=== PATIENT | female | born 1965 | race Caucasian/White ===

== ENCOUNTER 2020-08-04 11:24 | Outpatient (REF) | payer OTHER, SELFPAY ==
[2020-08-04 13:35] LABS: Free T4 (Free Thyroxine) 0.92 ng/dL (0.71-1.85); Thyroid Stimulating Hormone 0.35 mIU/mL (0.32-4.0)
[2020-08-05 18:57] LABS: Triiodothyronine T3 Free 3.1 pg/mL (2.3-4.2)
[2020-08-06 13:22] LABS: Thyroglobulin Antibodies <1 IU/mL (< or = 1); Thyroid Peroxidase Antibodies 1 IU/mL (<9)
[2020-08-10 14:11] LABS: Thyrotropin Receptor Antibody 1.11 IU/L (<=2.00)
[2020-08-10 15:22] LABS: Thyroid Stimulating Immunoglob <89 % baseline (<140)
== END 2020-08-04 11:25 | disposition home or self-care (01) ==
LOC: HO.LAB 11:24
PROVIDERS: PCP Internal Medicine; Visit Provider Internal Medicine Endocrinology, Diabetes & Metabolism
DX: E05.00 Thyrotoxicosis with diffuse goiter without thyrotoxic crisis or storm (principal)
CPT/HCPCS: 36415; 83520; 84439; 84443; 84445; 84481; 86376; 86800

== ENCOUNTER 2020-08-05 10:11 | Outpatient (REF) | payer OTHER, SELFPAY ==
--- NOTE | 2020-08-05 10:50 | XR_ITS ---
EXAMINATION: XR knee RT 4V, XR knee LT 4V CLINICAL INFORMATION: Reason for Exam M19.90 - Unspecified osteoarthritis, unspecified site COMPARISON: None available at the time of this dictation. TECHNIQUE: frontal, lateral, tunnel and patella sunrise views FINDINGS: BONES: No fracture or dislocation is present. JOINTS: Narrowing of joint spaces and developed osteophytes from the edges of articular surfaces suggest degenerative osteoarthritis. SOFT TISSUE: Normal IMPRESSION: Mild DJD involving primarily medial compartments. There is no joint effusion.
[2020-08-05 12:25] LABS: Anion Gap 13 (12-20); Blood Urea Nitrogen 13 mg/dL (9-16); Carbon Dioxide 29 mmol/L (22-29); Chloride 101 mmol/L (96-108); Estimated Glomerular Filt Rate > 60; Glucose Fasting 81 mg/dL (60-99); Potassium 4.5 mmol/l (3.3-5.1); Rheumatoid Factor < 15.0 IU/mL (<15.0); Sodium 138 mmol/L (135-145)
[2020-08-05 13:10] LABS: Erythrocyte Sedimentation Rate 16 MM/HR (0-20)
== END 2020-08-05 10:12 | disposition home or self-care (01) ==
LOC: HO.LAB 10:11
PROVIDERS: PCP Internal Medicine; Visit Provider Nurse Practitioner Family
DX: M19.90 Unspecified osteoarthritis, unspecified site (principal); E05.00 Thyrotoxicosis with diffuse goiter without thyrotoxic crisis or storm; E04.9 Nontoxic goiter, unspecified
CPT/HCPCS: 36415; 73564; 80048; 85652; 86431; 99213

== ENCOUNTER 2020-09-01 12:31 | Outpatient (REF) | payer OTHER, SELFPAY | END 2020-09-01 12:32 | disposition home or self-care (01) | LOC: HO.LAB 12:31 | PROVIDERS: Visit Provider Internal Medicine | DX: Z20.828 Contact with and (suspected) exposure to other viral communicable diseases (principal) | CPT/HCPCS: C9803; U0003 ==

== ENCOUNTER 2020-09-18 11:21 | Outpatient (REF) | payer OTHER, SELFPAY ==
--- NOTE | 2020-09-18 11:38 | XR_ITS ---
EXAMINATION: XR ABDOMEN KUB CLINICAL INDICATION: R31.9 - Hematuria, unspecified COMPARISON: Lumbar spine radiographs 04/01/2020 TECHNIQUE: AP x2 views of the abdomen. FINDINGS: There are no visible urinary tract calculi. Calcified phleboliths is seen right lateral hemipelvis. There is moderate stool throughout the colon. No gaseous dilatation of bowel. The lung bases are clear. There are degenerative changes lumbosacral spine. XR/XR KUB IMPRESSION: No visible urinary tract calculi.
[2020-09-18 11:54] LABS: Urine Cytology See Pathology rpt
[2020-09-18 12:14] LABS: Glucose Urine UA NEG (NEG); Leukocyte Esterase Urine NEG (NEG); Nitrite Urine NEG (NEG); Specific Gravity - Urine 1.025 (1.005-1.025); Urine Blood 1+ (NEG); Urine Ketones NEG (NEG); Urine Protein NEG (NEG-TRACE)
[2020-09-18 12:16] LABS: Appearance Urine CLEAR; Color Urine YELLOW
[2020-09-18 12:44] LABS: Free T4 (Free Thyroxine) 0.86 ng/dL (0.71-1.85); Thyroid Stimulating Hormone 0.37 uIU/mL (0.32-4.0)
[2020-09-18 13:12] LABS: Mucus Urine TRACE /LPF; Squamous Epithelial Cell Urine TRACE /LPF; WBC Urine 0 /HPF (0-4)
[2020-09-19 10:38] LABS: Triiodothyronine T3 Total 99 ng/dL (76-181)
== END 2020-09-18 11:22 | disposition home or self-care (01) ==
LOC: HO.LAB 11:21
PROVIDERS: Internal Medicine Endocrinology, Diabetes & Metabolism; PCP Internal Medicine; Visit Provider Internal Medicine
DX: R31.9 Hematuria, unspecified (principal); E05.00 Thyrotoxicosis with diffuse goiter without thyrotoxic crisis or storm
CPT/HCPCS: 74018; 81001; 84439; 84443; 84480; 88112

== ENCOUNTER 2020-09-22 13:41 | Outpatient (REF) | payer OTHER, SELFPAY ==
[2020-09-22 14:18] LABS: Glucose Urine UA NEG (NEG); Leukocyte Esterase Urine NEG (NEG); Nitrite Urine NEG (NEG); PH 6.5 (5.0-8.0); Urine Blood TRACE (NEG); Urine Ketones NEG (NEG); Urine Protein NEG (NEG-TRACE)
[2020-09-22 14:19] LABS: Appearance Urine CLEAR; Color Urine YELLOW
[2020-09-22 14:33] LABS: WBC Urine 0 /HPF (0-4)
[2020-09-23 08:04] LABS: HBc Num1 0.05 S/CO (0.00-0.79); HBsAGNum1 0.23 S/CO (0.00-0.99); Hepatitis B Core Antibody Nonreactive (Nonreactive); Hepatitis B Surface Antigen Negative (Negative)
[2020-09-23 08:29] LABS: HBS Num1 0.15 mIU/mL (0-7.99); ~HepC Num1 0.06 S/CO (0.00-0.79); ~Hepatitis B Surface Antibody NONREACTIVE (Nonreactive); ~Hepatitis C Antibody Nonreactive (Nonreactive)
[2020-09-24 03:08] LABS: Mumps Virus IgG Antibody <9.00 AU/mL; Rubella IgG Antibody 2.89 Index; Rubeola IgG (Measles) >300.00 AU/mL; Varicella IgG Antibody >4000.00 index
== END 2020-09-22 13:42 | disposition home or self-care (01) ==
LOC: HO.LAB 13:41
PROVIDERS: PCP Internal Medicine; Visit Provider Internal Medicine
DX: R31.9 Hematuria, unspecified (principal); Z02.1 Encounter for pre-employment examination
CPT/HCPCS: 81001; 86704; 86706; 86735; 86762; 86765; 86787; 86803; 87340

== ENCOUNTER 2020-11-21 09:54 | Outpatient (REF) | payer OTHER, SELFPAY ==
[2020-11-21 10:15] LABS: MANUAL DIFF FLAG NO
[2020-11-21 10:25] LABS: Basophils Percent Auto 0.4 % (0-2); Eosinophils Absolute Auto 0.2 X10*3/uL (0.0-0.4); Eosinophils Percent Auto 3.5 % (0-4); Hematocrit 39.3 % (37-47); Imm Gran Abs Auto 0.01 X10*3/uL (0.00-0.03); Imm Gran Pct Auto 0.2 % (0.0-0.4); Lymphocytes Absolute Auto 1.7 X10*3/uL (1.2-4.9); Lymphocytes Percent Auto 34.3 % (20-40); Mean Corpuscular HGB Conc 33.1 g/dl (31.0-35.0); Mean Corpuscular Hemoglobin 31.4 pg (27.0-33.0); Mean Corpuscular Volume 94.9 fL (80-98); Mean Platelet Volume 9.4 fL (9.4-12.3); Monocytes Absolute Auto 0.3 X10*3/uL (0.1-1.2); Monocytes Percent Auto 6.4 % (2-11); Neutrophils Absolute Auto 2.7 X10*3/uL (2.0-8.3); Neutrophils Percent Auto 55.2 % (45-73); Platelet Count 342 X10*3/uL (160-400); Red Blood Count 4.14 X10*6/uL (4.20-5.50); Red Cell Distribution Width 11.4 % (11.0-16.0); White Blood Count 4.8 X10*3/uL (4.8-10.8)
[2020-11-21 10:50] LABS: Anion Gap 11 (12-20); Blood Urea Nitrogen 15 mg/dL (9-16); Calcium 9.7 mg/dL (8.4-10.2); Carbon Dioxide 29 mmol/L (22-29); Chloride 104 mmol/L (96-108); Cholesterol 252 mg/dL; Estimated Glomerular Filt Rate > 60; Glucose Fasting 94 mg/dL (60-99); HDL Cholesterol 49 mg/dL; LDL Cholesterol Calculated 183 mg/dl; Potassium 4.2 mmol/L (3.3-5.1); Rheumatoid Factor < 15.0 IU/mL (<15.0); Sodium 140 mmol/L (135-145); Triglycerides 103 mg/dL
[2020-11-21 11:10] LABS: TSH reflex Free T4 0.44 uIU/mL (0.32-4.0)
== END 2020-11-21 09:55 | disposition home or self-care (01) ==
LOC: HO.LAB 09:54
PROVIDERS: PCP Internal Medicine; Visit Provider Nurse Practitioner Family
DX: M19.90 Unspecified osteoarthritis, unspecified site (principal); M25.561 Pain in right knee; M25.562 Pain in left knee; E05.00 Thyrotoxicosis with diffuse goiter without thyrotoxic crisis or storm
CPT/HCPCS: 36415; 80048; 80061; 84443; 85025; 86431

== ENCOUNTER 2021-02-03 12:15 | Outpatient (REF) | payer OTHER, SELFPAY ==
--- NOTE | ~2021-02-03 | XR_ITS ---
EXAMINATION: XR ANKLE, RIGHT XR ANKLE, LEFT CLINICAL INFORMATION: M25.50 - Pain in unspecified joint COMPARISON: None TECHNIQUE: AP, lateral, and mortise views of each ankle. FINDINGS: RIGHT ANKLE: No fracture. Alignment is anatomic. Ankle mortise is symmetric. Joint spaces are maintained. No ankle joint effusion. Large enthesopathic spur is present at the Achilles tendon insertion on the calcaneus. LEFT ANKLE: No fracture. Alignment is anatomic. Ankle mortise is symmetric. Joint spaces are maintained. No ankle joint effusion. Large enthesopathic spurs are present at the Achilles tendon insertion and plantar fascial origin on the calcaneus. XR/XR ankle RT min 3V IMPRESSION: Large enthesopathic spurs at the Achilles tendon insertions on the calcanei bilaterally. Otherwise normal radiographs of the ankles.
--- NOTE | ~2021-02-03 | XR_ITS ---
EXAMINATION: XR ANKLE, RIGHT XR ANKLE, LEFT CLINICAL INFORMATION: M25.50 - Pain in unspecified joint COMPARISON: None TECHNIQUE: AP, lateral, and mortise views of each ankle. FINDINGS: RIGHT ANKLE: No fracture. Alignment is anatomic. Ankle mortise is symmetric. Joint spaces are maintained. No ankle joint effusion. Large enthesopathic spur is present at the Achilles tendon insertion on the calcaneus. LEFT ANKLE: No fracture. Alignment is anatomic. Ankle mortise is symmetric. Joint spaces are maintained. No ankle joint effusion. Large enthesopathic spurs are present at the Achilles tendon insertion and plantar fascial origin on the calcaneus. XR/XR ankle LT min 3V IMPRESSION: Large enthesopathic spurs at the Achilles tendon insertions on the calcanei bilaterally. Otherwise normal radiographs of the ankles.
== END 2021-02-03 12:16 | disposition home or self-care (01) ==
LOC: HO.XRAY 12:15
PROVIDERS: PCP Internal Medicine; Visit Provider Student in an Organized Health Care Education/Training Program
DX: M25.572 Pain in left ankle and joints of left foot (principal); M25.571 Pain in right ankle and joints of right foot
CPT/HCPCS: 73610; 99202

== ENCOUNTER 2021-02-06 09:41 | Outpatient (REF) | payer OTHER, SELFPAY ==
[2021-02-06 10:42] LABS: MANUAL DIFF FLAG NO
[2021-02-06 10:47] LABS: Basophils Percent Auto 0.2 % (0-2); Eosinophils Absolute Auto 0.1 X10*3/uL (0.0-0.4); Eosinophils Percent Auto 3.1 % (0-4); Hematocrit 41.3 % (37-47); Hemoglobin 13.9 g/dl (12.0-16.0); Lymphocytes Absolute Auto 1.6 X10*3/uL (1.2-4.9); Lymphocytes Percent Auto 36.9 % (20-40); Mean Corpuscular HGB Conc 33.7 g/dl (31.0-35.0); Mean Corpuscular Hemoglobin 31.7 pg (27.0-33.0); Mean Corpuscular Volume 94.3 fL (80-98); Mean Platelet Volume 9.7 fL (9.4-12.3); Monocytes Absolute Auto 0.3 X10*3/uL (0.1-1.2); Monocytes Percent Auto 6.1 % (2-11); Neutrophils Absolute Auto 2.3 X10*3/uL (2.0-8.3); Neutrophils Percent Auto 53.7 % (45-73); Platelet Count 313 X10*3/uL (160-400); Red Blood Count 4.38 X10*6/uL (4.20-5.50); Red Cell Distribution Width 11.1 % (11.0-16.0); White Blood Count 4.3 X10*3/uL (4.8-10.8)
[2021-02-06 11:05] LABS: Glucose Urine UA NEG (NEG); Leukocyte Esterase Urine NEG (NEG); Nitrite Urine NEG (NEG); PH 7.5 (5.0-8.0); Urine Blood TRACE (NEG); Urine Ketones NEG (NEG); Urine Protein NEG (NEG-TRACE)
[2021-02-06 11:25] LABS: Erythrocyte Sedimentation Rate 16 MM/HR (0-20)
[2021-02-06 11:26] LABS: Appearance Urine HAZY; Color Urine YELLOW
[2021-02-06 11:27] LABS: WBC Urine 0-2 /HPF (0-4)
[2021-02-06 11:28] LABS: Amorphous Sediment Urine 2+ /LPF; Mucus Urine 1+ /LPF; Squamous Epithelial Cell Urine 2+ /LPF
[2021-02-06 11:52] LABS: Alanine Aminotransferase 40 U/L (0-31); Albumin Level 4.4 g/dL (3.5-5.0); Alkaline Phosphatase 78 U/L (39-117); Anion Gap 13 (12-20); Aspartate Amino Transferase 22 U/L (5-31); Bilirubin Total 0.6 mg/dL (0.0-1.0); Blood Urea Nitrogen 16 mg/dL (9-16); Carbon Dioxide 28 mmol/L (22-29); Chloride 105 mmol/L (96-108); Cholesterol 238 mg/dL; Estimated Glomerular Filt Rate > 60; Glucose Fasting 93 mg/dL (60-99); HDL Cholesterol 43 mg/dL; LDL Cholesterol Calculated 153 mg/dl; Potassium 4.1 mmol/L (3.3-5.1); Rheumatoid Factor < 15.0 IU/mL (<15.0); Sodium 142 mmol/L (135-145); Total Protein 7.4 g/dL (6.5-8.0); Triglycerides 211 mg/dL
[2021-02-06 12:15] LABS: Thyroid Stimulating Hormone 0.41 uIU/mL (0.32-4.0)
[2021-02-07 08:52] LABS: Lyme Abs Screen <0.90 index
[2021-02-08 15:41] LABS: Cyclic Citrullinated Peptide <16 UNITS
[2021-02-10 11:43] LABS: Vitamin D 25-OH, D2 4 ng/mL; Vitamin D 25-OH, D3 55 ng/mL; Vitamin D 25-OH, Total 59 ng/mL (30-100)
== END 2021-02-06 09:42 | disposition home or self-care (01) ==
LOC: HO.LAB 09:41
PROVIDERS: PCP Internal Medicine; Visit Provider Student in an Organized Health Care Education/Training Program
DX: M25.50 Pain in unspecified joint (principal); M19.90 Unspecified osteoarthritis, unspecified site
CPT/HCPCS: 36415; 80053; 80061; 81001; 82306; 84443; 85025; 85652; 86140; 86200; 86431; 86617; 86618

== ENCOUNTER → 2021-02-18 15:41 | Outpatient (BNVA) | payer OTHER, SELFPAY | PROVIDERS: PCP Internal Medicine; Visit Provider Student in an Organized Health Care Education/Training Program | DX: M25.50 Pain in unspecified joint (principal); E78.5 Hyperlipidemia, unspecified | CPT/HCPCS: 99212 ==

== ENCOUNTER 2021-07-28 13:26 | Emergency (ER) | payer OTHER, SELFPAY ==
--- NOTE | ~2021-07-28 | XR_ITS ---
EXAMINATION: XR ANKLE, LEFT CLINICAL INFORMATION: Pain COMPARISON: Previous x-ray most recent January 2021 TECHNIQUE: AP, lateral, and mortise views of the left ankle. FINDINGS: Bone alignment is normal. No fracture or dislocation is seen. The ankle mortise is normal. There is a calcaneal spur at the Achilles tendon insertion. XR/XR ankle LT min 3V IMPRESSION: Calcaneal spur otherwise unremarkable exam.
[2021-07-28 14:30] VITALS: BP 136/73; PULSE 80; RESP 18; TEMP 36.1; O2SAT 100; BMI 27.0
--- NOTE | 2021-07-28 14:55 | ED_ITS ---
HPI - Extremity Injury (Lower) General Chief Complaint: Extremity Injury, Lower Stated Complaint: l ankle pain Time Seen by Provider: 07/28/21 13:30 Source: patient Mode of arrival: ambulatory Limitations: no limitations History of Present Illness HPI Narrative: 56-year-old female presenting to the ER with left ankle pain after she twisted her ankle at home early this morning. She reports severe pain whenever she tries to put pressure or weight on her foot. She is walking with a limp. She was unable to go to work. She has a history of several ankle sprains on both ankles. She denies any numbness, tingling, weakness, or wounds to her foot. complaint: ankle injury Onset (ago): hour(s) Type of Injury: inversion Place: home Severity: severe Severity scale (1-10): 8 Relieving factors: cold therapy and immobilization Exacerbating factors: weight bearing, movement and palpation Context: walking Associated symptoms: swelling and able to partially bear weight Other symptoms: none Treatments prior to arrival: cold therapy Related Data Home Medications Medication Instructions Recorded Confirmed acetaminophen 500 mg tablet 1,000 mg PO Q6H PRN 02/03/21 02/18/21 (Tylenol Extra Strength) menthol 16 % topical spray (Icy spray TOPICAL 02/03/21 02/18/21 Hot (menthol)) multivitamin 1 tab PO DAILY 02/03/21 02/18/21 Previous Rx's Medication Instructions Recorded diclofenac sodium 1 % topical gel 2 g TOPICAL BID #100 g 02/03/21 (Voltaren) ibuprofen 600 mg tablet 600 mg PO Q8H PRN #14 tab 07/28/21 Allergies Allergy/AdvReac Type Severity Reaction Status Date / Time No Known Allergies Allergy Verified 07/28/21 14:30 Review of Systems Review of Systems: Constitutional: No Fever, No Chills Cardiovascular: No Chest Pain, No SOB Gastrointestinal: No Nausea, No Vomiting Musculoskeletal: + joint pain, No Myalgias Skin: No Skin Lesions, No rash Neuro: No Weakness, No Numbness, No Dizziness, No Headache Psych: + Anxiety/Panic Heme/Lymph: No Bruising PMFSH Past Medical History Medical History Acute pain of both knees Arthritis Arthritis Arthritis Dyslipidemia GERD (gastroesophageal reflux disease) Goiter Graves' disease in remission Surgical History History of breast biopsy History of hysterectomy Family History Family History Father Hypertension Rheumatoid arthritis Mother Stroke Rheumatoid arthritis Paternal Grandfather Prostate cancer Paternal Uncle Prostate cancer Paternal Aunt Colon cancer Social History Social History Alcohol intake: never Advance Directives: No Advance Directives Information Provided: Yes Patient : No Physical Exam Vital Signs: Vital Signs: Last Vital Signs Temp 96.9 F 07/28/21 14:30 Pulse 80 07/28/21 14:30 Resp 18 07/28/21 14:30 BP 136/73 07/28/21 14:30 Pulse Ox 100 07/28/21 14:30 Body Mass Index 27.0 Appearance: Alert. Oriented X3. No acute distress. HEENT: normal inspection CVS: Normal heart rate and rhythm. Pulses normal. Respiratory: No respiratory distress. Skin: Skin warm and dry. Normal skin color. Normal skin turgor. No rashes. Extremities: Normal inspection of left ankle, no swelling, ecchymosis, d eformity. Tenderness along the lateral aspect of the ankle including the lateral malleolus. Normal range of motion with pain on plantar flexion. Foot is warm and well perfused with 2+ DP pulse. Neuro: Oriented X 3. No motor deficit. No sensory deficit. Gait not tested due to pain Course Course Course Narrative: 56-year-old female presenting with left ankle pain after she twisted her ankle on an object in the dark at home this morning. She is able to walk around but with a severe limp due to pain. She reports pain whenever she puts pressure on her foot. She reports history of several ankle sprains in the past. X-rays pending. Reevaluation(s) Reevaluation #1: X-rays negative for any acute fracture dislocation. She has been placed in a Duane wrap for comfort and compression. She will be provided crutches until her pain is improving of her so she can bear weight. We discussed our RICE treatments and supportive care. She is stable for d/c home. Critical Care Time Critical Care Time Critical Care Time: No Discharge Plan Discharge Clinical Impression: Ankle sprain and strain Patient Disposition: Home, Self-Care Instructions: Ankle Sprain (ED), R.I.C.E. Treatment (ED) Additional Instructions: Your x-ray today was normal. Rest you ankle and elevate your foot when possible. Recommend DUANE wrap for support and compression. Use ice several times per day for the next 48 hours. You may bear weight as tolerated. If pain is too severe, use crutches until better. Take Motrin and/or Tylenol as needed for pain. Follow up with your doctor as needed. Prescriptions: New ibuprofen 600 mg tablet 600 mg PO Q8H PRN (Reason: pain) Qty: 14 RF: 0 No Action multivitamin Tablet 1 tab PO DAILY RF: 0 acetaminophen [Tylenol Extra Strength] 500 mg tablet 1,000 mg PO Q6H PRNRF: 0 Icy Hot (menthol) 16 % aerosol,spray topical RF: 0 diclofenac sodium [Voltaren] 1 % gel 2 g topical BID Qty: 100 RF: 2 Stand Alone Forms: Work/School Release
== END 2021-07-28 15:20 | disposition home or self-care (01) ==
LOC: HO.ED 15:00
PROVIDERS: Emergency Provider Internal Medicine; PCP Internal Medicine
DX: S93.402A Sprain of unspecified ligament of left ankle, initial encounter (principal); S96.912A Strain of unspecified muscle and tendon at ankle and foot level, left foot, initial encounter; X50.1XXA Overexertion from prolonged static or awkward postures, initial encounter; Y93.9 Activity, unspecified; Y92.009 Unspecified place in unspecified non-institutional (private) residence as the place of occurrence of the external cause; Y99.9 Unspecified external cause status
CPT/HCPCS: 73610; 99283

== ENCOUNTER 2021-08-03 23:44 | Emergency (ER) | payer OTHER, SELFPAY ==
--- NOTE | ~2021-08-03 | US_ITS ---
EXAMINATION: US VENOUS ULTRASOUND WITH DOPPLER LOWER EXTREMITY, BILATERAL CLINICAL INFORMATION: Pain COMPARISON: None TECHNIQUE: Ultrasound of the deep veins is performed from the hip to the calf with compression sonography and color and pulse Doppler assessment. Spectral analysis with color-flow imaging is performed. FINDINGS: RIGHT: There is normal venous compression and respiratory variation and augmented flow. The visualized common femoral vein, superficial femoral vein, profunda femoral vein, popliteal vein, and the trifurcation region shows no evidence of deep venous thrombosis. There is no significant popliteal fossa cyst. LEFT: There is normal venous compression and respiratory variation and augmented flow. The visualized common femoral vein, superficial femoral vein, profunda femoral vein, popliteal vein, and the trifurcation region shows no evidence of deep venous thrombosis. There is no significant popliteal fossa cyst. If the patient's symptoms persist, followup ultrasound in 5 days 7 days might be of value to exclude proximal propagation from a non-visualized calf vein. US/US venous duplex LE BI IMPRESSION: No DVT demonstrated in the bilateral lower extremities.
--- NOTE | ~2021-08-03 | XR_ITS ---
EXAMINATION: XR CHEST CLINICAL INFORMATION: Bilateral rib pain, question mass left side COMPARISON: 10/03/2017 TECHNIQUE: 2 views of the chest were obtained. FINDINGS: Lung volumes are symmetric. No focal consolidation is seen. No evidence of pneumothorax, pleural effusion, or pulmonary edema. The cardiomediastinal contour is unremarkable. No acute osseous findings are seen. XR/XR chest 2V IMPRESSION: No acute findings.
[2021-08-03 23:45] VITALS: BP 134/69; PULSE 65; RESP 16; TEMP 36.2; O2SAT 100; BMI 27.8
[2021-08-04 00:46] LABS: MANUAL DIFF FLAG NO
[2021-08-04 00:48] LABS: Basophils Percent Auto 0.5 % (0-2); Eosinophils Absolute Auto 0.1 X10*3/uL (0.0-0.4); Eosinophils Percent Auto 1.9 % (0-4); Hematocrit 37.8 % (37-47); Hemoglobin 13.1 g/dl (12.0-16.0); Imm Gran Abs Auto 0.01 X10*3/uL (0.00-0.03); Imm Gran Pct Auto 0.2 % (0.0-0.4); Lymphocytes Absolute Auto 2.8 X10*3/uL (1.2-4.9); Lymphocytes Percent Auto 44.3 % (20-40); Mean Corpuscular HGB Conc 34.7 g/dl (31.0-35.0); Mean Corpuscular Hemoglobin 32.1 pg (27.0-33.0); Mean Corpuscular Volume 92.6 fL (80-98); Mean Platelet Volume 9.4 fL (9.4-12.3); Monocytes Absolute Auto 0.4 X10*3/uL (0.1-1.2); Monocytes Percent Auto 6.9 % (2-11); Neutrophils Absolute Auto 2.9 X10*3/uL (2.0-8.3); Neutrophils Percent Auto 46.2 % (45-73); Platelet Count 297 X10*3/uL (160-400); Red Blood Count 4.08 X10*6/uL (4.20-5.50); Red Cell Distribution Width 11.4 % (11.0-16.0); White Blood Count 6.3 X10*3/uL (4.8-10.8)
--- NOTE | 2021-08-04 01:03 | ED.GENADULT ---
HPI - General Adult General Chief complaint: General Medical <Maria A Henao NP - Last Filed: 08/04/21 02:09> Stated complaint: bilateral leg pain/rib pain <ANTONIA Ferro Last Filed: 08/04/21 02:09> Time Seen by Provider: 08/04/21 00:04 <Maria A Henao NP - Last Filed: 08/04/21 02:09> Source: patient <ANTONIA Ferro Last Filed: 08/04/21 02:09> Mode of arrival: ambulatory <ANTONIA Ferro Last Filed: 08/04/21 02:09> Limitations: no limitations <ANTONIA Ferro Last Filed: 08/04/21 02:09> History of Present Illness HPI narrative: 56-year-old female with a past medical history of arthritis here with complaints of pain to both knees and lower legs for months to years. Patient denies any injury or trauma. She feels like pain is worsened in the morning and she often feels stiffness in her joints. No swelling or redness associated with this no fevers or chills. No recent tick bite or any rashes seen. Patient was seen in February by rheumatology and symptoms were thought to be secondary to arthritis and she was prescribed Voltaren topical which the patient use for short time but no longer is using. She did have workup at that time for rheumatoid arthritis which was negative. Also complaining of bilateral rib pain for several days with no injury or trauma. No shortness of breath or chest pain. Not worsened with deep breathing. No abdominal pain, vomiting or diarrhea. <ANTONIA Ferro Last Filed: 08/04/21 02:09> Related Data Home medications: Home Medications Medication Instructions Recorded Confirmed acetaminophen 500 mg tablet 1,000 mg PO Q6H PRN 02/03/21 02/18/21 (Tylenol Extra Strength) menthol 16 % topical spray (Icy spray TOPICAL 02/03/21 02/18/21 Hot (menthol)) multivitamin 1 tab PO DAILY 02/03/21 02/18/21 Previous Rx's Medication Instructions Recorded diclofenac sodium 1 % topical gel 2 g TOPICAL BID #100 g 04/21/21 (Voltaren) ibuprofen 600 mg tablet 600 mg PO Q8H PRN #14 tab 07/28/21 cyclobenzaprine 10 mg tablet 10 mg PO TID PRN #10 tab 08/04/21 lidocaine 5 % topical patch 1 patch TOPICAL DAILY #15 ea 08/04/21 (Lidoderm) naproxen 500 mg tablet 500 mg PO BID PRN #20 tab 08/04/21 <Maria A Henao NP - Last Filed: 08/04/21 02:09> Allergies/adverse reactions: Allergies Allergy/AdvReac Type Severity Reaction Status Date / Time No Known Allergies Allergy Verified 07/28/21 14:30 <Maria A Henao NP - Last Filed: 08/04/21 02:09> Review of Systems Review of Systems: Yes all other systems are reviewed and are negative <ANTONIA Ferro Last Filed: 08/04/21 02:09> Constitutional: Constitutional: Reports no additional constitutional complaints, Denies body ache(s), Denies chills, Denies fever(s), Denies headache(s) and Denies weakness <Maria A Henao NP - Last Filed: 08/04/21 02:09> Eyes: Eyes: Reports no additional eye complaints and Denies change in vision <Maria A Henao NP - Last Filed: 08/04/21 02:09> ENT: Reports system reviewed and no additional complaints, except as documented, Denies dizziness, Denies headache(s), Denies nasal congestion, Denies nasal discharge and Denies neck pain <Maria A Henao NP - Last Filed: 08/04/21 02:09> Cardiovascular: Cardiovascular: Reports no additional cardiovascular complaints, Denies chest pain, Denies leg edema and Denies dyspnea <Maria A Henao NP - Last Filed: 08/04/21 02:09> Respiratory: Respiratory: Reports no additional respiratory complaints, Denies cough and Denies dyspnea <Maria A Henao NP - Last Filed: 08/04/21 02:09> Gastrointestinal: Gastrointestinal: Reports no additional gastrointestinal complaints, Denies abdominal pain, Denies diarrhea, Denies nausea and Denies vomiting <Maria A Henao NP - Last Filed: 08/04/21 02:09> Genitourinary: Genitourinary: Reports no additional female genitourinary complaints and Denies urinary incontinence <Maria A Henao NP - Last Filed: 08/04/21 02:09> Musculoskeletal: Musculoskeletal: Reports no additional musculoskeletal complaints, Denies back pain, Reports arthralgias, Denies joint swelling, Denies neck pain, Denies numbness and Denies tingling <Maria A Henao NP - Last Filed: 08/04/21 02:09> Integumentary/Breasts: Skin/Breast: Reports system reviewed and no additional complaints, except as docu and Denies rash <Maria A Henao NP - Last Filed: 08/04/21 02:09> Neurologic: Reports system reviewed and no additional complaints, except as documented, Denies Abnormal speech present, Denies dizziness, Denies headache(s), Denies numbness, Denies tingling and Denies weakness <Maria A Henao NP - Last Filed: 08/04/21 02:09> [facility] Past Medical History Attestation statement: The following information was validated with the patient. <Maria A Henao NP - Last Filed: 08/04/21 02:09> Source: old records reviewed and nursing notes reviewed <Maria A Henao NP - Last Filed: 08/04/21 02:09> Medical History: Medical History Acute pain of both knees Arthritis Arthritis Arthritis Dyslipidemia GERD (gastroesophageal reflux disease) Goiter Graves' disease in remission <Maria A Henao NP - Last Filed: 08/04/21 02:09> Surgical History: Surgical History History of breast biopsy History of hysterectomy <Maria A Henao NP - Last Filed: 08/04/21 02:09> Family History Family History: Family History Father Hypertension Rheumatoid arthritis Mother Stroke Rheumatoid arthritis Paternal Grandfather Prostate cancer Paternal Uncle Prostate cancer Paternal Aunt Colon cancer <Maria A Henao NP - Last Filed: 08/04/21 02:09> Social History Social History: Social History Alcohol intake: never Advance Directives: No Advance Directives Information Provided: Yes Patient : No <Maria A Henao NP - Last Filed: 08/04/21 02:09> Physical Exam Vital Signs: Vital Signs: Last Vital Signs Temp 97.2 F 08/03/21 23:45 Pulse 65 08/03/21 23:45 Resp 16 08/03/21 23:45 BP 134/69 08/03/21 23:45 Pulse Ox 100 08/03/21 23:45 Body Mass Index 27.8 <Maria A Henao NP - Last Filed: 08/04/21 02:09> Vital Signs: Last Vital Signs Temp 97.2 F 08/03/21 23:45 Pulse 65 08/03/21 23:45 Resp 16 08/03/21 23:45 BP 134/69 08/03/21 23:45 Pulse Ox 100 08/03/21 23:45 Body Mass Index 27.8 <Deann Parker MD - Last Filed: 08/04/21 03:25> Const: General: cooperative, healthy appearing, comfortable and no acute distress <Maria A Henao NP - Last Filed: 08/04/21 02:09> Orientation/consciousness: patient oriented x3 <Maria A Henao NP - Last Filed: 08/04/21 02:09> Limitations: no limitations <Maria A Henao NP - Last Filed: 08/04/21 02:09> HENMT: Head: Yes normal to inspection <Maria A Henao NP - Last Filed: 08/04/21 02:09> Ears: hearing grossly normal bilaterally <Maria A Henao NP - Last Filed: 08/04/21 02:09> General nose exam: Normal external nose present <Maria A Henao NP - Last Filed: 08/04/21 02:09> Face and sinus: Yes normal facial exam <Maria A Henao NP - Last Filed: 08/04/21 02:09> Mouth: Normal oral and palatal mucosa present <Maria A Henao NP - Last Filed: 08/04/21 02:09> Throat: Yes posterior oropharynx normal <Maria A Henao NP - Last Filed: 08/04/21 02:09> Eyes: General: appearance normal, both eyes and all related structures <Maria A Henao NP - Last Filed: 08/04/21 02:09> Pupils: Equal, round and reactive pupils present <Maria A Henao NP - Last Filed: 08/04/21 02:09> Neck: Neck: Yes normal visual inspection <Maria A Henao NP - Last Filed: 08/04/21 02:09> Chest: Other: mild tenderness to bilateral ribs with no crepitus, ecchymosis noted. <Maria A Henao NP - Last Filed: 08/04/21 02:09> Chest palpation & inspection: normal inspection of the chest <Maria A Henao NP - Last Filed: 08/04/21 02:09> Resp: Effort & Inspection: normal respiratory effort <Maria A Henao NP - Last Filed: 08/04/21 02:09> Auscultation: clear to auscultation bilaterally <Maria A Henao NP - Last Filed: 08/04/21 02:09> Cardio: Rate: regular rate <Maria A Henao NP - Last Filed: 08/04/21 02:09> Rhythm: regular rhythm <Maria A Henao NP - Last Filed: 08/04/21 02:09> Peripheral pulses: Peripheral pulses 2+ throughout <Maria A Henao NP - Last Filed: 08/04/21 02:09> GI: Inspection: Yes normal to inspection <Maria A Henao NP - Last Filed: 08/04/21 02:09> Palpation (GI): Soft to palpation and nontender <Maria A Henao NP - Last Filed: 08/04/21 02:09> Auscultation: normal bowel sounds <Maria A Henao NP - Last Filed: 08/04/21 02:09> Back/Spine/Pelvis: Thoracic/Lumbar Spine: thoracic and lumbar spine normal to inspection <Maria A Henao NP - Last Filed: 08/04/21 02:09> Skin: General skin exam: no rashes or lesions noted <Maria A Henao NP - Last Filed: 08/04/21 02:09> Neuro: General: patient oriented x3, no focal motor deficits and normal sensation to monofilament <Maria A Henao NP - Last Filed: 08/04/21 02:09> Cranial nerves: Yes Equal, round and reactive pupils present <Maria A Henao NP - Last Filed: 08/04/21 02:09> Cognition (Neuro): normal cognition <Maria A Henao NP - Last Filed: 08/04/21 02:09> Speech: No Abnormal speech present <Maria A Henao NP - Last Filed: 08/04/21 02:09> Gait exam (Neuro): Normal gait present <Maria A Henao NP - Last Filed: 08/04/21 02:09> Motor exam (neuro): 5/5 motor strength present throughout <Maria A Henao NP - Last Filed: 08/04/21 02:09> Extrem: Other: diffuse tenderness of lower legs/thighs bilaterally. No swelling, erythema or wounds noted. Tenderness to bilateral ankles with ROM and knees with ROM but patient is able. <Maria A Henao NP - Last Filed: 08/04/21 02:09> General: Yes normal to inspection <Maria A Henao NP - Last Filed: 08/04/21 02:09> Course Course Course Narrative: 56 yo female here with acute on chronic LE pain for several days (longstanding for years). Seen by rheumatology in the past, did physical therapy with continued pain. On exam diffuse tendernes to LE with no bony abnormality. Also c/o bilateral rib pain x several days with no new injury or trauma. Plan for US, labs, CXR. 0200-labs are unremarkable. Chest x-ray shows no acute finding. Ultrasound is pending. Likely poly-arthralgias which has been a chronic problem for the patient in the past. She can follow up outpatient with her providers. Signed out to attending Dr Parker pending US. <Maria A Henao NP - Last Filed: 08/04/21 02:09> 56 yo female here with acute on chronic LE pain for several days (longstanding for years). Seen by rheumatology in the past, did physical therapy with continued pain. On exam diffuse tendernes to LE with no bony abnormality. Also c/o bilateral rib pain x several days with no new injury or trauma. Plan for US, labs, CXR. 0200-labs are unremarkable. Chest x-ray shows no acute finding. Ultrasound is pending. Likely poly-arthralgias which has been a chronic problem for the patient in the past. She can follow up outpatient with her providers. Signed out to attending Dr Parker pending US. I received sign-out from nurse practitioner Juliano, ultrasound of lower extremities negative. Patient's pain likely musculoskeletal <Deann Parker MD - Last Filed: 08/04/21 03:25> Medical Decision Making Medical Records Medical records reviewed: Yes I reviewed the patient's medical records. <Maria A Henao NP - Last Filed: 08/04/21 02:09> Lab Data Lab results reviewed: Yes I reviewed the patient's lab results. <Maria A Henao NP - Last Filed: 08/04/21 02:09> Result diagrams: : 08/04/21 00:42 08/04/21 00:42 <Maria A Henao NP - Last Filed: 08/04/21 02:09> Labs: Lab Results 08/04/21 08/04/21 08/04/21 Range/Units 00:42 00:42 00:42 WBC 6.3 (4.8-10.8) X10*3/uL RBC 4.08 L (4.20-5.50) X10*6/uL Hgb 13.1 (12.0-16.0) g/dl Hct 37.8 (37-47) % MCV 92.6 (80-98) fL MCH 32.1 (27.0-33.0) pg MCHC 34.7 (31.0-35.0) g/dl RDW 11.4 (11.0-16.0) % Plt Count 297 (160-400) X10*3/uL MPV 9.4 (9.4-12.3) fL Immature Gran % (Auto) 0.2 (0.0-0.4) % Neut % (Auto) 46.2 (45-73) % Lymph % (Auto) 44.3 H (20-40) % [place] % (Auto) 6.9 (2-11) % Eos % (Auto) 1.9 (0-4) % Baso % (Auto) 0.5 (0-2) % Lymph # (Auto) 2.8 (1.2-4.9) X10*3/uL [place] # (Auto) 0.4 (0.1-1.2) X10*3/uL Eos # (Auto) 0.1 (0.0-0.4) X10*3/uL Baso # (Auto) 0.0 (0.0-0.2) X10*3/uL Abs Immat Gran (auto) 0.01 (0.00-0.03) X10*3/uL Absolute Neuts (auto) 2.9 (2.0-8.3) X10*3/uL Absolute Nucleated RBC 0.000 (0.0-0.012) X10*3/uL Nucleated RBC % (auto) 0.0 (0.0-0.2) /100WBC ESR 16 (0-20) MM/HR Sodium 140 (135-145) mmol/L Potassium 3.9 (3.3-5.1) mmol/L Chloride 106 (96-108) mmol/L Carbon Dioxide 26 (22-29) mmol/L Anion Gap 12 (12-20) BUN 11 (9-16) mg/dL Creatinine 0.79 (0.5-1.4) mg/dL Estim Creat Clear Calc 71.1 Estimated GFR > 60 Random Glucose 102 (60-115) mg/dL Calcium 9.9 (8.4-10.2) mg/dL Magnesium 2.2 (1.6-2.6) mg/dL Total Bilirubin 0.3 (0.0-1.0) mg/dL Direct Bilirubin < 0.2 (0.0-0.5) mg/dL AST 22 (5-31) U/L ALT 44 H (0-31) U/L Alkaline Phosphatase 75 (39-117) U/L Total Creatine Kinase 87 (26-140) U/L C-Reactive Protein 0.28 (< or = 0.50) mg/dL Total Protein 7.1 (6.5-8.0) g/dL Albumin 4.2 (3.5-5.0) g/dL <Maria A Henao NP - Last Filed: 08/04/21 02:09> Lab Results 08/04/21 08/04/21 08/04/21 Range/Units 00:42 00:42 00:42 WBC 6.3 (4.8-10.8) X10*3/uL RBC 4.08 L (4.20-5.50) X10*6/uL Hgb 13.1 (12.0-16.0) g/dl Hct 37.8 (37-47) % MCV 92.6 (80-98) fL MCH 32.1 (27.0-33.0) pg MCHC 34.7 (31.0-35.0) g/dl RDW 11.4 (11.0-16.0) % Plt Count 297 (160-400) X10*3/uL MPV 9.4 (9.4-12.3) fL Immature Gran % (Auto) 0.2 (0.0-0.4) % Neut % (Auto) 46.2 (45-73) % Lymph % (Auto) 44.3 H (20-40) % [place] % (Auto) 6.9 (2-11) % Eos % (Auto) 1.9 (0-4) % Baso % (Auto) 0.5 (0-2) % Lymph # (Auto) 2.8 (1.2-4.9) X10*3/uL [place] # (Auto) 0.4 (0.1-1.2) X10*3/uL Eos # (Auto) 0.1 (0.0-0.4) X10*3/uL Baso # (Auto) 0.0 (0.0-0.2) X10*3/uL Abs Immat Gran (auto) 0.01 (0.00-0.03) X10*3/uL Absolute Neuts (auto) 2.9 (2.0-8.3) X10*3/uL Absolute Nucleated RBC 0.000 (0.0-0.012) X10*3/uL Nucleated RBC % (auto) 0.0 (0.0-0.2) /100WBC ESR 16 (0-20) MM/HR Sodium 140 (135-145) mmol/L Potassium 3.9 (3.3-5.1) mmol/L Chloride 106 (96-108) mmol/L Carbon Dioxide 26 (22-29) mmol/L Anion Gap 12 (12-20) BUN 11 (9-16) mg/dL Creatinine 0.79 (0.5-1.4) mg/dL Estim Creat Clear Calc 71.1 Estimated GFR > 60 Random Glucose 102 (60-115) mg/dL Calcium 9.9 (8.4-10.2) mg/dL Magnesium 2.2 (1.6-2.6) mg/dL Total Bilirubin 0.3 (0.0-1.0) mg/dL Direct Bilirubin < 0.2 (0.0-0.5) mg/dL AST 22 (5-31) U/L ALT 44 H (0-31) U/L Alkaline Phosphatase 75 (39-117) U/L Total Creatine Kinase 87 (26-140) U/L C-Reactive Protein 0.28 (< or = 0.50) mg/dL Total Protein 7.1 (6.5-8.0) g/dL Albumin 4.2 (3.5-5.0) g/dL <Deann Parker MD - Last Filed: 08/04/21 03:25> Imaging Data Chest x-ray: Attestation: I personally reviewed and interpreted this imaging study as follows: <Maria A Henao NP - Last Filed: 08/04/21 02:09> Radiologist's impression: TECHNIQUE: 2 views of the chest were obtained. FINDINGS: Lung volumes are symmetric. No focal consolidation is seen. No evidence of pneumothorax, pleural effusion, or pulmonary edema. The cardiomediastinal contour is unremarkable. No acute osseous findings are seen. XR/XR chest 2V IMPRESSION: No acute findings. <Maria A Henao NP - Last Filed: 08/04/21 02:09> Venous US: Radiologist's impression: RIGHT: There is normal venous compression and respiratory variation and augmented flow. The visualized common femoral vein, superficial femoral vein, profunda femoral vein, popliteal vein, and the trifurcation region shows no evidence of deep venous thrombosis. There is no significant popliteal fossa cyst. LEFT: There is normal venous compression and respiratory variation and augmented flow. The visualized common femoral vein, superficial femoral vein, profunda femoral vein, popliteal vein, and the trifurcation region shows no evidence of deep venous thrombosis. There is no significant popliteal fossa cyst. If the patient's symptoms persist, followup ultrasound in 5 days 7 days might be of value to exclude proximal propagation from a non-visualized calf vein. US/US venous duplex LE BI IMPRESSION: No DVT demonstrated in the bilateral lower extremities. <Deann Parker MD - Last Filed: 08/04/21 03:25> Discharge Plan Discharge Clinical Impression: Polyarthralgia <Maria A Henao NP - Last Filed: 08/04/21 02:09> Patient Disposition: Home, Self-Care <Maria A Henao NP - Last Filed: 08/04/21 02:09> Instructions: Arthralgia (ED), Warm Compress or Soak (ED) <Maria A Henao NP - Last Filed: 08/04/21 02:09> Additional Instructions: Labs are normal Chest x-ray shows no acute finding Ultrasound negative for DVT Take Motrin or Tylenol as needed for pain or fever Follow-up with your primary care doctor for your chronic pain <Maria A Henao NP - Last Filed: 08/04/21 02:09> Prescriptions: New naproxen 500 mg tablet 500 mg PO BID PRN (Reason: pain) Qty: 20 RF: 0 cyclobenzaprine 10 mg tablet 10 mg PO TID PRN (Reason: muscle spasm) Qty: 10 RF: 0 lidocaine [Lidoderm] 5 % adhesive patch,medicated 1 patch topical DAILY Qty: 15 RF: 0 No Action ibuprofen 600 mg tablet 600 mg PO Q8H PRN (Reason: pain) Qty: 14 RF: 0 multivitamin Tablet 1 tab PO DAILY RF: 0 acetaminophen [Tylenol Extra Strength] 500 mg tablet 1,000 mg PO Q6H PRNRF: 0 Icy Hot (menthol) 16 % aerosol,spray topical RF: 0 diclofenac sodium [Voltaren] 1 % gel 2 g topical BID Qty: 100 RF: 2 <Maria A Henao NP - Last Filed: 08/04/21 02:09> Referrals: Po,Ag Saul MD [Primary Care Provider] - 2 days <Maria A Henao NP - Last Filed: 08/04/21 02:09>
--- NOTE | 2021-08-04 01:17 | PC.NURSE ---
PT WILL BE MOVED TO ED BED 10 REPORT GIVEN TO WILLIE HOLBROOK.
[2021-08-04 01:21] LABS: Alanine Aminotransferase 44 U/L (0-31); Albumin Level 4.2 g/dL (3.5-5.0); Alkaline Phosphatase 75 U/L (39-117); Anion Gap 12 (12-20); Aspartate Amino Transferase 22 U/L (5-31); Bilirubin Direct < 0.2 mg/dL (0.0-0.5); Bilirubin Total 0.3 mg/dL (0.0-1.0); Blood Urea Nitrogen 11 mg/dL (9-16); C Reactive Protein 0.28 mg/dL (< or = 0.50); Calcium 9.9 mg/dL (8.4-10.2); Carbon Dioxide 26 mmol/L (22-29); Chloride 106 mmol/L (96-108); Creatinine Clr Calc Pharmacy 71.1; Estimated Glomerular Filt Rate > 60; Glucose Random 102 mg/dL (60-115); Magnesium 2.2 mg/dL (1.6-2.6); Potassium 3.9 mmol/L (3.3-5.1); Sodium 140 mmol/L (135-145); Total Protein 7.1 g/dL (6.5-8.0)
[2021-08-04 01:27] LABS: Erythrocyte Sedimentation Rate 16 MM/HR (0-20)
== END 2021-08-04 03:39 | disposition home or self-care (01) ==
PROVIDERS: Nurse Practitioner Family; Emergency Provider Emergency Medicine; PCP Internal Medicine
DX: M25.561 Pain in right knee (principal); M25.562 Pain in left knee; R07.81 Pleurodynia; M79.662 Pain in left lower leg; M79.661 Pain in right lower leg
CPT/HCPCS: 36415; 71046; 80048; 80076; 82550; 83735; 85025; 85652; 86140; 93970; 99283; 99284

== ENCOUNTER 2021-08-05 15:42 | Outpatient (REF) | payer OTHER, SELFPAY ==
--- NOTE | ~2021-08-05 | XR_ITS ---
EXAMINATION: XR RIGHT FOOT XR LEFT FOOT CLINICAL INFORMATION: Bilateral foot pain. COMPARISON: None TECHNIQUE: 3 views each of both feet. FINDINGS: Right foot: Enthesopathy is noted at the site of the Achilles tendon to the calcaneus. Accessory ossicles are seen around the cuboid and navicular. Bony alignments are intact. The cortices are intact. The soft tissues are unremarkable. Left foot: Similar to the right side, enthesopathy is noted. The ossicles are also noted. The bony alignments are intact. The cortices are intact. The soft tissues are unremarkable. XR/XR foot LT 2V IMPRESSION: Enthesopathy at the insertional site of the Achilles tendon to the calcaneus seen bilaterally.
--- NOTE | ~2021-08-05 | XR_ITS ---
EXAMINATION: XR RIGHT FOOT XR LEFT FOOT CLINICAL INFORMATION: Bilateral foot pain. COMPARISON: None TECHNIQUE: 3 views each of both feet. FINDINGS: Right foot: Enthesopathy is noted at the site of the Achilles tendon to the calcaneus. Accessory ossicles are seen around the cuboid and navicular. Bony alignments are intact. The cortices are intact. The soft tissues are unremarkable. Left foot: Similar to the right side, enthesopathy is noted. The ossicles are also noted. The bony alignments are intact. The cortices are intact. The soft tissues are unremarkable. XR/XR foot RT 2V IMPRESSION: Enthesopathy at the insertional site of the Achilles tendon to the calcaneus seen bilaterally.
== END 2021-08-05 15:43 | disposition home or self-care (01) ==
LOC: HO.XRAY 15:42
PROVIDERS: PCP Internal Medicine; Visit Provider Nurse Practitioner Family
DX: M79.671 Pain in right foot (principal); M79.672 Pain in left foot; G89.29 Other chronic pain
CPT/HCPCS: 73620

== ENCOUNTER → 2021-09-13 13:51 | Outpatient (BNVA) | payer OTHER, SELFPAY | PROVIDERS: PCP Internal Medicine; Visit Provider Physician Assistant | DX: M76.61 Achilles tendinitis, right leg (principal); M76.62 Achilles tendinitis, left leg | CPT/HCPCS: 99202 ==

== ENCOUNTER 2021-09-27 16:20 | Outpatient (REF) | payer OTHER, SELFPAY ==
--- NOTE | ~2021-09-27 | MM_ITS ---
EXAMINATION: MM SCREENING DIGITAL BREAST TOMOSYNTHESIS, BILATERAL CLINICAL INFORMATION: Screening. Asymptomatic. The lifetime risk of breast cancer based on the Tyrer-Cuzick Model is 7%. COMPARISON: Mammography: 07/07/2020, 01/22/2019, 05/31/2017 TECHNIQUE: Digital breast tomosynthesis is performed in both the craniocaudal and mediolateral oblique views along with computer-aided detection (CAD). Synthesized 2D images are generated from the tomosynthesis. FINDINGS: There are scattered areas of fibroglandular density (ACR BI-RADS breast composition Category b). There are no significant masses, abnormal calcifications, or other abnormalities. Parenchymal pattern is similar to prior studies. Again, there is a biopsy clip marker anterior lower inner left breast with adjacent stable circumscribed nodule. MM/MM tomosynthesis screening BI IMPRESSION: No mammographic evidence of malignancy. ASSESSMENT: BI-RADS 2: Benign RECOMMENDATION: Routine annual mammography screening. This patient's information was entered into a reminder system with a target due date for their next mammogram.
== END 2021-09-27 16:21 | disposition home or self-care (01) ==
LOC: HO.MAMMO 16:20
PROVIDERS: PCP Internal Medicine; Visit Provider Obstetrics & Gynecology
DX: Z12.31 Encounter for screening mammogram for malignant neoplasm of breast (principal)
CPT/HCPCS: 77063; 77067

== ENCOUNTER 2021-09-29 16:22 | Outpatient (REF) | payer OTHER, SELFPAY ==
[2021-09-29 18:30] LABS: Free T4 (Free Thyroxine) 0.97 ng/dL (0.71-1.85); Thyroid Stimulating Hormone 0.14 uIU/mL (0.32-4.0)
[2021-10-01 04:12] LABS: Triiodothyronine T3 Total 89 ng/dL (76-181)
== END 2021-09-29 16:23 | disposition home or self-care (01) ==
LOC: HO.LAB 16:22
PROVIDERS: PCP Internal Medicine; Visit Provider Internal Medicine
DX: E05.00 Thyrotoxicosis with diffuse goiter without thyrotoxic crisis or storm (principal)
CPT/HCPCS: 36415; 84439; 84443; 84480

== ENCOUNTER 2021-11-05 15:46 | Outpatient (REF) | payer OTHER, SELFPAY ==
--- NOTE | ~2021-11-05 | US_ITS ---
EXAMINATION: US THYROID CLINICAL INFORMATION: Thyrotoxicosis, unspecified without thyrotoxic crisis or storm. COMPARISON: Ultrasound soft tissue head/neck thyroid dated 07/24/2019 and 05/03/2018. CT soft tissue neck 09/18/2017. TECHNIQUE: Linear transducer grayscale and color Doppler examination with attention to the region of the thyroid. FINDINGS: SIZE: Measurements of the thyroid lobes and nodules are given in sagittal, anteroposterior and transverse dimensions respectively. Right Thyroid Lobe: 5.8 x 1.8 x 1.9 cm, volume 10.3 mL. Previously 5.4 x 1.7 x 1.4 cm, volume 6.7 mL. Parenchyma: The gland echotexture is homogeneous. Thyroid vascularity is slightly increased. Left Thyroid Lobe: 4.6 x 1.3 x 1.5 cm, volume 4.7 mL. Previously 5.2 x 1.6 x 1.4 cm, volume 6.1 mL. Parenchyma: The gland echotexture is homogeneous. Thyroid vascularity is slightly increased. Isthmus: 0.3 cm in maximum AP dimension. Previously 0.3 cm. No focal thyroid nodule is seen. NODES: No lymphadenopathy is seen in the tissue surrounding the thyroid gland. US/US thyroid IMPRESSION: Slightly hypervascular thyroid gland. The right lobe is increased and upper normal in size. No focal nodule seen. ACR TI-RADS RECOMMENDATION REFERENCE: Ultrasound-guided fine-needle aspiration, followup ultrasound, no further follow up. * TR1 (0 point) and TR 2 (2 points): No FNA or follow up * TR3 (3 points): FNA if more than or equal to 2.5 cm in maximum dimension, followup ultrasound in 1, 3 and 5 years if 1.5 to 2.4 cm in maximum dimension. * TR4 (4-6 points): FNA if more than or equal to 1.5 cm in maximum dimension, followup ultrasound in 1, 2, 3 and 5 years if 1 to 1.4 cm in maximum dimension. * TR5 (more than or equal to 7 points): FNA if more than or equal to 1 cm in maximum dimension, followup ultrasound every year for 5 years if 0.5 to 0.9 cm in maximum dimension. * TR3, TR4 or TR5 nodules that are below the size threshold for follow up receive no follow up.
== END 2021-11-05 15:47 | disposition home or self-care (01) ==
LOC: HO.US 15:46
PROVIDERS: Visit Provider Internal Medicine
DX: E05.90 Thyrotoxicosis, unspecified without thyrotoxic crisis or storm (principal)
CPT/HCPCS: 76536

== ENCOUNTER → 2021-11-10 10:26 | Outpatient (REF) | payer OTHER, SELFPAY ==
--- NOTE | ~2021-11-10 | NM_ITS ---
EXAMINATION: NM THYROID UPTAKE AND SCAN CLINICAL INFORMATION: Thyrotoxicosis. COMPARISON: Ultrasound thyroid 11/06/2021. TECHNIQUE: Following the oral administration of 270 microcuries of I-123 sodium iodide, thyroid uptake was performed and expressed as a percentage of the administrated dose. Gamma scintillation camera images of the thyroid in the anterior and right and left anterior oblique views were obtained using a pinhole collimator following the administration of 10 mCi Tc-99m pertechnetate. FINDINGS: The uptake is 9.53% at 4 hours and 26.79% at 24 hours. On thyroid imaging there is homogeneous isotope uptake seen throughout both lobes without any focal defect. However, there is increased focal activity seen in the mid to lower pole right thyroid lobe suggestive of hyperthyroid nodule. NM/NM thyroid w uptake IMPRESSION: Suspect small hyperthyroid nodule mid to lower pole right lobe. Slightly elevated 24 hour radioiodine uptake measuring 26.79%.
== END ==
LOC: HO.NUCMED 10:26
PROVIDERS: Visit Provider Internal Medicine
DX: E05.90 Thyrotoxicosis, unspecified without thyrotoxic crisis or storm (principal)
CPT/HCPCS: 78014; A9512; A9516

== ENCOUNTER 2021-11-24 14:00 | Outpatient (REF) | payer OTHER, SELFPAY ==
[2021-11-24 16:33] LABS: Free T4 (Free Thyroxine) 0.88 ng/dL (0.71-1.85); Thyroid Stimulating Hormone 0.49 uIU/mL (0.32-4.0); Vitamin D 25-OH Total 49.5 ng/mL (>30)
[2021-11-26 03:27] LABS: Triiodothyronine T3 Total 107 ng/dL (76-181)
[2021-11-26 18:32] LABS: Thyroglobulin Antibodies <1 IU/mL (< or = 1); Thyroid Peroxidase Antibodies 1 IU/mL (<9)
[2021-11-30 09:51] LABS: Thyrotropin Receptor Antibody <1.00 IU/L (<=2.00)
[2021-12-02 15:46] LABS: Thyroid Stimulating Immunoglob <89 % baseline (<140)
== END 2021-11-24 14:01 | disposition home or self-care (01) ==
LOC: HO.LAB 14:00
PROVIDERS: PCP Internal Medicine; Visit Provider Internal Medicine
DX: E05.90 Thyrotoxicosis, unspecified without thyrotoxic crisis or storm (principal); E55.9 Vitamin D deficiency, unspecified; Z79.899 Other long term (current) drug therapy
CPT/HCPCS: 36415; 82306; 83520; 84439; 84443; 84445; 84480; 86376; 86800; 99212

== ENCOUNTER 2022-01-26 14:12 | Outpatient (REF) | payer OTHER, SELFPAY ==
[2022-01-26 14:30] LABS: MANUAL DIFF FLAG NO
[2022-01-26 15:01] LABS: Basophils Percent Auto 0.4 % (0-2); Eosinophils Absolute Auto 0.1 X10*3/uL (0.0-0.4); Eosinophils Percent Auto 1.6 % (0-4); Hematocrit 41.4 % (37.0-47.0); Lymphocytes Absolute Auto 1.6 X10*3/uL (1.2-4.9); Lymphocytes Percent Auto 32.1 % (20-40); Mean Corpuscular HGB Conc 33.8 g/dl (31.0-35.0); Mean Corpuscular Hemoglobin 31.5 pg (27.0-33.0); Mean Corpuscular Volume 93.2 fL (80.0-98.0); Mean Platelet Volume 10.2 fL (9.4-12.3); Monocytes Absolute Auto 0.3 X10*3/uL (0.1-1.2); Neutrophils Percent Auto 59.9 % (45-73); Platelet Count 308 X10*3/uL (160-400); Red Blood Count 4.44 X10*6/uL (4.20-5.50); Red Cell Distribution Width 11.1 % (11.0-16.0)
[2022-01-26 15:13] LABS: Estimated Average Glucose 100 mg/dL; Hemoglobin A1c % 5.1 %
[2022-01-26 15:24] LABS: Alanine Aminotransferase 26 U/L (0-31); Albumin Level 4.2 g/dL (3.5-5.0); Alkaline Phosphatase 78 U/L (39-117); Anion Gap 12 (12-20); Aspartate Amino Transferase 20 U/L (5-31); Bilirubin Total 0.5 mg/dL (0.0-1.0); Blood Urea Nitrogen 14 mg/dL (9-16); Calcium 10.3 mg/dL (8.4-10.2); Carbon Dioxide 27 mmol/L (22-29); Chloride 106 mmol/L (96-108); Cholesterol 245 mg/dL; Estimated Glomerular Filt Rate > 60; Glucose Random 85 mg/dL (60-115); HDL Cholesterol 40 mg/dL; LDL Cholesterol Calculated 157 mg/dl; Potassium 4.4 mmol/L (3.3-5.1); Sodium 141 mmol/L (135-145); Total Protein 7.4 g/dL (6.5-8.0); Triglycerides 241 mg/dL
[2022-01-26 15:34] LABS: Appearance Urine CLEAR; Color Urine YELLOW; Glucose Urine UA NEG (NEG); Leukocyte Esterase Urine NEG (NEG); Nitrite Urine NEG (NEG); Specific Gravity - Urine 1.015 (1.005-1.025); Urine Blood 1+ (NEG); Urine Ketones NEG (NEG); Urine Protein NEG (NEG-TRACE)
[2022-01-26 15:41] LABS: Free T4 (Free Thyroxine) 1.04 ng/dL (0.71-1.85); Thyroid Stimulating Hormone 0.34 uIU/mL (0.32-4.0)
[2022-01-26 15:42] LABS: Bacteria Urine 1+ /LPF; RBC Urine 0-2 /HPF (0); Squamous Epithelial Cell Urine 1+ /LPF; WBC Urine 0 /HPF (0-4)
[2022-01-26 15:43] LABS: Erythrocyte Sedimentation Rate 16 MM/HR (0-20)
[2022-01-26 15:55] LABS: Folate 18.5 ng/mL (> or = 4.0); Vitamin B12 531 pg/mL (200-900)
[2022-01-27 06:02] LABS: Triiodothyronine T3 Free 3.5 pg/mL (2.3-4.2)
== END 2022-01-26 14:13 | disposition home or self-care (01) ==
LOC: HO.LAB 14:12
PROVIDERS: PCP Internal Medicine; Visit Provider Internal Medicine Endocrinology, Diabetes & Metabolism
DX: E05.90 Thyrotoxicosis, unspecified without thyrotoxic crisis or storm (principal); E78.5 Hyperlipidemia, unspecified; E78.00 Pure hypercholesterolemia, unspecified; K21.9 Gastro-esophageal reflux disease without esophagitis; M19.90 Unspecified osteoarthritis, unspecified site; M25.50 Pain in unspecified joint
CPT/HCPCS: 36415; 80053; 80061; 81001; 82607; 82746; 83036; 84439; 84443; 84481; 85025; 85652

== ENCOUNTER 2022-01-28 08:26 | Emergency (ER) | payer OTHER, SELFPAY ==
--- NOTE | 2022-01-28 | ECG_ITS ---
Test Reason : DIZZINESS Blood Pressure : / mmHG Vent. Rate : 070 BPM Atrial Rate : 070 BPM P-R Int : 136 ms QRS Dur : 090 ms QT Int : 410 ms P-R-T Axes : 032 056 066 degrees QTc Int : 442 ms Normal sinus rhythm Normal ECG When compared with ECG of 03-OCT-2017 19:33, Vent. rate has decreased BY 47 BPM Referred By: Generic ED Physician Electronically Signed By:Curtis Green
[2022-01-28 08:28] VITALS: BP 161/93; PULSE 71; RESP 16; TEMP 36.5; O2SAT 100; BMI 26.8
--- NOTE | 2022-01-28 08:42 | ED_ITS ---
HPI - Dizziness General Chief Complaint: General Medical Stated Complaint: HB Dizzy Time Seen by Provider: 01/28/22 08:41 Source: patient Mode of arrival: ambulatory Limitations: no limitations History of Present Illness MD elicited complaint: dizziness and lightheadedness Onset (ago): hour(s) (1+ now resolved) Timing: sudden onset Severity: mild Description: lightheadedness Context: other (states no context it just happened) History of similar symptoms: No Exacerbating factors: nothing Relieving factors: nothing Associated symptoms: denies other symptoms and other (notes she had thyroid labs this week unsure if they are abnormal ) Related Data Home Medications Medication Instructions Recorded Confirmed menthol 16 % topical spray (Icy spray TOPICAL 02/03/21 01/21/22 Hot (menthol)) multivitamin 1 tab PO DAILY 02/03/21 01/21/22 Previous Rx's Medication Instructions Recorded diclofenac sodium 1 % topical gel 2 g TOPICAL BID #100 g 08/05/21 acetaminophen 500 mg tablet 1,000 mg PO Q8H PRN 30 Days #180 08/19/21 (Tylenol Extra Strength) tab nystatin 100,000 unit/gram topical 1 appl TOPICAL BID #30 g 01/21/22 powder nystatin-triamcinolone 100,000 1 appl TOPICAL BID #30 g 01/21/22 unit/g-0.1 % topical cream Allergies Allergy/AdvReac Type Severity Reaction Status Date / Time No Known Allergies Allergy Verified 01/21/22 15:56 Review of Systems Review of Systems: Constitutional : No Weight loss, No Fever, No Chills, No Fatigue, No Malaise ENT/Mouth : No sore throat, No Rhinorrhea Eyes: No Eye Pain, No Swelling, No Redness Cardiovascular : No Chest Pain, No SOB, No Dyspnea on Exertion, No Orthopnea, No Edema, No Palpitations Respiratory : No Cough, No Sputum, No Wheezing Gastrointestinal : No Nausea, No Vomiting, No Diarrhea, No Constipation, No abdominal Pain, No Hematochezia, No Melena Genitourinary : No Dysuria, No Urinary Frequency, No Hematuria, Musculoskeletal : No joint pain, No Myalgias, No Joint Swelling Skin : No Skin Lesions, No rash Neuro : No Weakness, No Numbness, pos Dizziness, No Headache Psych : No Anxiety/Panic, No Depression, pos insomnia Heme/Lymph: No Bruising, No Bleeding,No Lymphadenopathy Endocrine : No Polyuria, No Polydipsia All other systems reviewed and are negative [facility] Past Medical History Attestation statement: The following information was validated with the patient. Medical History Dyslipidemia Genital HSV GERD (gastroesophageal reflux disease) Goiter Graves' disease in remission Hyperthyroidism Ulnar neuropathy Vitamin D deficiency Surgical History History of breast biopsy History of hysterectomy Family History Family History (Updated 01/21/22 @ 16:26 by Ag France MD) Father Hypertension Rheumatoid arthritis Prostate cancer Mother Stroke Rheumatoid arthritis Paternal Grandfather Prostate cancer Paternal Uncle Prostate cancer Paternal Aunt Colon cancer Brother Myocardial infarct Substance abuse Social History Social History Housing: House Alcohol intake: never Patient Tobacco Use Status: Never used Tobacco e-Cigarette/Vaping Use: Never Used Advance Directives: No Advance Directives Information Provided: No service: No Current occupational status: employed 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 Oriented X3. No acute distress. Eyes: Pupils equal, round and reactive to light. ENT: Pharynx normal. no mass felt at thyroid Neck: Normal inspection. Neck supple. CVS: Normal heart rate and rhythm. Pulses normal. Respiratory: No respiratory distress. Breath sounds normal. Abdomen: Soft and non-tender. Skin: Skin warm and dry. Normal skin color. Normal skin turgor. Extremities: No lower extremity edema. No calf ttp Neuro: Oriented X 3. No motor deficit. No sensory deficit. no drift, normal gait Course Course Course Narrative: negative workup. ortho VS negative MDM - Dizziness MDM Narrative Medical decision making narrative: 56 yo female with hx of hyperthyroidism though thyroid panel normals 01/26, arthritis, HLD here with c/o feeling lightheaded this AM. no CP/SOB, no hypoxia/tachycardia or signs of DVT - doubt PE. She is neurologically intact no headache normal gait doubt posterior stroke. She is anxious her thyroid is off at this time. Will obtain EKG, ortho VS. basic labs - reassured her that her panel looked good from 01/26. Dispo per results and findings. Lab Data Result diagrams: 01/28/22 09:35 01/28/22 09:36 Labs: Lab Results 01/28/22 01/28/22 01/28/22 Range/Units 09:35 09:36 09:36 WBC 4.8 (4.8-10.8) X10*3/uL RBC 4.19 L (4.20-5.50) X10*6/uL Hgb 13.3 (12.0-16.0) g/dl Hct 39.5 (37.0-47.0) % MCV 94.3 (80.0-98.0) fL MCH 31.7 (27.0-33.0) pg MCHC 33.7 (31.0-35.0) g/dl RDW 11.2 (11.0-16.0) % Plt Count 278 (160-400) X10*3/uL MPV 10.0 (9.4-12.3) fL Immature Gran % (Auto) 0.2 (0.0-0.4) % Neut % (Auto) 59.5 (45-73) % Lymph % (Auto) 31.5 (20-40) % [place] % (Auto) 6.9 (2-11) % Eos % (Auto) 1.5 (0-4) % Baso % (Auto) 0.4 (0-2) % Lymph # (Auto) 1.5 (1.2-4.9) X10*3/uL [place] # (Auto) 0.3 (0.1-1.2) X10*3/uL Eos # (Auto) 0.1 (0.0-0.4) X10*3/uL Baso # (Auto) 0.0 (0.0-0.2) X10*3/uL Abs Immat Gran (auto) 0.01 (0.00-0.03) X10*3/uL Absolute Neuts (auto) 2.9 (2.0-8.3) x10*3/uL Absolute Nucleated RBC 0.000 (0.0-0.012) X10*3/uL Nucleated RBC % (auto) 0.0 (0.0-0.2) /100WBC Sodium 140 (135-145) mmol/L Potassium 4.0 (3.3-5.1) mmol/L Chloride 105 (96-108) mmol/L Carbon Dioxide 28 (22-29) mmol/L Anion Gap 11 L (12-20) BUN 10 (9-16) mg/dL Creatinine 0.74 (0.5-1.4) mg/dL Estim Creat Clear Calc 74.6 Estimated GFR > 60 Random Glucose 97 (60-115) mg/dL Calcium 9.6 D (8.4-10.2) mg/dL Magnesium 2.1 (1.6-2.6) mg/dL Total Bilirubin 0.5 (0.0-1.0) mg/dL Direct Bilirubin < 0.2 (0.0-0.5) mg/dL AST 21 (5-31) U/L ALT 27 (0-31) U/L Alkaline Phosphatase 72 (39-117) U/L Troponin I High Sens < 3.5 (<3.5-17.0) ng/L Total Protein 7.1 (6.5-8.0) g/dL Albumin 4.0 (3.5-5.0) g/dL Urine Color Urine Appearance Urine pH (5.0-8.0) Ur Specific [place] (1.005-1.025) Urine Protein (NEG-TRACE) MG/DL Urine Glucose (UA) (NEG) MG/DL Urine Ketones (NEG) MG/DL Urine Blood (NEG) Urine Nitrite (NEG) Ur Leukocyte Esterase (NEG) 01/28/22 Range/Units 09:55 WBC (4.8-10.8) X10*3/uL RBC (4.20-5.50) X10*6/uL Hgb (12.0-16.0) g/dl Hct (37.0-47.0) % MCV (80.0-98.0) fL MCH (27.0-33.0) pg MCHC (31.0-35.0) g/dl RDW (11.0-16.0) % Plt Count (160-400) X10*3/uL MPV (9.4-12.3) fL Immature Gran % (Auto) (0.0-0.4) % Neut % (Auto) (45-73) % Lymph % (Auto) (20-40) % [place] % (Auto) (2-11) % Eos % (Auto) (0-4) % Baso % (Auto) (0-2) % Lymph # (Auto) (1.2-4.9) X10*3/uL [place] # (Auto) (0.1-1.2) X10*3/uL Eos # (Auto) (0.0-0.4) X10*3/uL Baso # (Auto) (0.0-0.2) X10*3/uL Abs Immat Gran (auto) (0.00-0.03) X10*3/uL Absolute Neuts (auto) (2.0-8.3) x10*3/uL Absolute Nucleated RBC (0.0-0.012) X10*3/uL Nucleated RBC % (auto) (0.0-0.2) /100WBC Sodium (135-145) mmol/L Potassium (3.3-5.1) mmol/L Chloride (96-108) mmol/L Carbon Dioxide (22-29) mmol/L Anion Gap (12-20) BUN (9-16) mg/dL Creatinine (0.5-1.4) mg/dL Estim Creat Clear Calc Estimated GFR Random Glucose (60-115) mg/dL Calcium (8.4-10.2) mg/dL Magnesium (1.6-2.6) mg/dL Total Bilirubin (0.0-1.0) mg/dL Direct Bilirubin (0.0-0.5) mg/dL AST (5-31) U/L ALT (0-31) U/L Alkaline Phosphatase (39-117) U/L Troponin I High Sens (<3.5-17.0) ng/L Total Protein (6.5-8.0) g/dL Albumin (3.5-5.0) g/dL Urine Color STRAW Urine Appearance CLEAR Urine pH 6.5 (5.0-8.0) Ur Specific [place] 1.015 (1.005-1.025) Urine Protein NEG (NEG-TRACE) MG/DL Urine Glucose (UA) NEG (NEG) MG/DL Urine Ketones NEG (NEG) MG/DL Urine Blood TRACE (NEG) Urine Nitrite NEG (NEG) Ur Leukocyte Esterase NEG (NEG) ECG Data Attestation: I personally reviewed and interpreted this ECG as follows: ECG interpretation date: 01/28/22 ECG interpretation time: 08:47 Interpretation: Rate: 70 Rhythm: NSR [place]: normal Normal P waves. Normal LAURA. Normal QRS complex. ST T wave : inverted V1-V2, no NADIR qTC: normal prior studies: no acute ischemia The study has been interpreted contemporaneously by me. Discharge Plan Discharge Clinical Impression: Light-headedness Patient Disposition: Home, Self-Care Instructions: Lightheadedness (ED) Additional Instructions: return to ED for any worsening symptoms or concerns Prescriptions: No Action acetaminophen [Tylenol Extra Strength] 500 mg tablet 1,000 mg PO Q8H PRN (Reason: fever or pain) 30 Days Qty: 180 0RF nystatin-triamcinolone 100,000-0.1 unit/g-% cream 1 appl topical BID Qty: 30 0RF nystatin 100,000 unit/gram powder 1 appl topical BID Qty: 30 0RF diclofenac sodium 1 % gel 2 g topical BID Qty: 100 2RF Rx Instructions: apply 2 gram to bilateral knees twice daily as needed multivitamin Tablet 1 tab PO DAILY 0RF Icy Hot (menthol) 16 % aerosol,spray topical 0RF Referrals: Po,Ag Saul MD [Primary Care Provider] - 2 days (if not better) Stand Alone Forms: Work/School Release
[2022-01-28 09:41] LABS: MANUAL DIFF FLAG NO
[2022-01-28 09:44] LABS: Basophils Percent Auto 0.4 % (0-2); Eosinophils Absolute Auto 0.1 X10*3/uL (0.0-0.4); Eosinophils Percent Auto 1.5 % (0-4); Hematocrit 39.5 % (37.0-47.0); Hemoglobin 13.3 g/dl (12.0-16.0); Imm Gran Abs Auto 0.01 X10*3/uL (0.00-0.03); Imm Gran Pct Auto 0.2 % (0.0-0.4); Lymphocytes Absolute Auto 1.5 X10*3/uL (1.2-4.9); Lymphocytes Percent Auto 31.5 % (20-40); Mean Corpuscular HGB Conc 33.7 g/dl (31.0-35.0); Mean Corpuscular Hemoglobin 31.7 pg (27.0-33.0); Mean Corpuscular Volume 94.3 fL (80.0-98.0); Monocytes Absolute Auto 0.3 X10*3/uL (0.1-1.2); Monocytes Percent Auto 6.9 % (2-11); Neutrophils Absolute Auto 2.9 x10*3/uL (2.0-8.3); Neutrophils Percent Auto 59.5 % (45-73); Platelet Count 278 X10*3/uL (160-400); Red Blood Count 4.19 X10*6/uL (4.20-5.50); Red Cell Distribution Width 11.2 % (11.0-16.0); White Blood Count 4.8 X10*3/uL (4.8-10.8)
[2022-01-28] MEDS: 0.9 % Sodium Chloride 1,000 ML 999 ML IV (09:48)
[2022-01-28 09:51] VITALS: BP 121/65; PULSE 67
[2022-01-28 09:52] VITALS: BP 125/68; PULSE 70
[2022-01-28 09:54] VITALS: BP 126/82; PULSE 77
[2022-01-28 10:01] LABS: Appearance Urine CLEAR; Color Urine STRAW; Glucose Urine UA NEG (NEG); Leukocyte Esterase Urine NEG (NEG); Nitrite Urine NEG (NEG); PH 6.5 (5.0-8.0); Specific Gravity - Urine 1.015 (1.005-1.025); UACC Culture Trigger NO; Urine Blood TRACE (NEG); Urine Ketones NEG (NEG); Urine Protein NEG (NEG-TRACE)
[2022-01-28 10:01] LABS: Alanine Aminotransferase 27 U/L (0-31); Alkaline Phosphatase 72 U/L (39-117); Anion Gap 11 (12-20); Aspartate Amino Transferase 21 U/L (5-31); Bilirubin Direct < 0.2 mg/dL (0.0-0.5); Bilirubin Total 0.5 mg/dL (0.0-1.0); Blood Urea Nitrogen 10 mg/dL (9-16); Calcium 9.6 mg/dL (8.4-10.2); Carbon Dioxide 28 mmol/L (22-29); Chloride 105 mmol/L (96-108); Creatinine Clr Calc Pharmacy 74.6; Estimated Glomerular Filt Rate > 60; Glucose Random 97 mg/dL (60-115); Magnesium 2.1 mg/dL (1.6-2.6); Sodium 140 mmol/L (135-145); Total Protein 7.1 g/dL (6.5-8.0)
[2022-01-28 10:04] LABS: Troponin-I High Sensitivity < 3.5 ng/L (<3.5-17.0)
[2022-01-28 10:25] LABS: Amorphous Sediment Urine 1+ /LPF; Squamous Epithelial Cell Urine TRACE /LPF; WBC Urine 0 /HPF (0-4)
== END 2022-01-28 10:50 | disposition home or self-care (01) ==
PROVIDERS: Emergency Provider Emergency Medicine; PCP Internal Medicine
DX: R42 Dizziness and giddiness (principal); Z79.899 Other long term (current) drug therapy
CPT/HCPCS: 36415; 80048; 80076; 81001; 81003; 83735; 84484; 85025; 93005; 96360; 99283; 99284

== ENCOUNTER 2022-02-14 11:35 | Outpatient (REF) | payer OTHER, SELFPAY ==
[2022-02-14 12:11] LABS: Hemoglobin 13.4 g/dl (12.0-16.0); Mean Corpuscular HGB Conc 33.5 g/dl (31.0-35.0); Mean Corpuscular Hemoglobin 31.7 pg (27.0-33.0); Mean Corpuscular Volume 94.6 fL (80.0-98.0); Mean Platelet Volume 9.8 fL (9.4-12.3); Platelet Count 321 X10*3/uL (160-400); Red Blood Count 4.23 X10*6/uL (4.20-5.50); Red Cell Distribution Width 11.2 % (11.0-16.0); White Blood Count 4.9 X10*3/uL (4.8-10.8)
[2022-02-14 12:28] LABS: Anion Gap 11 (12-20); Blood Urea Nitrogen 13 mg/dL (9-16); Calcium 9.9 mg/dL (8.4-10.2); Carbon Dioxide 28 mmol/L (22-29); Chloride 103 mmol/L (96-108); Estimated Glomerular Filt Rate > 60; Glucose Random 97 mg/dL (60-115); Potassium 4.4 mmol/L (3.3-5.1); Sodium 138 mmol/L (135-145)
[2022-02-14 12:45] LABS: Thyroid Stimulating Hormone 0.65 uIU/mL (0.32-4.0)
[2022-02-14 12:47] LABS: Free T4 (Free Thyroxine) 0.91 ng/dL (0.71-1.85)
[2022-02-16 08:26] LABS: Triiodothyronine T3 Total 112 ng/dL (76-181)
== END 2022-02-14 11:36 | disposition home or self-care (01) ==
LOC: HO.LAB 11:35
PROVIDERS: Absent Provider Internal Medicine; PCP Internal Medicine; Visit Provider Nurse Practitioner Family
DX: E05.90 Thyrotoxicosis, unspecified without thyrotoxic crisis or storm (principal); E05.00 Thyrotoxicosis with diffuse goiter without thyrotoxic crisis or storm; R42 Dizziness and giddiness; R00.2 Palpitations
CPT/HCPCS: 36415; 80048; 84439; 84443; 84480; 85027

== ENCOUNTER 2022-02-23 09:39 | Emergency (ER) | payer OTHER, SELFPAY ==
--- NOTE | 2022-02-23 | ECG_ITS ---
Test Reason : cp Blood Pressure : / mmHG Vent. Rate : 064 BPM Atrial Rate : 064 BPM P-R Int : 116 ms QRS Dur : 090 ms QT Int : 404 ms P-R-T Axes : 024 038 057 degrees QTc Int : 416 ms Normal sinus rhythm Low voltage QRS Borderline ECG When compared with ECG of 28-JAN-2022 08:39, No significant change was found Referred By: Generic ED Physician Electronically Signed By:PRIYANKA MCCLELLAND MD
--- NOTE | ~2022-02-23 | XR_ITS ---
EXAMINATION: XR CHEST CLINICAL INFORMATION: Chest pain COMPARISON: August 04, 2021 TECHNIQUE: AP portable view of the chest was obtained. FINDINGS: No significant abnormality is noted involving the heart, lungs, mediastinum, bony thorax or soft tissues. XR/XR chest 1V IMPRESSION: No acute disease.
[2022-02-23 09:53] VITALS: BP 131/73; PULSE 64; RESP 16; TEMP 36.1; O2SAT 100; BMI 27.0
[2022-02-23 10:00] VITALS: BP 130/74; PULSE 75; RESP 16; O2SAT 99
[2022-02-23 10:16] LABS: MANUAL DIFF FLAG NO
[2022-02-23 10:17] LABS: Basophils Percent Auto 0.6 % (0-2); Eosinophils Absolute Auto 0.1 X10*3/uL (0.0-0.4); Eosinophils Percent Auto 1.7 % (0-4); Hematocrit 39.3 % (37.0-47.0); Hemoglobin 13.3 g/dl (12.0-16.0); Imm Gran Abs Auto 0.01 X10*3/uL (0.00-0.03); Imm Gran Pct Auto 0.2 % (0.0-0.4); Lymphocytes Absolute Auto 1.9 X10*3/uL (1.2-4.9); Lymphocytes Percent Auto 36.1 % (20-40); Mean Corpuscular HGB Conc 33.8 g/dl (31.0-35.0); Mean Corpuscular Hemoglobin 31.4 pg (27.0-33.0); Mean Corpuscular Volume 92.9 fL (80.0-98.0); Mean Platelet Volume 9.7 fL (9.4-12.3); Monocytes Absolute Auto 0.5 X10*3/uL (0.1-1.2); Monocytes Percent Auto 9.4 % (2-11); Neutrophils Absolute Auto 2.7 x10*3/uL (2.0-8.3); Platelet Count 313 X10*3/uL (160-400); Red Blood Count 4.23 X10*6/uL (4.20-5.50); Red Cell Distribution Width 11.5 % (11.0-16.0); White Blood Count 5.2 X10*3/uL (4.8-10.8)
--- NOTE | 2022-02-23 10:24 | ED.CHESTPAIN ---
HPI - Chest Pain General Chief Complaint: Chest Pain Stated Complaint: sharp chest pain Time Seen by Provider: 02/23/22 10:23 Source: patient Mode of arrival: ambulatory Limitations: no limitations History of Present Illness HPI narrative: 56-year-old female came in for evaluation of mid chest pain. Pain started since yesterday, described as sharp pain to the mid chest that variably last for minutes, pain is localized with no radiation, pain is not exertional related, no relieving factor, no aggravating factor, patient declined any recent chest trauma or heavy lifting, pain is gone now. No lower extremities swelling, no tenderness, patient had recent 2 hour car trip. No smoking history, no history of hypertension, no history of diabetes. Related Data Home Medications Medication Instructions Recorded Confirmed menthol 16 % topical spray (Icy spray TOPICAL 02/03/21 02/14/22 Hot (menthol)) multivitamin 1 tab PO DAILY 02/03/21 02/14/22 Previous Rx's Medication Instructions Recorded acetaminophen 500 mg tablet 1,000 mg PO Q8H PRN 30 Days #180 08/19/21 (Tylenol Extra Strength) tab nystatin 100,000 unit/gram topical 1 appl TOPICAL BID #30 g 01/21/22 powder nystatin-triamcinolone 100,000 1 appl TOPICAL BID #30 g 01/21/22 unit/g-0.1 % topical cream meclizine 25 mg tablet 25 mg PO DAILY PRN #20 tab 02/14/22 Allergies Allergy/AdvReac Type Severity Reaction Status Date / Time No Known Allergies Allergy Verified 02/14/22 10:58 Review of Systems Review of Systems: All other systems are reviewed and are negative Constitutional: Reports as per HPI and Reports no additional constitutional complaints Eyes: Reports as per HPI and Reports no additional eye complaints Reports system reviewed and no additional complaints, except as documented Cardiovascular: Reports as per HPI and Reports no additional cardiovascular complaints Respiratory: Reports as per HPI and Reports no additional respiratory complaints Gastrointestinal: Reports as per HPI and Reports no additional gastrointestinal complaints Genitourinary: Reports no additional female genitourinary complaints Musculoskeletal: Reports no additional musculoskeletal complaints Skin/Breast: Reports system reviewed and no additional complaints, except as docu Psychiatric: Reports no additional psychiatric complaints Endocrine: Reports no additional endocrine complaints Hematologic/Lymphatic: Reports no additional hematologic/lymphatic complaints Allergic/Immunologic: Reports no additional allergic/immunologic complaints Reports system reviewed and no additional complaints, except as documented and Reports Abnormal speech present [facility] Past Medical History Medical History Dyslipidemia Genital HSV GERD (gastroesophageal reflux disease) Goiter Graves' disease in remission Hyperthyroidism Ulnar neuropathy Vitamin D deficiency Surgical History History of breast biopsy History of hysterectomy Family History Family History Father Hypertension Rheumatoid arthritis Prostate cancer Mother Stroke Rheumatoid arthritis Paternal Grandfather Prostate cancer Paternal Uncle Prostate cancer Paternal Aunt Colon cancer Brother Myocardial infarct Substance abuse Social History Social History Housing: House Alcohol intake: never Patient Tobacco Use Status: Never used Tobacco e-Cigarette/Vaping Use: Never Used Use of substances other than those prescribed or required for medical reasons: No Advance Directives: No Patient : No service: No Current occupational status: employed 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 Blood pressure normal. Heart rate normal. Respiration rate normal. Temperature normal. Oxygen saturation normal. Appearance: Alert. Oriented X3. No acute distress. Head: Normal external exam. Normocephalic. Atraumatic. No Ibanez signs noted. No raccoon eyes noted Eyes: PERRLA. EOMI. Conjunctiva and sclera normal. Eyelids normal. ENT: TM's Normal. Pharynx normal. Uvula midline. Moist mucous membranes. No trismus noted. No drooling noted. No muffled voice noted. Neck: Normal inspection. Neck supple. FROM. No adenopathy. Thyroid Normal. No meningeal signs. No neck mass noted. CVS: Normal heart rate and rhythm. Heart sound normal. No murmurs noted. Pulses normal throughout. Respiratory: No respiratory distress. Painless inspiration. Breath sounds normal. No wheezes/rales/rhonchi noted. Chest nontender. No accessory muscle usage noted or decreased air movement noted. Abdomen: Soft and nontender. Bowel sounds normal in all 4 quadrants. No distention noted. No organomegaly noted. No visible injury noted. Back: No CVA tenderness. Full range of motion noted. Skin: Skin warm and dry. Normal skin color. Normal skin turgor. No rashes/lesions/lacerations noted. Extremities: No lower extremity edema. Extremities exhibit normal range of motion. Extremities nontender. Neuro: Oriented X 3. Cranial nerve exam: II-XII are grossly intact No motor deficit. No sensory deficit. Reflexes normal. Course Course Course Narrative: Assessment and plan. 56 years old female came in for evaluation of chest pain since yesterday, HEART score is 1, patient at low risk for PE with a negative D-dimer. Unremarkable chest x-ray and EKG. Will reassure and discharge the patient to follow-up with PCP. [facility] - Chest Pain Lab Data Attestation: I reviewed the patient's lab results. Result diagrams: 02/23/22 10:08 02/23/22 10:08 Labs: Lab Results 02/23/22 02/23/22 02/23/22 Range/Units 10:08 10:08 10:08 WBC 5.2 (4.8-10.8) X10*3/uL RBC 4.23 (4.20-5.50) X10*6/uL Hgb 13.3 (12.0-16.0) g/dl Hct 39.3 (37.0-47.0) % MCV 92.9 (80.0-98.0) fL MCH 31.4 (27.0-33.0) pg MCHC 33.8 (31.0-35.0) g/dl RDW 11.5 (11.0-16.0) % Plt Count 313 (160-400) X10*3/uL MPV 9.7 (9.4-12.3) fL Immature Gran % (Auto) 0.2 (0.0-0.4) % Neut % (Auto) 52.0 (45-73) % Lymph % (Auto) 36.1 (20-40) % [place] % (Auto) 9.4 (2-11) % Eos % (Auto) 1.7 (0-4) % Baso % (Auto) 0.6 (0-2) % Lymph # (Auto) 1.9 (1.2-4.9) X10*3/uL [place] # (Auto) 0.5 (0.1-1.2) X10*3/uL Eos # (Auto) 0.1 (0.0-0.4) X10*3/uL Baso # (Auto) 0.0 (0.0-0.2) X10*3/uL Abs Immat Gran (auto) 0.01 (0.00-0.03) X10*3/uL Absolute Neuts (auto) 2.7 (2.0-8.3) x10*3/uL Absolute Nucleated RBC 0.000 (0.0-0.012) X10*3/uL Nucleated RBC % (auto) 0.0 (0.0-0.2) /100WBC D-Dimer High Sensitivty NG/ML Sodium 140 (135-145) mmol/L Potassium 4.2 (3.3-5.1) mmol/L Chloride 104 (96-108) mmol/L Carbon Dioxide 27 (22-29) mmol/L Anion Gap 13 (12-20) BUN 11 (9-16) mg/dL Creatinine 0.76 (0.5-1.4) mg/dL Estim Creat Clear Calc 72.9 Estimated GFR > 60 Random Glucose 96 (60-115) mg/dL Calcium 10.0 (8.4-10.2) mg/dL Troponin I High Sens < 3.5 (<3.5-17.0) ng/L 02/23/22 Range/Units 10:57 WBC (4.8-10.8) X10*3/uL RBC (4.20-5.50) X10*6/uL Hgb (12.0-16.0) g/dl Hct (37.0-47.0) % MCV (80.0-98.0) fL MCH (27.0-33.0) pg MCHC (31.0-35.0) g/dl RDW (11.0-16.0) % Plt Count (160-400) X10*3/uL MPV (9.4-12.3) fL Immature Gran % (Auto) (0.0-0.4) % Neut % (Auto) (45-73) % Lymph % (Auto) (20-40) % [place] % (Auto) (2-11) % Eos % (Auto) (0-4) % Baso % (Auto) (0-2) % Lymph # (Auto) (1.2-4.9) X10*3/uL [place] # (Auto) (0.1-1.2) X10*3/uL Eos # (Auto) (0.0-0.4) X10*3/uL Baso # (Auto) (0.0-0.2) X10*3/uL Abs Immat Gran (auto) (0.00-0.03) X10*3/uL Absolute Neuts (auto) (2.0-8.3) x10*3/uL Absolute Nucleated RBC (0.0-0.012) X10*3/uL Nucleated RBC % (auto) (0.0-0.2) /100WBC D-Dimer High Sensitivty < 150 NG/ML Sodium (135-145) mmol/L Potassium (3.3-5.1) mmol/L Chloride (96-108) mmol/L Carbon Dioxide (22-29) mmol/L Anion Gap (12-20) BUN (9-16) mg/dL Creatinine (0.5-1.4) mg/dL Estim Creat Clear Calc Estimated GFR Random Glucose (60-115) mg/dL Calcium (8.4-10.2) mg/dL Troponin I High Sens (<3.5-17.0) ng/L Imaging Data Chest x-ray: Attestation: I personally reviewed and interpreted this imaging study as follows: Radiologist's impression: No acute pathology. ECG Data ECG #1: Attestation: I personally reviewed and interpreted this ECG as follows: Interpretation: Normal sinus rhythm at 64 beats per minutes, normal axis deviation, no ST-T changes. Discharge Plan Discharge Clinical Impression: Atypical chest pain Patient Disposition: Home, Self-Care Instructions: Chest Pain (ED) Prescriptions: No Action acetaminophen [Tylenol Extra Strength] 500 mg tablet 1,000 mg PO Q8H PRN (Reason: fever or pain) 30 Days Qty: 180 0RF nystatin-triamcinolone 100,000-0.1 unit/g-% cream 1 appl topical BID Qty: 30 0RF nystatin 100,000 unit/gram powder 1 appl topical BID Qty: 30 0RF meclizine 25 mg tablet 25 mg PO DAILY PRN (Reason: dizziness) Qty: 20 0RF multivitamin Tablet 1 tab PO DAILY 0RF Icy Hot (menthol) 16 % aerosol,spray topical 0RF Referrals: Po,Ag Saul MD [Primary Care Provider] -
[2022-02-23 10:35] LABS: Anion Gap 13 (12-20); Blood Urea Nitrogen 11 mg/dL (9-16); Carbon Dioxide 27 mmol/L (22-29); Chloride 104 mmol/L (96-108); Creatinine Clr Calc Pharmacy 72.9; Estimated Glomerular Filt Rate > 60; Glucose Random 96 mg/dL (60-115); Potassium 4.2 mmol/L (3.3-5.1); Sodium 140 mmol/L (135-145)
[2022-02-23 10:51] LABS: Troponin-I High Sensitivity < 3.5 ng/L (<3.5-17.0)
[2022-02-23 11:25] LABS: D Dimer High Sensitivity < 150 NG/ML
[2022-02-23 11:56] VITALS: BP 131/72; PULSE 65; RESP 14; O2SAT 100
== END 2022-02-23 12:34 | disposition home or self-care (01) ==
PROVIDERS: Emergency Provider Emergency Medicine; PCP Internal Medicine
DX: R07.89 Other chest pain (principal); Z79.899 Other long term (current) drug therapy
CPT/HCPCS: 36415; 71045; 80048; 84484; 85025; 85379; 93005; 99283; 99285

== ENCOUNTER 2022-03-06 10:54 | Emergency (ER) | payer OTHER, SELFPAY ==
--- NOTE | ~2022-03-06 | XR_ITS ---
EXAMINATION: XR CHEST CLINICAL INFORMATION: Cough COMPARISON: Prior x-ray February 23, 2022 TECHNIQUE: Frontal view of the chest was obtained. FINDINGS: Minimal linear opacity at the left base similar to prior Cardiomediastinal silhouette normal. Bone and soft tissues unremarkable discoid atelectasis XR/XR chest 1V IMPRESSION: No change. No acute disease. Stable atelectasis versus scarring left base.
[2022-03-06 10:58] VITALS: BP 147/93; PULSE 114; RESP 18; TEMP 37.2; O2SAT 98; BMI 27.0
--- NOTE | 2022-03-06 11:17 | ED_ITS ---
HPI - General Adult General Chief complaint: Upper Respiratory Symptoms Stated complaint: Cough/Chest pain Time Seen by Provider: 03/06/22 11:17 Source: patient Mode of arrival: ambulatory Limitations: no limitations History of Present Illness HPI narrative: Patient is a 56 year old female presenting to the emergency department today with a productive cough and chest wall pain secondary to coughing. Patient states that for the last week she has had a cough that consistently produces yellow phlegm and chest wall pain after coughing. Patient denies any current dizziness, lightheadedness, abdominal pain, nausea, vomiting, fever, chills, blurry vision, double vision, loss of vision, chest pain, difficulty breathing, shortness of breath, back pain, night sweats, pain with urination, increased urinary frequency, increased urinary urgency, blood in her urine or stool, syncope or a near syncopal episode, recent trauma or falls, bowel incontinence, bladder incontinence, bowel retention, bladder retention, or any other complaints at this time. Onset (ago): day(s) (6) Severity: mild Severity scale (1-10): 3 Relieving factors: none Exacerbating factors: none Associated symptoms: cough Treatments prior to arrival: none Related Data Home Medications Medication Instructions Recorded Confirmed menthol 16 % topical spray (Icy spray TOPICAL 02/03/21 03/03/22 Hot (menthol)) multivitamin 1 tab PO DAILY 02/03/21 03/03/22 Previous Rx's Medication Instructions Recorded acetaminophen 500 mg tablet 1,000 mg PO Q8H PRN 30 Days #180 08/19/21 (Tylenol Extra Strength) tab nystatin 100,000 unit/gram topical 1 appl TOPICAL BID #30 g 01/21/22 powder nystatin-triamcinolone 100,000 1 appl TOPICAL BID #30 g 01/21/22 unit/g-0.1 % topical cream meclizine 25 mg tablet 25 mg PO DAILY PRN #20 tab 02/14/22 doxycycline hyclate 100 mg tablet 100 mg PO BID 5 Days #10 tab 03/06/22 Allergies Allergy/AdvReac Type Severity Reaction Status Date / Time No Known Allergies Allergy Verified 03/03/22 12:27 Review of Systems Constitutional: Constitutional: Reports no additional constitutional complaints, Denies chills, Denies fever(s) and Denies night sweats Eyes: Eyes: Reports no additional eye complaints, Denies blurry vision, Denies change in vision, Denies diplopia, Denies eye discharge, Denies loss of vision and Denies eye pain ENT: Denies dizziness Cardiovascular: Cardiovascular: Reports no additional cardiovascular complaints, Denies chest pain, Denies lightheadedness, Denies Loss of Consciousness and Denies dyspnea Respiratory: Respiratory: Reports no additional respiratory complaints, Reports cough and Denies dyspnea Gastrointestinal: Gastrointestinal: Reports no additional gastrointestinal complaints, Denies abdominal pain, Denies melena, Denies hematochezia, Denies change in bowel habits and Denies change in stool character Genitourinary: Genitourinary: Denies hematuria, Denies urinary frequency, Denies dysuria, Denies urinary incontinence, Denies urinary hesitancy and Denies urinary urgency Musculoskeletal: Musculoskeletal: Reports no additional musculoskeletal complaints, Denies numbness and Denies tingling Neurologic: Denies dizziness, Denies loss of vision, Denies numbness and Denies tingling Psychiatric: Psychiatric: Reports no additional psychiatric complaints Endocrine: Endocrine: Reports no additional endocrine complaints Hematologic/Lymphatic: Hematologic/Lymphatic: Reports no additional hematologic/lymphatic complaints Allergic/Immunologic: Allergic/Immunologic: Reports no additional allergic/immunologic complaints [facility] Past Medical History Attestation statement: The following information was validated with the patient. Source: old records reviewed Medical History Dyslipidemia Genital HSV GERD (gastroesophageal reflux disease) Goiter Graves' disease in remission Hyperthyroidism Ulnar neuropathy Vitamin D deficiency Surgical History History of breast biopsy History of hysterectomy Family History Family History Father Hypertension Rheumatoid arthritis Prostate cancer Mother Stroke Rheumatoid arthritis Paternal Grandfather Prostate cancer Paternal Uncle Prostate cancer Paternal Aunt Colon cancer Brother Myocardial infarct Substance abuse Social History Social History Housing: House Alcohol intake: never Patient Tobacco Use Status: Never used Tobacco e-Cigarette/Vaping Use: Never Used Advance Directives: No Advance Directives Information Provided: No service: No Current occupational status: employed 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 Cognitive needs: No Hearing needs: No Vision needs: No Physical Exam ED Vital Signs: Vital Signs - 24 hr 03/06/22 10:58 Temperature 99.0 F Pulse Rate 114 H Respiratory Rate 18 Blood Pressure 147/93 H Pulse Oximetry 98 BMI result Body Mass Index 27.0 Const General: cooperative, no acute distress, alert and awake Nutritional Appearance: well nourished Orientation/consciousness: patient oriented x3 Limitations: no limitations HENMT Head: Yes normal to inspection and Yes atraumatic Ears: hearing grossly normal bilaterally and external ears normal General nose exam: Normal external nose present, no nasal discharge noted and no epistaxis Face and sinus: Yes normal facial exam, No abrasion and No laceration Mouth: Normal oral and palatal mucosa present, no drooling and no muffled voice Eyes General: appearance normal, both eyes and all related structures Periorbital: periorbital findings normal Eyelids: Yes eyelids normal Conjunctivae: conjunctivae normal Pupils: Equal, round and reactive pupils present EOM: EOMs intact bilaterally Neck Neck: Yes normal visual inspection, Yes full ROM and Yes no lymphadenopathy Chest Chest palpation & inspection: normal inspection of the chest Resp Effort & Inspection: normal respiratory effort, able to speak in complete sentences and Actively coughing Auscultation: clear to auscultation bilaterally Cardio Rate: regular rate Rhythm: regular rhythm GI Inspection: Yes normal to inspection Neuro General: patient oriented x3 and moves all extremities Cranial nerves: Yes Equal, round and reactive pupils present Cognition (Neuro): normal cognition Motor exam (neuro): 5/5 motor strength present throughout Sensory Exam: Normal double simultaneous stimulation for sensation Coordination: [id number] test normal Extrem General: Yes normal to inspection, Yes full ROM and Yes capillary refill normal Psych Appearance: grossly normal Mental Status: mental status grossly normal Affect: normal affect Attitude: cooperative Thought process: Normal thought process present Thought content: Normal thought content present Insight: Good insight present (Psych) Medical Decision Making MDM Narrative Medical decision making narrative: Patient is a 56 year old female presenting to the emergency department today with a cough. Patient's physical exam was unremarkable. Patient's rapid COVID-19 and influenza tests were negative. Patient's chest x-ray showed no acute process. I explained my physical exam findings as well as all test results to the patient. I answered all questions asked by the patient. I stressed the importance of the patient taking her medication as prescribed. I stressed the importance of the patient following up with her primary care provider. I stressed the importance of the patient returning to the emergency department immediately if her symptoms were to worsen or if she were to develop any dizziness, shortness of breath, difficulty breathing, chest pain, blurry vision, loss of vision, nausea, vomiting, abdominal pain, fever, chills, back pain, or any other complaints. Patient verbalized agreement and understanding with this treatment plan and discharge. Differential Diagnosis Differential Diagnosis: mycoplasma pneumonia, COVID-19, influenza Medical Records Medical records reviewed: Yes I reviewed the patient's medical records. Lab Data Lab results reviewed: Yes I reviewed the patient's lab results. Labs: Lab Results 03/06/22 03/06/22 Range/Units 11:01 11:45 COVID-19 (KEV) Negative (Negative) COVID-19 Clin Com See Note Influenza Type A (ARTEMIO) Negative (Negative) Influenza Type B (ARTEMIO) Negative (Negative) Influenza A & B Note See Note Imaging Data Chest x-ray: Attestation: I personally reviewed and interpreted this imaging study as follows: My impression: No acute process. Radiologist's impression: EXAMINATION: XR CHEST CLINICAL INFORMATION: Cough COMPARISON: Prior x-ray February 23, 2022 TECHNIQUE: Frontal view of the chest was obtained. FINDINGS: Minimal linear opacity at the left base similar to prior? Cardiomediastinal silhouette normal. Bone and soft tissues unremarkable discoid atelectasis XR/XR chest 1V IMPRESSION: No change. No acute disease. ? Stable atelectasis versus scarring left base. Dictated By: Jerad Kasper MD Signed By: Electronically signed by Jerad Kasper MD 03/06/22 1145 Discharge Plan Discharge Clinical Impression: Cough Patient Disposition: Home, Self-Care Instructions: Acute Cough (ED) Additional Instructions: Follow up with your primary care provider. Return to the emergency department immediately if your symptoms worsen or if you develop any dizziness, shortness of breath, difficulty breathing, chest pain, blurry vision, loss of vision, nausea, vomiting, abdominal pain, fever, chills, back pain, or any other complaints. Prescriptions: New doxycycline hyclate 100 mg tablet 100 mg PO BID 5 Days Qty: 10 0RF No Action acetaminophen [Tylenol Extra Strength] 500 mg tablet 1,000 mg PO Q8H PRN (Reason: fever or pain) 30 Days Qty: 180 0RF nystatin-triamcinolone 100,000-0.1 unit/g-% cream 1 appl topical BID Qty: 30 0RF nystatin 100,000 unit/gram powder 1 appl topical BID Qty: 30 0RF meclizine 25 mg tablet 25 mg PO DAILY PRN (Reason: dizziness) Qty: 20 0RF multivitamin Tablet 1 tab PO DAILY 0RF Icy Hot (menthol) 16 % aerosol,spray topical 0RF Referrals: Po,Ag Saul MD [Primary Care Provider] - Stand Alone Forms: Work/School Release Interventions: ED Discharge Assessment Last Done: 03/06/22 12:15 Discharge Date/Time: 03/06/22 12:16 Print Language: Mohawk
[2022-03-06 11:23] LABS: COVID-19 Test Negative (Negative); IDNOW Serial# 16C4AD1C
[2022-03-06 12:04] LABS: IDNOW Serial# 9DB6401D; Influenza A Negative (Negative); Influenza B2 Negative (Negative)
== END 2022-03-06 12:16 | disposition home or self-care (01) ==
PROVIDERS: Physician Assistant Medical; Emergency Provider Emergency Medicine; PCP Internal Medicine
DX: R05.9 Cough, unspecified (principal); Z20.822 Contact with and (suspected) exposure to COVID-19
CPT/HCPCS: 71045; 87502; 87635; 99283

== ENCOUNTER 2022-04-08 15:57 | Outpatient (REF) | payer OTHER, SELFPAY ==
[2022-04-08 16:42] LABS: Alanine Aminotransferase 30 U/L (0-31); Albumin Level 4.1 g/dL (3.5-5.0); Alkaline Phosphatase 72 U/L (39-117); Aspartate Amino Transferase 20 U/L (5-31); Bilirubin Direct < 0.2 mg/dL (0.0-0.5); Bilirubin Total 0.3 mg/dL (0.0-1.0)
[2022-04-08 17:03] LABS: Free T4 (Free Thyroxine) 0.95 ng/dL (0.71-1.85); Thyroid Stimulating Hormone 0.62 uIU/mL (0.32-4.0); Vitamin D 25-OH Total 43.6 ng/mL (>30)
[2022-04-09 22:27] LABS: Triiodothyronine T3 Total 117 ng/dL (76-181)
== END 2022-04-08 15:58 | disposition home or self-care (01) ==
LOC: HO.LAB 15:57
PROVIDERS: Internal Medicine; PCP Internal Medicine; Visit Provider Nurse Practitioner Family
DX: E05.90 Thyrotoxicosis, unspecified without thyrotoxic crisis or storm (principal); E55.9 Vitamin D deficiency, unspecified; B35.1 Tinea unguium
CPT/HCPCS: 36415; 80076; 82306; 84439; 84443; 84480

== ENCOUNTER 2022-04-15 11:06 | Emergency (ER) | payer OTHER, SELFPAY ==
--- NOTE | 2022-04-15 | ECG_ITS ---
Test Reason : medication overdose Blood Pressure : / mmHG Vent. Rate : 063 BPM Atrial Rate : 063 BPM P-R Int : 126 ms QRS Dur : 092 ms QT Int : 440 ms P-R-T Axes : 034 053 072 degrees QTc Int : 450 ms Normal sinus rhythm Nonspecific T wave abnormality Borderline ECG When compared with ECG of 23-FEB-2022 09:40, No significant change was found Referred By: Generic ED Physician Electronically Signed By:DON CLAYTON
[2022-04-15 11:55] VITALS: BP 138/76; PULSE 63; RESP 18; TEMP 36.3; O2SAT 98; BMI 27.8
--- NOTE | 2022-04-15 12:06 | PC.NURSE ---
Spoke with Poison Control over the phone. Poison control advised to have EKG obtained, along with LFTs, Tylenol level, and electrolytes. Continue to monitor vital signs. Poison control to call back with updates.
--- NOTE | 2022-04-15 12:09 | PC.NURSE ---
Callback number for poison control is [phone].
[2022-04-15 12:23] LABS: MANUAL DIFF FLAG NO
[2022-04-15 12:25] LABS: Basophils Percent Auto 0.4 % (0-2); Eosinophils Percent Auto 0.4 % (0-4); Hemoglobin 13.7 g/dl (12.0-16.0); Imm Gran Abs Auto 0.01 X10*3/uL (0.00-0.03); Imm Gran Pct Auto 0.2 % (0.0-0.4); Lymphocytes Absolute Auto 1.3 X10*3/uL (1.2-4.9); Lymphocytes Percent Auto 26.4 % (20-40); Mean Corpuscular HGB Conc 34.3 g/dl (31.0-35.0); Mean Corpuscular Hemoglobin 31.6 pg (27.0-33.0); Mean Corpuscular Volume 92.4 fL (80.0-98.0); Mean Platelet Volume 9.4 fL (9.4-12.3); Monocytes Absolute Auto 0.2 X10*3/uL (0.1-1.2); Monocytes Percent Auto 4.3 % (2-11); Neutrophils Absolute Auto 3.4 x10*3/uL (2.0-8.3); Neutrophils Percent Auto 68.3 % (45-73); Platelet Count 319 X10*3/uL (160-400); Red Blood Count 4.33 X10*6/uL (4.20-5.50); Red Cell Distribution Width 11.5 % (11.0-16.0); White Blood Count 4.9 X10*3/uL (4.8-10.8)
[2022-04-15 12:54] LABS: Acetaminophen LAB 5 mcg/mL (<30); Alanine Aminotransferase 36 U/L (0-31); Albumin Level 4.5 g/dL (3.5-5.0); Alkaline Phosphatase 76 U/L (39-117); Anion Gap 11 (12-20); Aspartate Amino Transferase 23 U/L (5-31); Bilirubin Direct < 0.2 mg/dL (0.0-0.5); Bilirubin Total < 0.2 mg/dL (0.0-1.0); Blood Urea Nitrogen 14 mg/dL (9-16); Calcium 10.2 mg/dL (8.4-10.2); Carbon Dioxide 29 mmol/L (22-29); Chloride 104 mmol/L (96-108); Estimated Glomerular Filt Rate > 60; Glucose Random 127 mg/dL (60-115); Potassium 4.2 mmol/L (3.3-5.1); Sodium 140 mmol/L (135-145); Total Protein 7.6 g/dL (6.5-8.0)
[2022-04-15 13:47] LABS: Magnesium 2.1 mg/dL (1.6-2.6); Salicylate < 5.0 mg/dL (15-30)
[2022-04-15 14:00] VITALS: BP 134/76; PULSE 60; RESP 16; TEMP 36.9; O2SAT 100
--- NOTE | 2022-04-15 14:44 | ED_ITS ---
HPI - General Adult General Chief complaint: Overdose Stated complaint: migraine yesterday, took too much Tylenol? Time Seen by Provider: 04/15/22 12:55 Source: patient Mode of arrival: ambulatory Limitations: no limitations History of Present Illness HPI narrative: 56 years old female with history of migraine, patient been getting migraine more frequent in the last week, patient had to take Tylenol for her migraine yesterday because she felt migraine is severe she still 10 pills of Tylenol each 500 mg over 10 hours yesterday, patient decline any abdominal pain, mild nausea with no vomiting. No fever, no chills. Patient do not feel migraine today. Patient admitted taking Tylenol for the severe migraine headache, declined SI or HI for being depressed. Related Data Home Medications Medication Instructions Recorded Confirmed menthol 16 % topical spray (Icy spray topical 02/03/21 03/03/22 Hot (menthol)) multivitamin 1 tab PO DAILY 02/03/21 03/03/22 Previous Rx's Medication Instructions Recorded acetaminophen 500 mg tablet 1,000 mg PO Q8H PRN fever or pain 08/19/21 (Tylenol Extra Strength) 30 days #180 tabs nystatin 100,000 unit/gram topical 1 appl topical BID #30 grams 01/21/22 powder nystatin-triamcinolone 100,000 1 appl topical BID #30 grams 01/21/22 unit/g-0.1 % topical cream meclizine 25 mg tablet 25 mg PO DAILY PRN dizziness #20 02/14/22 tabs doxycycline hyclate 100 mg tablet 100 mg PO BID 5 days #10 tabs 03/06/22 ciclopirox 8 % topical solution 1 appl topical BEDTIME 4 weeks 04/05/22 (Ciclodan) #6.6 mL terbinafine HCl 250 mg tablet 250 mg PO DAILY #30 tabs 04/11/22 Allergies Allergy/AdvReac Type Severity Reaction Status Date / Time No Known Allergies Allergy Verified 04/15/22 12:01 Review of Systems Review of Systems: All other systems are reviewed and are negative Constitutional: Reports as per HPI and Reports no additional constitutional complaints Eyes: Reports as per HPI and Reports no additional eye complaints Reports system reviewed and no additional complaints, except as documented Cardiovascular: Reports as per HPI and Reports no additional cardiovascular complaints Respiratory: Reports as per HPI and Reports no additional respiratory complaints Gastrointestinal: Reports as per HPI and Reports no additional gastrointestinal complaints Genitourinary: Reports no additional female genitourinary complaints Musculoskeletal: Reports no additional musculoskeletal complaints Skin/Breast: Reports system reviewed and no additional complaints, except as docu Psychiatric: Reports no additional psychiatric complaints Endocrine: Reports no additional endocrine complaints Hematologic/Lymphatic: Reports no additional hematologic/lymphatic complaints Allergic/Immunologic: Reports no additional allergic/immunologic complaints Reports system reviewed and no additional complaints, except as documented and Reports Abnormal speech present [facility] Past Medical History Medical History Dyslipidemia Genital HSV GERD (gastroesophageal reflux disease) Goiter Graves' disease in remission Hyperthyroidism Ulnar neuropathy Vitamin D deficiency Surgical History History of breast biopsy History of hysterectomy Family History Family History Father Hypertension Rheumatoid arthritis Prostate cancer Mother Stroke Rheumatoid arthritis Paternal Grandfather Prostate cancer Paternal Uncle Prostate cancer Paternal Aunt Colon cancer Brother Myocardial infarct Substance abuse Social History Social History Housing: House Alcohol intake: never Patient Tobacco Use Status: Never used Tobacco e-Cigarette/Vaping Use: Never Used Advance Directives: No Advance Directives Information Provided: No service: No Current occupational status: employed 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 Blood pressure normal. Heart rate normal. Respiration rate normal. Temperature normal. O xygen saturation normal. Appearance: Alert. Oriented X3. No acute distress. Head: Normal external exam. Normocephalic. Atraumatic. No Ibanez signs noted. No raccoon eyes noted Eyes: PERRLA. EOMI. Conjunctiva and sclera normal. Eyelids normal. ENT: TM's Normal. Pharynx normal. Uvula midline. Moist mucous membranes. No trismus noted. No drooling noted. No muffled voice noted. Neck: Normal inspection. Neck supple. FROM. No adenopathy. Thyroid Normal. No meningeal signs. No neck mass noted. CVS: Normal heart rate and rhythm. Heart sound normal. No murmurs noted. Pulses normal throughout. Respiratory: No respiratory distress. Painless inspiration. Breath sounds normal. No wheezes/rales/rhonchi noted. Chest nontender. No accessory muscle usage noted or decreased air movement noted. Abdomen: Soft and nontender. Bowel sounds normal in all 4 quadrants. No dist ention noted. No organomegaly noted. No visible injury noted. Back: No CVA tenderness. Full range of motion noted. Skin: Skin warm and dry. Normal skin color. Normal skin turgor. No rashes/lesi ons/lacerations noted. Extremities: No lower extremity edema. Extremities exhibit normal range of motion. Extremities nontender. Neuro: Oriented X 3. Cranial nerve exam: II-XII are grossly intact No motor deficit. No sensory deficit. Reflexes normal. Course Course Course Narrative: Assessment and plan. 56-year-old female came in for evaluation for possible Tylenol overdose after she talk 5000 mg of Tylenol over 12 hours range trying to manage a bad migraine she had yesterday, last ingestion was 06:00 about 12 hours ago, labs are remarkable for slight elevation of ALT, otherwise Tylenol level is subtherapeutic, unremarkable EKG and labs. Patient is able to tolerate p.o. intake. Repeat abdominal exam showed no abdominal pain or tenderness in particular in the right upper quadrant region. Poison Control consultation is appreciated. Medical Decision Making Lab Data Lab results reviewed: Yes I reviewed the patient's lab results. Result diagrams: 04/15/22 12:17 04/15/22 15:57 Labs: Lab Results 04/15/22 04/15/22 04/15/22 Range/Units 12:17 12:17 15:42 WBC 4.9 (4.8-10.8) X10*3/uL RBC 4.33 (4.20-5.50) X10*6/uL Hgb 13.7 (12.0-16.0) g/dl Hct 40.0 (37.0-47.0) % MCV 92.4 (80.0-98.0) fL MCH 31.6 (27.0-33.0) pg MCHC 34.3 (31.0-35.0) g/dl RDW 11.5 (11.0-16.0) % Plt Count 319 (160-400) X10*3/uL MPV 9.4 (9.4-12.3) fL Immature Gran % (Auto) 0.2 (0.0-0.4) % Neut % (Auto) 68.3 (45-73) % Lymph % (Auto) 26.4 (20-40) % Deuel % (Auto) 4.3 (2-11) % Eos % (Auto) 0.4 (0-4) % Baso % (Auto) 0.4 (0-2) % Lymph # (Auto) 1.3 (1.2-4.9) X10*3/uL Deuel # (Auto) 0.2 (0.1-1.2) X10*3/uL Eos # (Auto) 0.0 (0.0-0.4) X10*3/uL Baso # (Auto) 0.0 (0.0-0.2) X10*3/uL Abs Immat Gran (auto) 0.01 (0.00-0.03) X10*3/uL Absolute Neuts (auto) 3.4 (2.0-8.3) x10*3/uL Absolute Nucleated RBC 0.000 (0.0-0.012) X10*3/uL Nucleated RBC % (auto) 0.0 (0.0-0.2) /100WBC PT 10.8 (10.0-13.1) SEC INR 0.9 (0.9-1.1) Sodium 140 (135-145) mmol/L Potassium 4.2 (3.3-5.1) mmol/L Chloride 104 (96-108) mmol/L Carbon Dioxide 29 (22-29) mmol/L Anion Gap 11 L (12-20) BUN 14 (9-16) mg/dL Creatinine 0.78 (0.5-1.4) mg/dL Estim Creat Clear Calc 72.0 Estimated GFR > 60 Random Glucose 127 H (60-115) mg/dL Calcium 10.2 (8.4-10.2) mg/dL Magnesium 2.1 (1.6-2.6) mg/dL Total Bilirubin < 0.2 (0.0-1.0) mg/dL Direct Bilirubin < 0.2 (0.0-0.5) mg/dL AST 23 (5-31) U/L ALT 36 H (0-31) U/L Alkaline Phosphatase 76 (39-117) U/L Total Protein 7.6 (6.5-8.0) g/dL Albumin 4.5 (3.5-5.0) g/dL Lipase (8-78) U/L Salicylates < 5.0 L (15-30) mg/dL Acetaminophen 5 (<30) mcg/mL Ethyl Alcohol mg/dL 04/15/22 Range/Units 15:57 WBC (4.8-10.8) X10*3/uL RBC (4.20-5.50) X10*6/uL Hgb (12.0-16.0) g/dl Hct (37.0-47.0) % MCV (80.0-98.0) fL MCH (27.0-33.0) pg MCHC (31.0-35.0) g/dl RDW (11.0-16.0) % Plt Count (160-400) X10*3/uL MPV (9.4-12.3) fL Immature Gran % (Auto) (0.0-0.4) % Neut % (Auto) (45-73) % Lymph % (Auto) (20-40) % Deuel % (Auto) (2-11) % Eos % (Auto) (0-4) % Baso % (Auto) (0-2) % Lymph # (Auto) (1.2-4.9) X10*3/uL Deuel # (Auto) (0.1-1.2) X10*3/uL Eos # (Auto) (0.0-0.4) X10*3/uL Baso # (Auto) (0.0-0.2) X10*3/uL Abs Immat Gran (auto) (0.00-0.03) X10*3/uL Absolute Neuts (auto) (2.0-8.3) x10*3/uL Absolute Nucleated RBC (0.0-0.012) X10*3/uL Nucleated RBC % (auto) (0.0-0.2) /100WBC PT (10.0-13.1) SEC INR (0.9-1.1) Sodium 140 (135-145) mmol/L Potassium 4.3 (3.3-5.1) mmol/L Chloride 105 (96-108) mmol/L Carbon Dioxide 26 (22-29) mmol/L Anion Gap 13 (12-20) BUN 12 (9-16) mg/dL Creatinine 0.74 (0.5-1.4) mg/dL Estim Creat Clear Calc 75.9 Estimated GFR > 60 Random Glucose 91 (60-115) mg/dL Calcium 10.1 (8.4-10.2) mg/dL Magnesium (1.6-2.6) mg/dL Total Bilirubin 0.4 (0.0-1.0) mg/dL Direct Bilirubin < 0.2 (0.0-0.5) mg/dL AST 25 (5-31) U/L ALT 39 H (0-31) U/L Alkaline Phosphatase 79 (39-117) U/L Total Protein 7.9 (6.5-8.0) g/dL Albumin 4.6 (3.5-5.0) g/dL Lipase 24 (8-78) U/L Salicylates (15-30) mg/dL Acetaminophen 2 (<30) mcg/mL Ethyl Alcohol < 10 mg/dL Discharge Plan Discharge Clinical Impression: Migraine, Unintentional Tylenol overdose Patient Disposition: Home, Self-Care Instructions: Acetaminophen Overdose (ED) Prescriptions: No Action acetaminophen [Tylenol Extra Strength] 500 mg tablet 1,000 mg PO Q8H PRN (Reason: fever or pain) 30 Days Qty: 180 0RF terbinafine HCl 250 mg tablet 250 mg PO DAILY Qty: 30 0RF doxycycline hyclate 100 mg tablet 100 mg PO BID 5 Days Qty: 10 0RF nystatin-triamcinolone 100,000-0.1 unit/g-% cream 1 appl topical BID Qty: 30 0RF nystatin 100,000 unit/gram powder 1 appl topical BID Qty: 30 0RF meclizine 25 mg tablet 25 mg PO DAILY PRN (Reason: dizziness) Qty: 20 0RF ciclopirox [Ciclodan] 8 % solution 1 appl topical BEDTIME 28 Days Qty: 6.6 2RF multivitamin Tablet 1 tab PO DAILY Icy Hot (menthol) 16 % aerosol,spray topical Referrals: Po,Ag Saul MD [Primary Care Provider] -
[2022-04-15 16:00] VITALS: BP 137/74; PULSE 65; RESP 16; TEMP 37.1; O2SAT 99
[2022-04-15 16:11] LABS: INTERNATIONAL NORM RATIO 0.9 (0.9-1.1); Prothrombin Time 10.8 SEC (10.0-13.1)
[2022-04-15 16:23] LABS: Acetaminophen LAB 2 mcg/mL (<30); Alanine Aminotransferase 39 U/L (0-31); Albumin Level 4.6 g/dL (3.5-5.0); Alkaline Phosphatase 79 U/L (39-117); Anion Gap 13 (12-20); Aspartate Amino Transferase 25 U/L (5-31); Bilirubin Direct < 0.2 mg/dL (0.0-0.5); Bilirubin Total 0.4 mg/dL (0.0-1.0); Blood Urea Nitrogen 12 mg/dL (9-16); Calcium 10.1 mg/dL (8.4-10.2); Carbon Dioxide 26 mmol/L (22-29); Chloride 105 mmol/L (96-108); Creatinine Clr Calc Pharmacy 75.9; Estimated Glomerular Filt Rate > 60; Ethanol < 10 mg/dL; Glucose Random 91 mg/dL (60-115); Lipase 24 U/L (8-78); Potassium 4.3 mmol/L (3.3-5.1); Sodium 140 mmol/L (135-145); Total Protein 7.9 g/dL (6.5-8.0)
--- NOTE | 2022-04-15 16:57 | PC.NURSE ---
spoke with poison control at [phone] and they recommended the pt be discharged and educated to return to ED for RUQ abdominal pain/n&V
[2022-04-15 17:55] VITALS: BP 137/68; PULSE 74; RESP 16; O2SAT 98
== END 2022-04-15 17:59 | disposition home or self-care (01) ==
PROVIDERS: Physician Assistant; Emergency Provider Emergency Medicine; PCP Internal Medicine
DX: T39.1X1A Poisoning by 4-Aminophenol derivatives, accidental (unintentional), initial encounter (principal); G43.909 Migraine, unspecified, not intractable, without status migrainosus; Y92.009 Unspecified place in unspecified non-institutional (private) residence as the place of occurrence of the external cause; Z79.899 Other long term (current) drug therapy
CPT/HCPCS: 36415; 80048; 80053; 80076; 80143; 80179; 82077; 82248; 83690; 83735; 85025; 85610; 93005; 99283; 99284

== ENCOUNTER 2022-10-31 08:18 | Outpatient (REF) | payer OTHER, SELFPAY ==
--- NOTE | ~2022-10-31 | XR_ITS ---
EXAMINATION: XR CERVICAL SPINE CLINICAL INFORMATION: Neck pain COMPARISON: None TECHNIQUE: 3 views of the cervical spine were obtained. FINDINGS: Is mild straightening of cervical lordosis. The vertebral heights and alignment is normal. Mild loss of C5-C6 and C6-C7 disc heights with ventral and posterior spondylosis. No visible acute fracture, dislocation or subluxation seen. The prevertebral and paravertebral soft tissues are normal. XR/XR cervical spine 2V IMPRESSION: Degenerative disc changes C5-C6 and C6-C7 disc levels with ventral and posterior spondylosis. No visible acute fracture or dislocation seen.
== END 2022-10-31 08:19 | disposition home or self-care (01) ==
LOC: HO.XRAY 08:18
PROVIDERS: PCP Internal Medicine; Visit Provider Nurse Practitioner Family
DX: S16.1XXA Strain of muscle, fascia and tendon at neck level, initial encounter (principal); M54.2 Cervicalgia
CPT/HCPCS: 72040

== ENCOUNTER 2022-12-29 12:23 | Outpatient (REF) | payer OTHER, SELFPAY ==
--- NOTE | ~2022-12-29 | XR_ITS ---
EXAMINATION: XR KNEE AP STANDING CLINICAL INFORMATION: Pain. COMPARISON: None available. TECHNIQUE: AP bilateral standing view of the knees was obtained. FINDINGS: Bones and soft tissues are normal. No fracture or joint effusion. Alignment is anatomic. Joint spaces are well maintained. No abnormal soft tissue calcification. XR/XR knee standing BI IMPRESSION: Normal knees.
--- NOTE | ~2022-12-29 | XR_ITS ---
EXAMINATION: XR HAND, RIGHT CLINICAL INFORMATION: Pain. COMPARISON: None available. TECHNIQUE: PA, lateral, and oblique views of the right hand. FINDINGS: The bones and soft tissues are normal. No fracture. Alignment is anatomic. There is a mild ulnar minus variance. Joint spaces are maintained. No erosions or soft tissue calcifications. XR/XR hand RT 2V IMPRESSION: Normal right hand. EXAMINATION: XR HAND, LEFT CLINICAL INFORMATION: Pain. COMPARISON: None available. TECHNIQUE: PA, lateral, and oblique views of the left hand. FINDINGS: Bony alignment and mineralization are normal. There is a mild ulnar minus variance. The fourth distal interphalangeal joint space shows mild narrowing and very mild peripheral osteophyte formation. No fracture or dislocation is seen. There is no abnormal bone erosion. No soft tissue calcification or foreign body is seen. 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 No fracture or dislocation is seen. There is no abnormal bony erosive change.
--- NOTE | ~2022-12-29 | XR_ITS ---
EXAMINATION: XR HAND, RIGHT CLINICAL INFORMATION: Pain. COMPARISON: None available. TECHNIQUE: PA, lateral, and oblique views of the right hand. FINDINGS: The bones and soft tissues are normal. No fracture. Alignment is anatomic. There is a mild ulnar minus variance. Joint spaces are maintained. No erosions or soft tissue calcifications. XR/XR hand LT 2V IMPRESSION: Normal right hand. EXAMINATION: XR HAND, LEFT CLINICAL INFORMATION: Pain. COMPARISON: None available. TECHNIQUE: PA, lateral, and oblique views of the left hand. FINDINGS: Bony alignment and mineralization are normal. There is a mild ulnar minus variance. The fourth distal interphalangeal joint space shows mild narrowing and very mild peripheral osteophyte formation. No fracture or dislocation is seen. There is no abnormal bone erosion. No soft tissue calcification or foreign body is seen. 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 No fracture or dislocation is seen. There is no abnormal bony erosive change.
== END 2022-12-29 12:24 | disposition home or self-care (01) ==
LOC: HO.XRAY 12:23
PROVIDERS: PCP Internal Medicine; Visit Provider Internal Medicine
DX: M79.642 Pain in left hand (principal); M79.641 Pain in right hand; M17.0 Bilateral primary osteoarthritis of knee
CPT/HCPCS: 73120; 73565

== ENCOUNTER 2023-01-06 07:23 | Outpatient (REF) | payer OTHER, SELFPAY ==
[2023-01-06 07:42] LABS: MANUAL DIFF FLAG NO
[2023-01-06 07:57] LABS: Basophils Percent Auto 0.5 % (0-2); Eosinophils Absolute Auto 0.1 X10*3/uL (0.0-0.4); Eosinophils Percent Auto 2.3 % (0-4); Hematocrit 40.2 % (37.0-47.0); Hemoglobin 13.4 g/dl (12.0-16.0); Imm Gran Abs Auto 0.01 X10*3/uL (0.00-0.03); Imm Gran Pct Auto 0.2 % (0.0-0.4); Lymphocytes Absolute Auto 1.4 X10*3/uL (1.2-4.9); Lymphocytes Percent Auto 31.3 % (20-40); Mean Corpuscular HGB Conc 33.3 g/dl (31.0-35.0); Mean Corpuscular Hemoglobin 31.3 pg (27.0-33.0); Mean Corpuscular Volume 93.9 fL (80.0-98.0); Mean Platelet Volume 9.9 fL (9.4-12.3); Monocytes Absolute Auto 0.3 X10*3/uL (0.1-1.2); Neutrophils Absolute Auto 2.5 x10*3/uL (2.0-8.3); Neutrophils Percent Auto 58.7 % (45-73); Platelet Count 261 X10*3/uL (160-400); Red Blood Count 4.28 X10*6/uL (4.20-5.50); Red Cell Distribution Width 11.8 % (11.0-16.0); White Blood Count 4.3 X10*3/uL (4.8-10.8)
[2023-01-06 07:59] LABS: Appearance Urine Clear; Color Urine Yellow; Glucose Urine UA Negative (Negative); Leukocyte Esterase Urine Negative (Negative); Nitrite Urine Negative (Negative); PH >= 9.0 (5.0-9.0); Specific Gravity - Urine 1.015 (1.005-1.025); Urine Blood Negative (Negative); Urine Ketones Negative (Negative); Urine Protein Negative (Neg-Trace)
[2023-01-06 08:05] LABS: Bacteria Urine None Seen (None Seen); Hyaline Casts Urine 0-2 /LPF (0-2); Squamous Epithelial Cell Urine 0-2 /HPF (0-2); WBC Urine 0-5 /HPF (0-5)
[2023-01-06 08:32] LABS: Alanine Aminotransferase 35 U/L (0-31); Albumin Level 4.1 g/dL (3.5-5.0); Alkaline Phosphatase 73 U/L (39-117); Anion Gap 13 (12-20); Aspartate Amino Transferase 26 U/L (5-31); Bilirubin Total 0.6 mg/dL (0.0-1.0); Blood Urea Nitrogen 9 mg/dL (9-16); Calcium 9.5 mg/dL (8.4-10.2); Carbon Dioxide 27 mmol/L (22-29); Chloride 107 mmol/L (96-108); Cholesterol 204 mg/dL; Estimated Glomerular Filt Rate > 60; Glucose Random 88 mg/dL (60-115); HDL Cholesterol 42 mg/dL; LDL Cholesterol Calculated 132 mg/dl; Potassium 4.6 mmol/L (3.3-5.1); Sodium 142 mmol/L (135-145); Total Protein 6.6 g/dL (6.5-8.0); Triglycerides 152 mg/dL
[2023-01-06 09:02] LABS: Folate 16.9 ng/mL (> or = 4.0); Free T4 (Free Thyroxine) 1.12 ng/dL (0.71-1.85); Thyroid Stimulating Hormone 0.78 uIU/mL (0.32-4.0); Vitamin B12 1025 pg/mL (200-900); Vitamin D 25-OH Total 58.4 ng/mL (>30)
== END 2023-01-06 07:24 | disposition home or self-care (01) ==
LOC: HO.LAB 07:23
PROVIDERS: PCP Internal Medicine; Visit Provider Internal Medicine
DX: E78.5 Hyperlipidemia, unspecified (principal); E78.00 Pure hypercholesterolemia, unspecified; E05.90 Thyrotoxicosis, unspecified without thyrotoxic crisis or storm; K21.9 Gastro-esophageal reflux disease without esophagitis
CPT/HCPCS: 36415; 80053; 80061; 81001; 82306; 82607; 82746; 84439; 84443; 85025

== ENCOUNTER 2023-03-21 17:00 | Outpatient (RCR) | payer OTHER, SELFPAY ==
--- NOTE | 2023-02-02 18:01 | MHC.PT.EP ---
[facility] [place] Office [place] Office [place] Office [address] [phone] F: [phone] F: [phone] F: [phone] F: [phone] Physical Therapy Plan of Care Date of Evaluation: Date of Surgery: N/A Diagnosis: other cervical disc degeneration, unspecified cervical region Assessment: Pt is a pleasant 57yo F who presents to PT with B neck pain. She presents to PT with current impairments in pain, decreased cervical ROM, decreased strength, soft tissue restrictions, and impaired posture. She is limited functionally by looking down, bending, head rotation, and sleeping. She is a good candidate for skilled PT in order to address current impairments to facilitate return to PLOF. She is recommended to be seen 2x/week for 4 weeks and will be reassessed at that time. Frequency and Duration: The patient will be seen 2x/week for 4 weeks Short Term Goals: Pt will be I with HEP to promote self management of symptoms Pt will improve B lateral flexion by 10 degrees Chcf Goals: Pt will demonstrate full ROM all planes of cervical spine with minimal to no discomfort Pt will demonstrate improvements in function as evidenced by statistically signficiant improvement in Neck Pain and Disability Index Questionnaire Treatment Plan: Modalities to reduce pain, spasms and effusion. Manual therapy to restore motion and function. Therapeutic exercise to improve strength and flexibility. Neuromuscular re-education for posture and balance. Therapeutic activities to return to functional activities of daily living. Electronically signed by: Alexandra Corado, PT, DPT Please sign and return to therapist. Thank you for your referral.
--- NOTE | 2023-03-22 08:25 | MHC.PT.DC ---
[facility] [place] Office [place] Office [place] Office [address] [phone] F: [phone] F: [phone] F: [phone] F: [phone] Physical Therapy Discharge Report Diagnosis: other cervical disc degeneration, unspecified cervical region Date of Surgery: N/A Date of Evaluation: 02/02/23 Date of Discharge: 03/22/23 Treatments to Date: 7 Cancellations to Date: No Shows to Date: Discharge Status: Achieved Goals Improved Function Independent with HEP Discharge Summary: Pt was seen for PT from 02/02/23-03/21/23. She has made excellent progress since SOC. She has met her STGs and her LTGs. She has improved her score on Neck Pain Disability Index Questionnaire from 24/50 on initial PT evaluation to 12/50 on D/C on 03/21/23. Pt is I with HEP. Pt is being D/C from skilled PT at this time. Pt reported no questions for PT at time of D/C. Electronically signed by: Alexandra Corado, PT, DPT Please sign and return to therapist. Thank you for your referral.
== END 2023-03-22 08:24 | disposition home or self-care (01) ==
LOC: HO.PT 17:00
PROVIDERS: PCP Internal Medicine; Visit Provider Internal Medicine
DX: M50.30 Other cervical disc degeneration, unspecified cervical region (principal)
CPT/HCPCS: 97110; 97112; 97140; 97162; 97530

== ENCOUNTER 2023-07-08 08:01 | Outpatient (REF) | payer OTHER, SELFPAY | END 2023-07-08 08:02 | disposition home or self-care (01) | LOC: HO.MAMMO 08:01 | PROVIDERS: PCP Internal Medicine; Visit Provider Internal Medicine | DX: Z12.31 Encounter for screening mammogram for malignant neoplasm of breast (principal) | CPT/HCPCS: 77063; 77067 ==

== ENCOUNTER → 2023-07-08 08:15 | Outpatient (BNV) | payer OTHER, SELFPAY | PROVIDERS: PCP Internal Medicine; Visit Provider Radiology Diagnostic Radiology | DX: Z12.31 Encounter for screening mammogram for malignant neoplasm of breast (principal) | CPT/HCPCS: 77063; 77067 ==

== ENCOUNTER 2023-08-01 15:49 | Outpatient (REF) | payer OTHER, SELFPAY ==
[2023-08-03 19:39] LABS: TS Negative Control Passed; TS Panel A 0; TS Panel B 0; TS Positive Control Passed; TSpotTB Negative (Negative)
== END 2023-08-01 15:50 | disposition home or self-care (01) ==
LOC: HO.LAB 15:49
PROVIDERS: PCP Internal Medicine; Visit Provider Internal Medicine
DX: Z11.1 Encounter for screening for respiratory tuberculosis (principal)
CPT/HCPCS: 36415; 86481

== ENCOUNTER 2023-08-09 16:16 | Outpatient (REF) | payer OTHER, SELFPAY ==
[2023-08-09 18:00] LABS: Free T4 (Free Thyroxine) 0.92 ng/dL (0.71-1.85); Thyroid Stimulating Hormone 0.51 uIU/mL (0.32-4.0)
== END 2023-08-09 16:17 | disposition home or self-care (01) ==
LOC: HO.LAB 16:16
PROVIDERS: PCP Internal Medicine; Visit Provider Internal Medicine Endocrinology, Diabetes & Metabolism
DX: E05.00 Thyrotoxicosis with diffuse goiter without thyrotoxic crisis or storm (principal)
CPT/HCPCS: 36415; 84439; 84443

== ENCOUNTER 2023-08-14 10:47 | Outpatient (AMB) | payer OTHER, SELFPAY ==
[2023-08-14 10:51] VITALS: BP 90/58; PULSE 72; BMI 25.2
--- NOTE | 2023-08-14 10:51 | A.OFFVIS_ITS ---
Intake Vital Signs 08/14/23 10:51 Height 5 ft 1 in Weight 133 lb 6.075 oz BMI 25.2 BP 90/58 L Blood Pressure Location Lt brachial Position Sitting Pulse 72 Pulse Source Pulse Oximeter Intake Visit Reasons: F/U Subclinical hyperthyroidism Intake Note: Patient present today for Subclinical Hyperthyroidism. Previously followed by Dr. Ramos. Labor Trainer Required: No Accompanied by: Self / Same As Patient Allergies No Known Allergies Allergy (Verified 08/14/23 10:57) Medication List - Last Reconciled 08/14/23 by Freeman Hernandez MD acetaminophen (Tylenol Extra Strength) 1,000 mg (2 x 500 mg) PO Q8H PRN 30 days estradiol 1 patch transdermal 2XW meloxicam 15 mg PO DAILY HPI HPI Comments History of Present Illness Details 56 YO Female with a PMHx of subclinical Hyperthyroidism who is seen in F/U. She was previously followed by Dr. Lucio. Patient last saw Dr. Ramos on 03/03/2022 She was diagnosed with Grave's disease in 2018 based on a suppressed TSH. TRAB was positive, with TSI negative. TG antibody was mildly positive. She had an uptake and scan that was completed in 2017 when TSH was just below the lower limit of normal, not quite suppressed. Uptake and Scan was WNL at that time. She reports she was treated with Prednisone, but nothing else. She has been followed by Dr. Lucio with routine lab work and TSH had remained WNL. She then began to complain of hot flashes and mood instability. Labs revealed a TSH of 0.14. Thyroid ultrasound as well as uptake and scan were completed. Her Thyroid uptake and scan 11/11/2021 revealed uptake WNL at 26.79% at 24 hours. There was increased activity seen in the RLP, but no nodule on US seen in that location. Her R lobe of the thyroid is significantly larger than the L lobe. She was asked to repeat TFTs to confirm hyperthyroidism, but on repeat TSH was completely WNL. She was then asked to repeat labs in 6 weeks time and again TSH was WNL. She presents today to review these results. Thyroid Uptake and Scan: 11/11/2021 FINDINGS: The uptake is 9.53% at 4 hours and 26.79% at 24 hours. On thyroid imaging there is homogeneous isotope uptake seen throughout both lobes without any focal defect. However, there is increased focal activity seen in the mid to lower pole right thyroid lobe suggestive of hyperthyroid nodule. NM/NM thyroid w uptake IMPRESSION: Suspect small hyperthyroid nodule mid to lower pole right lobe. ? Slightly elevated 24 hour radioiodine uptake measuring 26.79%. Thyroid US: 11/05/2021 Right Thyroid Lobe: 5.8 x 1.8 x 1.9 cm, volume 10.3 mL. Previously 5.4 x 1.7 x 1.4 cm, volume 6.7 mL. Parenchyma: The gland echotexture is homogeneous. Thyroid vascularity is slightly increased. Left Thyroid Lobe: 4.6 x 1.3 x 1.5 cm, volume 4.7 mL. Previously 5.2 x 1.6 x 1.4 cm, volume 6.1 mL. Parenchyma: The gland echotexture is homogeneous. Thyroid vascularity is slightly increased. Isthmus: 0.3 cm in maximum AP dimension. Previously 0.3 cm. No focal thyroid nodule is seen. NODES: No lymphadenopathy is seen in the tissue surrounding the thyroid gland. Labs: Laboratory Tests 02/14/22 02/14/22 02/14/22 11:47 11:47 11:47 TSH 0.65 Free T4 0.91 Total T3 112 [facility] Medical History (Updated 12/29/22 @ 12:06 by Ag France MD) Strain of cervical portion of both trapezius muscles Cervicalgia Sprain of cervical neck Tinea corporis Irritant dermatitis Headache Paronychia of great toe Onychomycosis Palpitations Dizziness Tinea cruris Genital HSV Overweight (BMI 25.0-29.9) Ulnar neuropathy Vitamin D deficiency Hyperthyroidism Dyslipidemia GERD (gastroesophageal reflux disease) Goiter Graves' disease in remission Surgical History History of breast biopsy History of hysterectomy Family History Father Hypertension Rheumatoid arthritis Prostate cancer Mother Stroke Rheumatoid arthritis Paternal Grandfather Prostate cancer Paternal Uncle Prostate cancer Paternal Aunt Colon cancer Liver cancer Brother Myocardial infarct Substance abuse Social History Housing: House Alcohol intake: never Patient Tobacco Use Status: Never used Tobacco e-Cigarette/Vaping Use: Never Used service: No Current occupational status: employed 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 There are no thyroid nodules palpated Assessment & Plan Assessment & Plan (1) Graves' disease in remission: Code(s): E05.00 - Thyrotoxicosis with diffuse goiter without thyrotoxic crisis or storm Plan: This is a 58-year-old female with a history of subclinical hyperthyroidism now remission. She appears to be clinically and biochemically euthyroid. At this point, patient can return to the care of her primary care provider who can monitor TSH and free T4 on a q.6 to 1 year basis unless symptoms of hyperthyroidism recur. Should the hyperthyroidism recur, patient returned back to endocrinology Coding Level of Care Code Est Pt Level 3 (44690) Diagnoses Graves' disease in remission E05.00
== END 2023-08-14 11:07 | disposition home or self-care (01) ==
PROVIDERS: PCP Internal Medicine; Visit Provider Internal Medicine Endocrinology, Diabetes & Metabolism
DX: E05.00 Thyrotoxicosis with diffuse goiter without thyrotoxic crisis or storm (principal)
CPT/HCPCS: 99213

== ENCOUNTER → 2023-08-14 10:47 | Outpatient (BNVA) | payer OTHER, SELFPAY | PROVIDERS: PCP Internal Medicine; Visit Provider Internal Medicine Endocrinology, Diabetes & Metabolism | DX: E05.00 Thyrotoxicosis with diffuse goiter without thyrotoxic crisis or storm (principal) | CPT/HCPCS: 99212 ==

== ENCOUNTER 2023-11-22 09:52 | Outpatient (AMB) | payer OTHER, SELFPAY ==
--- NOTE | 2023-11-22 09:53 | AM.OFFWIN_ITS ---
Intake Vital Signs 11/22/23 09:54 Height 5 ft 1 in Weight 130 lb 6 oz BMI 24.6 BP 104/68 Blood Pressure Location Rt brachial Position Sitting Pulse 84 Pulse Source Pulse Oximeter Temp 98.2 F Temp Source Oral Pulse Oximetry (%) 98 Oxygen Delivery Method Room Air Intake Visit Reasons: EP cough congestion sore throat [id number] Intake Note: Pt is here c/o cough and congestion for the past five days. Pt states she has an on going cough and previously had a sore throat. Patient Tobacco Use Status: Never used Tobacco Allergies No Known Allergies Allergy (Verified 11/22/23 09:56) Do you need a note to return to daycare/school/sports/work: Yes HPI HPI Comments History of Present Illness Details Patient is a 58yo F who presents to office with URI symptoms + raspy voice ST since Monday onset coughing, with some phlegm Denies congestion and ear pain She has tried dayquil/nyquil and honey without relief Denies sick contacts No hx of asthma or breathing issues. No SOB No fever or chills Last had covid around new years; did not retest [facility] Medical History (Updated 11/22/23 @ 10:15 by Aydee Larios PA-C) Strain of cervical portion of both trapezius muscles Cervicalgia Sprain of cervical neck Tinea corporis Irritant dermatitis Headache Paronychia of great toe Onychomycosis Palpitations Dizziness Tinea cruris Genital HSV Overweight (BMI 25.0-29.9) Ulnar neuropathy Vitamin D deficiency Hyperthyroidism Dyslipidemia GERD (gastroesophageal reflux disease) Goiter Graves' disease in remission Surgical History History of breast biopsy History of hysterectomy Family History Father Hypertension Rheumatoid arthritis Prostate cancer Mother Stroke Rheumatoid arthritis Paternal Grandfather Prostate cancer Paternal Uncle Prostate cancer Paternal Aunt Colon cancer Liver cancer Brother Myocardial infarct Substance abuse Social History Housing: House Alcohol intake: never Patient Tobacco Use Status: Never used Tobacco e-Cigarette/Vaping Use: Never Used service: No Current occupational status: employed 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 Cognitive needs: No Hearing needs: No Vision needs: Yes Review of Systems Const Denies body aches, Denies chills and Denies fever(s) Eyes Denies blurry vision ENT Denies otalgia, Denies nasal discharge, Denies sinus pressure and Reports sore throat Card Denies chest pain and Denies dyspnea Resp Reports change in phlegm color, Reports cough and Denies dyspnea Physical Exam Vital Signs: Last Vital Signs Temp 98.2 F 11/22/23 09:54 Pulse 84 11/22/23 09:54 BP 104/68 11/22/23 09:54 Pulse Ox 98 11/22/23 09:54 Oxygen Delivery Method Room Air 11/22/23 09:54 BMI result Body Mass Index 24.6 General: Non-toxic, NAD. Speaking full sentences. Skin: Warm dry throughout Eye: EOMI HENT: Airway patent. Uvula midline. minimal pharyngeal erythema without exudates or edema. No COMPLAINT SPECIALIST. Lymph: No lymphadenopathy Bilateral canals clear. TM non-erythematous, non-bulging. No TM perforation or hemotympanum noted. Respiratory: CTA bilaterally. No wheezes, rales or rhonchi Cardiac: RRR. No murmur MSK: Full ROM extremities. Neurology: A/O No aphasia or facial droop. Gait without abnormality Psych: Good mood and affect Assessment & Plan Assessment & Plan (1) Upper respiratory infection: Code(s): J06.9 - Acute upper respiratory infection, unspecified Qualifiers: URI type: unspecified viral URI Qualified Code(s): J06.9 - Acute upper respiratory infection, unspecified Plan: Patient seen and evaluated. Lungs CTA ST improving and no exudates, fever or COMPLAINT SPECIALIST on exam. Centor -1, no strep indicated Tessalon for cough Patient gave verbal understanding and had no additional questions or concerns at time of discharge All questions answered Medications: New benzonatate 200 mg PO BID-TID PRN 20 caps 0RF cough Coding Level of Care Code Est Pt Level 3 (01432) Diagnoses Viral upper respiratory tract infection J06.9 URI type: unspecified viral URI
[2023-11-22 09:54] VITALS: BP 104/68; PULSE 84; TEMP 36.8; O2SAT 98; BMI 24.6
== END 2023-11-22 10:30 | disposition home or self-care (01) ==
PROVIDERS: PCP Internal Medicine; Visit Provider Physician Assistant
DX: J06.9 Acute upper respiratory infection, unspecified (principal)
CPT/HCPCS: 99213

== ENCOUNTER 2023-12-20 07:14 | Outpatient (AMB) | payer OTHER, SELFPAY ==
--- NOTE | 2023-12-20 07:37 | MHC.PC.OV ---
Vital Signs 12/20/23 07:38 Height 5 ft 1 in Weight 130 lb BMI 24.6 BP 108/70 Blood Pressure Location Lt brachial Position Sitting Intake Visit Reasons: Transfer of care from Dr. France Intake Note: Patient transferring of care from Dr France Sound Technician Supervisor Required: No Accompanied by: Self / Same As Patient Allergies No Known Allergies Allergy (Verified 12/20/23 07:53) Medication List - Last Reconciled 12/20/23 by Karlene Maxwell MD estradiol 1 patch transdermal 2XW meloxicam 15 mg PO DAILY Tobacco use date assessed: 12/20/23 Dental Screening Dental Screen Date: 12/20/23 Did you have a dental visit in the last 12 months?: Yes Did you have a dental problem in the last 6 months where you did not have access to dental care?: No Was dental information given to patient?: Patient has dentist HPI HPI Comments History of Present Illness Details This is a 58-year-old female with dyslipidemia that comes today to establish care. Lipid panel will be order as well as other labs. Has history of vitamin-D deficiency and vitamin-D levels will be checked. As Graves disease in remission follow by endocrinology. Denies any acute complaints such as chest pain or shortness of breath. Has cervical degenerative disc disease and use meloxicam as needed for pain. [facility] Medical History Strain of cervical portion of both trapezius muscles Cervicalgia Sprain of cervical neck Tinea corporis Irritant dermatitis Headache Paronychia of great toe Onychomycosis Palpitations Dizziness Tinea cruris Genital HSV Overweight (BMI 25.0-29.9) Ulnar neuropathy Vitamin D deficiency Hyperthyroidism Dyslipidemia GERD (gastroesophageal reflux disease) Goiter Graves' disease in remission Surgical History History of breast biopsy History of hysterectomy Family History Father Hypertension Prostate cancer Mother Stroke Paternal Grandfather Prostate cancer Paternal Uncle Prostate cancer Paternal Aunt Colon cancer Liver cancer Brother Myocardial infarct Substance abuse Social History Housing: House Alcohol intake: never Patient Tobacco Use Status: Never used Tobacco e-Cigarette/Vaping Use: Never Used Second Hand Smoke Exposure: No service: No Current occupational status: employed 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 1. Little interest or pleasure in doing things: not at all 2. Feeling down, depressed, or hopeless: not at all 3. Trouble falling or staying asleep, or sleeping too much: not at all 4. Feeling tired or having little energy: not at all 5. Poor appetite or overeating: not at all 6. Feeling bad about yourself - or that you are a failure or have let yourself or your family down: not at all 7. Trouble concentrating on things, such as reading the newspaper or watching television: not at all 8. Moving or speaking so slowly that other people could have noticed. Or the opposite - being so fidgety or restless that you have been moving around a lot more than usual: not at all 9. Thoughts that you would be better off or of hurting yourself in some way: not at all Total score: 0 Depression Screening Interpretation: Negative Depression Screening Done: Yes 12042 - PHQ-9 Billing: Yes Source: Developed by Drs. Freeman Herring, Clementina Molina, Devaughn Davies and colleagues, with an educational aries from [employer]. Thrive Questionnaire Date Thrive assessed: 12/20/23 I am a: Patient What is your living situation today?: I have a steady place to live Within the past 12 months, did the food you bought not last and you didn't have the money to get more?: Never true Within the past 12 months, did you worry whether your food would run out before you got money to buy more?: Never true Do you have trouble paying for medicines?: No Do you have trouble getting transportation to medical appointments?: No Do you have trouble paying your heating and electricity bill?: No Do you have trouble taking care of your child, family member or friend?: No Do you have trouble with day-to-day activities such as bathing, preparing meals, shopping, managing finances, etc.?: No Are you currently unemployed and looking for a job?: No Are you interested in more education?: No Please select the resources that you would like help with: None Currently or been in a relationship where the following occur: no concerns reported THRIVE Score: 0 AUDIT C Alcohol Use Questionnaire (AUDIT-C) 1. How often do you have a drink containing alcohol?: Never Total Score: 0 Score Reviewed/Action Taken: No DANA-7 AMB Questionnaire DANA-7 Date DANA - 7 assessed: 12/20/23 Feeling nervous, anxious, or on edge: 1 = Several days Not being able to stop or control worryin = Not at all Worrying too much about different things: 0 = Not at all Trouble relaxin = Not at all Being so restless that it is hard to sit still: 0 = Not at all Becoming easily annoyed or irritable: 0 = Not at all Feeling afraid as if something awful might happen: 0 = Not at all Total DANA-7 score (0-4 normal; 5-9 mild; 10-14 moderate; 15-21 severe): 1 Source: Developed by Drs. Freeman Herring, Clementina Molina, Devaughn Davies and colleagues, with an educational aries from [employer]. DANA-7 Assessment Billing DANA-7 Assessment Tool: DANA-7 Assessment 57466 Review of Systems Const All systems reviewed & are unremarkable except as noted in HPI and below Eyes Reports no additional complaints, Denies change in vision and Denies other visual disturbances Card Denies chest pain at rest, Denies chest pain with activity, Denies edema, Denies irregular heart rhythm, Denies claudication, Denies dyspnea, Denies dyspnea on exertion, Denies orthopnea, Denies paroxysmal nocturnal dyspnea and Denies slow heart rate Resp Denies cough, Denies dyspnea and Denies dyspnea on exertion GI Denies abdominal pain, Denies change in bowel habits, Denies excessive flatus, Denies nausea and Denies vomiting Denies urinary incontinence, Denies urinary hesitancy and Denies urinary urgency Musc Denies abnormal gait, Denies atrophy, Denies deformity and Denies limited range of motion Skin/Breast Denies bleeding lesions, Denies changing lesions and Denies rash Neuro Denies abnormal gait, Denies behavioral changes and Denies lack of coordination Psych Denies behavioral changes Physical exam (Primary Care) Vital Signs: Last Vital Signs BP 108/70 12/20/23 07:38 BMI result Body Mass Index 24.6 Tobacco/Smoking Status: Tobacco use Status Tobacco use date assessed 12/20/23 12/20/23 07:44 Patient Tobacco Use Status Never used Tobacco 12/20/23 07:44 e-Cigarette/Vaping Use Never Used 12/20/23 07:44 PHQ-9: PHQ-9 Score PHQ-9: Total score 0 12/20/23 07:44 Depression Screening Interpretation: Negative Thrive Assessment: Date of Thrive Assessment Date Thrive assessed 12/20/23 12/20/23 07:44 Currently or been in a relationship where the following occur: no concerns reported Eyes General: appearance normal, both eyes and all related structures Eyelids: Yes eyelids normal Conjunctivae: conjunctivae normal Neck Neck: Yes normal visual inspection and Yes supple Resp Effort & Inspection: normal respiratory effort Auscultation: clear to auscultation bilaterally Cardio Jugular venous distension: no JVD Rate: regular rate Rhythm: regular rhythm Heart sounds: S1 normal heart sound present and S2 normal heart sound present Extrem General: Yes full ROM Assessment and Plan Assessment & Plan (1) Dyslipidemia: Code(s): E78.5 - Hyperlipidemia, unspecified Plan: Continue low-cholesterol diet. Repeat lipid panel. (2) Vitamin D deficiency: Code(s): E55.9 - Vitamin D deficiency, unspecified Plan: Repeat vitamin-D levels. (3) Graves' disease in remission: Code(s): E05.00 - Thyrotoxicosis with diffuse goiter without thyrotoxic crisis or storm Plan: Last TSH was normal. Follow-up with endocrinology as needed. (4) Degenerative cervical disc: Comment: c-5,c-6. c6-c7 disc levels ventral and posterior spodylosis Code(s): M50.30 - Other cervical disc degeneration, unspecified cervical region Plan: Continue meloxicam as needed. Orders: Orders Lipid Panel Today E78.5 - Hyperlipidemia, unspecified Comprehensive [place]. Panel Fast Today E78.5 - Hyperlipidemia, unspecified Vitamin D 25-OH Total Today E55.9 - Vitamin D deficiency, unspecified, E78.5 - Hyperlipidemia, unspecified Coding Level of Care Code Est Pt Level 4 (76397) Diagnoses Dyslipidemia E78.5 Vitamin D deficiency E55.9 Graves' disease in remission E05.00 Degenerative cervical disc M50.30 Additional Codes DANA-7 Assessment Billing - DANA-7 Assessment Tool: DANA-7 Assessment 26852 ([id number]) Time Spent (min) 21
[2023-12-20 07:38] VITALS: BP 108/70; BMI 24.6
== END 2023-12-20 08:04 | disposition home or self-care (01) ==
PROVIDERS: PCP Internal Medicine; Visit Provider Internal Medicine
DX: E78.5 Hyperlipidemia, unspecified (principal); E55.9 Vitamin D deficiency, unspecified; E05.00 Thyrotoxicosis with diffuse goiter without thyrotoxic crisis or storm; M50.30 Other cervical disc degeneration, unspecified cervical region
CPT/HCPCS: 99214

== ENCOUNTER 2024-04-23 16:33 | Outpatient (AMB) | payer OTHER, SELFPAY ==
--- NOTE | 2024-04-23 16:42 | MHC.PC.OV ---
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 Mammogram done 2022 was normal. Colonoscopy done 2018 was normal. Denies any chest pain or shortness on breath. Had hysterectomy therefore no need for Pap. [facility] Medical History Strain of cervical portion of both trapezius muscles Cervicalgia Sprain of cervical neck Tinea corporis Irritant dermatitis Headache Paronychia of great toe Onychomycosis Palpitations Dizziness Tinea cruris Genital HSV Overweight (BMI 25.0-29.9) Ulnar neuropathy Vitamin D deficiency Hyperthyroidism Dyslipidemia GERD (gastroesophageal reflux disease) Goiter Graves' disease in remission Surgical History History of breast biopsy History of hysterectomy Family History (Updated 04/23/24 @ 16:56 by Karlene Maxwell MD) Father Hypertension BPH (benign prostatic hyperplasia) Mother Diabetes mellitus Paternal Grandfather Prostate cancer Paternal Uncle Prostate cancer Paternal Aunt Colon cancer Liver cancer Brother Myocardial infarct Substance abuse Social History Housing: House Alcohol intake: never Patient Tobacco Use Status: Never used Tobacco e-Cigarette/Vaping Use: Never Used Second Hand Smoke Exposure: No service: No Current occupational status: employed 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 rFeeman Herring, Clementina Molina, Devaughn Davies and colleagues, with an educational aries from [employer]. Review of Systems Const All systems reviewed & are unremarkable except as noted in HPI and below Card Denies chest pain at rest, Denies chest pain with activity, Denies edema, Denies irregular heart rhythm, Denies claudication, Denies dyspnea, Denies dyspnea on exertion, Denies orthopnea, Denies paroxysmal nocturnal dyspnea and Denies slow heart rate Resp Denies cough, Denies dyspnea and Denies dyspnea on exertion GI Denies abdominal pain, Denies change in bowel habits, Denies excessive flatus, Denies nausea and Denies vomiting Denies urinary incontinence, Denies urinary hesitancy and Denies urinary urgency Musc Denies abnormal gait, Denies atrophy, Denies deformity and Denies limited range of motion Skin/Breast Denies bleeding lesions, Denies changing lesions and Denies rash Neuro Denies abnormal gait, Denies behavioral changes and Denies lack of coordination Psych Denies behavioral changes Physical exam (Primary Care) Vital Signs: Last Vital Signs Pulse 80 04/23/24 16:47 BP 100/68 04/23/24 16:47 Pulse Ox 97 04/23/24 16:47 Oxygen Delivery Method Room Air 04/23/24 16:47 BMI result Body Mass Index 25.7 Tobacco/Smoking Status: Tobacco use Status Tobacco use date assessed 12/20/23 04/23/24 16:43 Patient Tobacco Use Status Never used Tobacco 04/23/24 16:43 e-Cigarette/Vaping Use Never Used 04/23/24 16:43 Thrive Assessment: Date of Thrive Assessment Date Thrive assessed 12/20/23 04/23/24 16:43 HENUT Head: Yes normal to inspection, Yes normocephalic and Yes atraumatic Ears: external ears normal Eyes General: appearance normal, both eyes and all related structures Eyelids: Yes eyelids normal Conjunctivae: conjunctivae normal Neck Neck: Yes normal visual inspection and Yes supple Resp Effort & Inspection: normal respiratory effort Auscultation: clear to auscultation bilaterally Cardio Jugular venous distension: no JVD Rate: regular rate Rhythm: regular rhythm Heart sounds: S1 normal heart sound present and S2 normal heart sound present GI Inspection: Yes normal to inspection Palpation (GI): Soft to palpation and nontender Auscultation: normal bowel sounds Skin General skin exam: no rashes or lesions noted Neuro General: no focal motor deficits Extrem General: Yes full ROM Psych Appearance: grossly normal Assessment and Plan Assessment & Plan (1) Annual physical exam: Code(s): Z00.00 - Encounter for general adult medical examination without abnormal findings Plan: Repeat in a year. Orders: Orders Vitamin D 25-OH Total Today E55.9 - Vitamin D deficiency, unspecified Comprehensive [place]. Panel Fast Today Z00.00 - Encounter for general adult medical examination without abnormal findings Thyroid Stimulating Hormone Today E05.90 - Thyrotoxicosis, unspecified without thyrotoxic crisis or storm Free T4 (Free Thyroxine) Today E05.90 - Thyrotoxicosis, unspecified without thyrotoxic crisis or storm Lipid Panel Today Z00.00 - Encounter for general adult medical examination without abnormal findings Coding Level of Care Code Est Pt Prev Care 40-64y(98580) Diagnoses Annual physical exam Z00.00 Time Spent (min) 30
[2024-04-23 16:47] VITALS: BP 100/68; PULSE 80; O2SAT 97; BMI 25.7
== END 2024-04-23 17:01 | disposition home or self-care (01) ==
PROVIDERS: PCP Internal Medicine; Visit Provider Internal Medicine
DX: Z00.00 Encounter for general adult medical examination without abnormal findings (principal)
CPT/HCPCS: 99396

== ENCOUNTER 2024-08-20 13:59 | Outpatient (AMB) | payer OTHER, SELFPAY ==
--- NOTE | 2024-08-20 14:01 | MHC.PC.OV ---
Vital Signs 08/20/24 14:09 Height 5 ft 1 in Weight 132 lb 7.712 oz BMI 25.0 BP 120/80 Blood Pressure Location Lt brachial Position Sitting Intake Visit Reasons: small cyst on the left side clavicle area Saddle Stitcher Required: No Accompanied by: Self / Same As Patient Allergies No Known Allergies Allergy (Verified 08/20/24 14:17) Medication List - Last Reconciled 08/20/24 by Karlene Maxwell MD estradiol 1 patch transdermal 2XW meloxicam 15 mg PO DAILY Tobacco use date assessed: 12/20/23 Dental Screening Dental Screen Date: 08/20/24 Did you have a dental visit in the last 12 months?: Yes Did you have a dental problem in the last 6 months where you did not have access to dental care?: No Was dental information given to patient?: Patient has dentist HPI HPI Comments History of Present Illness Details This is a 59-year-old female that has a skin lesion in right clavicle that has been present for a year. It is sometimes tender. Will be referred to Dermatology for that matter. [facility] Medical History (Updated 08/20/24 @ 14:23 by Karlene Maxwell MD) Strain of cervical portion of both trapezius muscles Cervicalgia Sprain of cervical neck Tinea corporis Irritant dermatitis Headache Paronychia of great toe Onychomycosis Palpitations Dizziness Tinea cruris Genital HSV Overweight (BMI 25.0-29.9) Ulnar neuropathy Vitamin D deficiency Hyperthyroidism Dyslipidemia GERD (gastroesophageal reflux disease) Goiter Graves' disease in remission Surgical History History of breast biopsy History of hysterectomy Family History Father Hypertension BPH (benign prostatic hyperplasia) Mother Diabetes mellitus Paternal Grandfather Prostate cancer Paternal Uncle Prostate cancer Paternal Aunt Colon cancer Liver cancer Brother Myocardial infarct Substance abuse Social History Housing: House Alcohol intake: never Patient Tobacco Use Status: Never used Tobacco e-Cigarette/Vaping Use: Never Used Second Hand Smoke Exposure: No service: No Current occupational status: employed 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 Current occupational exposures/hazards: No Cognitive needs: No Hearing needs: No Vision needs: Yes Questionnaire Thrive Questionnaire Date Thrive assessed: 12/20/23 DANA-7 AMB Questionnaire DANA-7 Date DANA - 7 assessed: 12/20/23 Feeling nervous, anxious, or on edge: 1 = Several days Not being able to stop or control worryin = Not at all Worrying too much about different things: 0 = Not at all Trouble relaxin = Not at all Being so restless that it is hard to sit still: 0 = Not at all Becoming easily annoyed or irritable: 0 = Not at all Feeling afraid as if something awful might happen: 0 = Not at all Total DANA-7 score (0-4 normal; 5-9 mild; 10-14 moderate; 15-21 severe): 1 Source: Developed by Drs. Freeman Herring, Clementina Molina, Devaughn Davies and colleagues, with an educational aries from [employer]. DANA-7 Assessment Billing DANA-7 Assessment Tool: DANA-7 Assessment 55083 Review of Systems Const All systems reviewed & are unremarkable except as noted in HPI and below Card Denies chest pain at rest, Denies chest pain with activity, Denies edema, Denies irregular heart rhythm, Denies claudication, Denies dyspnea, Denies dyspnea on exertion, Denies orthopnea, Denies paroxysmal nocturnal dyspnea and Denies slow heart rate Resp Denies cough, Denies dyspnea and Denies dyspnea on exertion GI Denies abdominal pain, Denies change in bowel habits, Denies excessive flatus, Denies nausea and Denies vomiting Skin/Breast Reports lesions Physical exam (Primary Care) Vital Signs: Last Vital Signs BP 120/80 08/20/24 14:09 BMI result Body Mass Index 25.0 Tobacco/Smoking Status: Tobacco use Status Tobacco use date assessed 12/20/23 08/20/24 14:04 Patient Tobacco Use Status Never used Tobacco 08/20/24 14:04 e-Cigarette/Vaping Use Never Used 08/20/24 14:04 Thrive Assessment: Date of Thrive Assessment Date Thrive assessed 12/20/23 08/20/24 14:04 Resp Effort & Inspection: normal respiratory effort Auscultation: clear to auscultation bilaterally Cardio Jugular venous distension: no JVD Rate: regular rate Rhythm: regular rhythm Heart sounds: S1 normal heart sound present and S2 normal heart sound present Skin Lesions: lesion noted Extrem General: Yes full ROM Office Procedures Flu Questionnaire Does the patient have a severe egg allergy?: No Immunizations Fluarix Triv [id number] (PF) 45 mcg (15 mcg x 3)/0.5 mL IM syringe Performing Provider: Karlene Maxwell MD [place] [facility] Documented (not given) by: TEQUILA Najera on 08/20/24 14:14 Reason Not Given: Patient Refused Coding Level of Care Code Est Pt Level 3 (60762) Complex EM visit Add On G2211 Diagnoses Skin lesion L98.9 Additional Codes DANA-7 Assessment Billing - DANA-7 Assessment Tool: DANA-7 Assessment 58378 ([id number]) Time Spent (min) 19 Assessment & Plan Assessment & Plan (1) Skin lesion: Code(s): L98.9 - Disorder of the skin and subcutaneous tissue, unspecified Category: Medical Plan: Referred to dermatology. Orders: Orders Influenza [id number] Immunization Today Z23 - Encounter for immunization Referrals Dermatology Referral L98.9 - Disorder of the skin and subcutaneous tissue, unspecified
[2024-08-20 14:09] VITALS: BP 120/80; BMI 25.0
== END 2024-08-20 14:28 | disposition home or self-care (01) ==
LOC: HO.HMCH 14:00
PROVIDERS: PCP Internal Medicine; Visit Provider Internal Medicine
DX: Z23 Encounter for immunization (principal); L98.9 Disorder of the skin and subcutaneous tissue, unspecified

== ENCOUNTER 2024-08-20 14:30 | Outpatient (REF) | payer OTHER, SELFPAY ==
--- NOTE | ~2024-08-20 | MM_ITS ---
EXAMINATION: MM SCREENING DIGITAL BREAST TOMOSYNTHESIS, BILATERAL CLINICAL INFORMATION: Screening. Asymptomatic. COMPARISON: Mammography: Comparison is made with available priors TECHNIQUE: Digital breast mammography with tomosynthesis is performed in both the craniocaudal and mediolateral oblique views along with computer-aided detection (CAD). FINDINGS: There are scattered areas of fibroglandular density (ACR BI-RADS breast composition Category b). There are no significant masses, abnormal calcifications, or other abnormalities. MM/MM tomosynthesis screening BI IMPRESSION: No mammographic evidence of malignancy. ASSESSMENT: BI-RADS BI-RADS 1 - Negative RECOMMENDATION: Routine annual mammography screening. 1 year F/U This examination should not preclude the clinical evaluation of a suspicious palpable abnormality. This patient's information was entered into a reminder system with a target due date for their next mammogram. Electronically signed by: Sonja Dimas DO 08/28/2024 03:14 PM CHYNA
== END 2024-08-20 14:31 | disposition home or self-care (01) ==
LOC: HO.MAMMO 14:30
PROVIDERS: PCP Internal Medicine; Visit Provider Internal Medicine
DX: L98.9 Disorder of the skin and subcutaneous tissue, unspecified (principal); Z28.21 Immunization not carried out because of patient refusal; Z12.31 Encounter for screening mammogram for malignant neoplasm of breast
CPT/HCPCS: 77063; 77067; 90471; 96127; 99212

== ENCOUNTER → 2024-08-20 16:00 | Outpatient (BNV) | payer OTHER, SELFPAY | PROVIDERS: PCP Internal Medicine; Visit Provider Internal Medicine | DX: Z12.31 Encounter for screening mammogram for malignant neoplasm of breast (principal) | CPT/HCPCS: 77063; 77067 ==

== ENCOUNTER 2024-09-20 13:44 | Outpatient (AMB) | payer OTHER, SELFPAY ==
[2024-09-20 14:13] VITALS: BP 118/80; PULSE 94; O2SAT 98; BMI 25.3
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
--- OUTSIDE RECORDS SUMMARY | 2024-09-25 10:12 | XMS_ITS | Continuity of Care Document ---
Author Organization [facility] ter Address [address] [place] [address]- Care Team Providers Care Loader Technician Name Role Phone Patrice Maxwell MD, Karlene Raymundo Primary Care Physician Encounter [facility] Date(s): 09/17/24 - 09/18/[address] [address]- Encounter Diagnosis Osteoarthritis(Final) - 09/18/24 Musculoskeletal strain(Final) - 09/18/24 Discharge Disposition: A-D/C Home Attending Physician: Zbigniew Leal MD Admitting Physician: Zbigniew Leal MD Referring Physician: Not on Staff, Referring MD Encounter Type: Disch ES Allergies, Adverse Reactions, Alerts No Known Allergies Medications acetaminophen 500 mg oral tablet 1 tablet = 500 mg, By Mouth, 4 times a day, PRN as needed for pain, for 7 days, # 28 tablet, 0 Refills, Acute 09/25/24 5:37:00 AM EST, 09/18/24 5:37:00 AM EST, Tablet, [facility]/pharmacy #[id number], Partial fillupon patient request if the prescription is for a schedule II opioid drug., 155, cm, 09/17/24 21:31:00 EST, Height, 61.5, kg, 09/17/24 21:31:00 EST, Dry Weight Start Date: 09/18/24 Stop Date: 09/25/24 Status: Ordered Quantity: 28.0 Unit: tablet Repeat number: 1 cyclobenzaprine 7.5 mg oral tablet 1 tablet = 7.5 mg, By Mouth, 3 times a day, PRN for spasm, for 3 days, # 9 tablet, 0 Refills, Acute09/21/24 5:37:00 AM EST, 09/18/24 5:37:00 AM EST, Tablet, [facility]/pharmacy #[id number], Partial fill upon patient request if the prescription is for a schedule II opioid drug., 155, cm, 09/17/24 21:31:00 EST, Height, 61.5, kg, 09/17/24 21:31:00 EST, Dry Weight Start Date: 09/18/24 Stop Date: 09/21/24 Status: Ordered Quantity: 9.0 Unit: tablet Repeat number: 1 Daily Multiple Vitamins 1 tablet, By Mouth, Daily, 0 Refills, Maintenance, 05/24/13 3:46:03 PM EDT Start Date: 05/24/13 Status: Ordered Repeat number: 1 Dilaudid Inj 1 mg, Injection, IV Push Slowly, Once, STAT, 09/18/24 12:36:00 AM EST, Stop date 09/18/24 1:05:14 AM EST Start Date: 09/18/24 Stop Date: 09/18/24 Status: Completed Repeat number: 1 Estradiol 0 Refills, Maintenance, 04/06/18 11:40:17 AM EDT Start Date: 04/06/18 Status: Ordered Repeat number: 1 lidocaine 5% topical film 1 patch, Topically, Daily, PRN Pain , Mild, for 13 days, remove after 12 hours, # 13 each, 0 Refills, Acute 10/01/24 5:37:00 AM EST, 09/18/24 5:37:00 AM EST, Film, [facility]/pharmacy #[id number], Partial fill upon patient request if the prescription is for a schedule II opioid drug., 1 patch Topically Daily,[id number],PRN:Pain , Mild,Instr:remove after 12 hours, 155, cm, 09/17/24 21:31:00 EST, Height, 61.5, kg,09/17/24 21:31:00 EST, Dry Weight Start Date: 09/18/24 Stop Date: 10/01/24 Status: Ordered Quantity: 13.0 Unit: each Repeat number: 1 Problem List Condition Confirmation Course Effective Dates Status Health St atus Informant Urinary incontinence in female Confirmed Active Results Radiology Reports * Exam Date Time Procedure Performing Provider Status 09/18/24 3:38 AM Shoulder Min 2 Views Left [facility] Gerri r; Auth (Verified) Notes: (Shoulder Min 2 Views Left) Reason For Exam: GH joint tenderness, No deformity, Full AROM evaluate for fracture or degenerative changes;Pain RESULT: Shoulder Min 2 Views Left Shoulder Min 2 Views Left, 2 views Hx of Present Illness: Coming from home, had laser collagen resurfacing procedure today in [place] and has developed bilat shoulder pain rad down bilat arms with some slight tingling x 2 hours ago with norelief by tylenol.; Reason: Pain; GH joint tenderness, No deformity, Full AROM evaluate for fracture or degenerative changes; Clinical Question(s): Fracture COMPARISON: None. FINDINGS: No fracture or dislocation. No arthritic change of the glenohumeral joint. Normal AC joint and portions of the clavicle included on the exam. No calcification of the rotator cuff. IMPRESSION: No acute osseous abnormality is seen involving the left shoulder. WSN: [id number] Ordering Physician: Brayan Paulino Dictated By: Vicente White MD, V Dictated Date/Time: 09/18/24 7:41 am Reviewed By: Vicente White MD, V Signed By: Vicente White MD, V Signed Date/Time: 09/18/24 7:41 am Transcribed By: ZULY Transcribed Date/Time: 09/18/24 7:41 am * Exam Date Time Procedure Performing Provider Status 09/18/24 3:38 AM Chest 2 Views Frontal and Lat Ryann Medina; Megan (Verified) Notes: (Chest 2 Views Frontal and Lat) Reason For Exam: Shortness of Breath RESULT: Chest 2 Views Frontal and Lat Chest 2 Views Frontal and Lat Hx of Present Illness: Coming from home, had laser collagen resurfacing procedure today in [place] and has developed bilat shoulder pain rad down bilat arms with some slight tingling x 2 hours ago with norelief by tylenol.; Reason: Shortness of Breath; Clinical Question(s): Pneumonia COMPARISON: None. FINDINGS: LINES AND TUBES: None. LUNGS AND PLEURA: Clear lungs. Normal pulmonary vascularity. No pleural effusion. No pneumothorax. HEART, MEDIASTINUM AND PHIL: Heart is normal in size. Normal mediastinal and hilar contour. BONES AND SOFT TISSUES: No acute abnormality. Mild degenerative change both shoulders. Calcific tendinitis and or bursitis right shoulder. IMPRESSION: No acute abnormality. WSN: [id number] Ordering Physician: Brayan Paulino Dictated By: Vicente White MD, V Dictated Date/Time: 09/18/24 7:40 am Reviewed By: Vicente White MD, V Signed By: Vicente White MD, V Signed Date/Time: 09/18/24 7:40 am Transcribed By: ZULY Transcribed Date/Time: 09/18/24 7:38 am Vital Signs Most recent to oldest [Reference Range]: 1 2 3 Height 155 cm (09/18/24 5:52 AM) 155 cm (09/17/24 9:31 PM) 155 cm (09/17/24 7:46 PM) Weight 61.5 kg (09/18/24 5:52 AM) 61.5 kg (09/17/24 9:31 PM) 61.5 kg (09/17/24 7:46 PM) Oxygen Saturation [94-100 %] 99 % (09/18/24 5:52 AM) 99 % (09/18/24 12:08 AM) 100 % (09/17/24 7:46 PM) Pulse Rate [55-90 bpm] 86 bpm (09/18/24 5:52 AM) 83 bpm (09/18/24 12:08 AM) 72 bpm (09/17/24 7:46 PM) Body Mass Index [18.5-24.99 kg/m2] 25.6 kg/m2 *H* (09/17/24 7:46 PM) Blood Pressure [90-138/55-84 mm Hg] 133/70mm Hg (09/18/24 5:52 AM) 121/56mm Hg (09/18/24 12:08 AM) 116/65mm Hg (09/17/24 7:46 PM) Respiratory Rate [16-30 br/min] 17 br/min (09/18/24 5:52 AM) 18 br/min (09/18/24 12:59 AM) 17 br/min (09/17/24 7:46 PM) Temperature [96.8-100.4 DegF] 97.8 DegF (09/18/24 12:08 AM) 97.5 DegF (09/17/24 7:46 PM) Mode of Delivery (Oxygen) Room air (09/18/24 5:52 AM) Room air (09/18/24 12:08 AM) Room air (09/17/24 7:46 PM) Blood pressure sites Arm, left (09/17/24 7:46 PM) Temperature Route Oral (09/18/24 12:08 AM) Oral (09/17/24 7:46 PM) Dry Weight 61.5 kg (09/18/24 5:52 AM) 61.5 kg (09/17/24 9:31 PM) 61.5 kg (09/17/24 7:46 PM) Weight Obtained Via Standing scale (09/17/24 7:46 PM) Dry Weight Obtained Via Standing scale (09/17/24 7:46 PM) Social History Social History Type Response Smoking Status Never smoker entered on: 04/06/18 Sex Sex Representation Female (finding) EKG study * Event Display: ECG 12-Lead Authored Date: Please click on pdf link to open report * Event Display: ECG 12-Lead Authored Date: Ventricular Rate: 65 BPM Atrial Rate: 65 BPM P-R Interval: 126 ms QRS Duration: 96 ms Q-T Interval: 434 ms QTC Calculation(Bazett): 451 ms P [place]: 35 degrees R [place]: 49 degrees T [place]: 65 degrees Normal sinus rhythm Normal ECG No previous ECGs available Confirmed by FRED DUGAN MD ([id number]) on 09/18/2024 7:43:47 AM [place]: FRED DUGAN MD * Event Display: EKG Authored Date: Patient Care team information Care Team Personnel Name: Patrice Maxwell MD , Karlene Raymundo Position: Reference Physician Member Role: PCP Address: [address] [place] [address] [address] [place], [place] [address] Telecom: Care Team Related Persons Name: JOEL ACUNA Name: OCTAVIA GRIGGS Insurance Providers Guarantor name: MICHAEL DAVIS Health Plan Information #: 1 Payer: SELF PAY INSURANCE Member Number: [id number] Policy Number: NA Group Number: NA Health Plan Information #: 2 Payer: [employer] Member Number: [id number] Policy Number: NA Group Number: NA
--- OUTSIDE RECORDS SUMMARY | 2024-09-25 10:12 | XMS_ITS | Continuity of Care Document ---
Author Organization [facility] Address [address] [place] [address] [address] [place] [address] Phone Care Team Providers Care Ciaio Counter Molder Name Role Phone Juan CHUN, JOSE FRANCISCO, Freeman ROBLES Unavailable U navailable Allergies, Adverse Reactions, Alerts Substance Reaction Status Criticality No Known Allergies Active No Inform ation Procedures Procedure Date Offic Cons New/estab Mod 40 Mi- CT & [place] Surgical Stockings CVR Reveal Thigh High - Duplex Scan-extrem Veins; Comp- CT & [place] Advance Directives Directive Yes / No Effective Date File Name No Information Encounters Encounter Description Practice Location Reason(s) For Visit Diagnoses Date Provider Providers Copied on Encounter [facility], [address] [place] [address] [address], [id number], tel:[phone] CVR - [place] No Information Sep- 4 Juan CHUN, MARGARET FELTON. [address] [facility] [address], [place], [place], [id number] , [place]. tel:[phone] Offic Cons New/estab Mod 40 Mi- [place] & [place] [facility], [address] [place] [address] [address], [id number], tel:[phone] CVR - [place] - [place] Pain in right lower legPain in left lower legPain in right legPain in left legRestless legs syndromeVenous insufficiency (chronic) (peripheral)Pru ritus, unspecifiedCram p and spasmLocalized edema 4 Juan CHUN, JOSE FRANCISCO, MARGARET Millard. [address] [facility], [address], [place], [id number] , [place]. tel:[phone] [facility], [address] [facility] [address], [place], [id number], [place] tel:[phone] CVR - [facility] Chronic venous hypertension (idiopathic) with other complications of bilateral lower extremity 4 Juan CHUN RVT, MARGARET Millard. [address] [facility], [address], [place], [id number] , [place]. tel:[phone] Referring Provider: Freeman Martinez MD, JOSE FRANCISCO, AMRGARET, [address] [address], [place], [address] . tel:[phone] Family History Family Member Type Diagnosis Age At Onset No Information Payers Payer name Insurance type Covered democrat ID Authormodesto nolasco(s) [facility] [id number] 0 Social History Type Description Quantity Date Captured Comments Sex Female Smoking Status No Information Chief Complaint And Reason For Visit No Information Reason For Referral Reason For Referral No Information Plan Of Treatment Date Type Action Status Goal Diet education completed Referral Ordered: Weight management: Referral to physician timeframe: 3 Months (related to Body mass index (BMI) 26.0-26.9, adult) ordered Appointment Faith Valdivia BOOKED Appointment Faith Valdivia BOOKED Appointment Faith Valdivia BOOKED Appointment Faith Valdivia BOOKED Appointment Faith Valdivia BOOKED Appointment Faith Valdivia BOOKED Appointment Faith Valdivia BOOKED History Of Present Illness Encounter Date Complaint History Of Prese nt Illness No Information Functional Status Date Functional Assessmen t No Information Instructions Date Instruction Additional Infor jade Patient education booklet given Related to Pain in right lower leg Pre and post instruc tions reviewed and provided Related to Pain in right lower leg Lifestyle education Related to B kiara mass index (BMI) 26.0-26.9, adult Diet education Related to Body mass index (BMI) 26.0-26.9, adult Giving Encouragement to exercise Related to Body mass index (BMI) 26.0-26.9, adult Assessments Type Assessment Date No Information Patient Care Teams Name Effective Dates (start - stop) Status Members No Information
--- OUTSIDE RECORDS SUMMARY | 2024-09-25 10:12 | XMS_ITS | Data Portability ---
Author Organization [facility], [address] Address [address] [place] [address] Assessment No assessment recorded. Plan of Treatment Reminders Order Date Submit Date Provider Last Modified By Organization Details Last Modified Time Details Appointments None recorded. Lab Mycobacteri um tuberculosi s stimulated gamma interferon, qual, blood [address] [facility], [address] [place] [address], [place], [address], 08:07:08 Referral None recorded. Procedures None recorded. Surgeries None recorded. Imaging None recorded. Medication Orders None recorded. Patient TargetsNo targets recorded. Patient Instructions Encounter Date Encounter Id Patient Instructions Last Modified By Organization Details Last Modified Time 01/12/2023 [id number] This physical does not replace the annual physical to be performed by your PCP. There may be additional screening tests that they will perform that we do not in the urgent care setting. Failure to follow up as recommended may result in significant adverse health consequences. ??? If your symptoms worsen or you develop new symptoms that concern you, go to the emergency department for further evaluation. [email or web address] Not available 01/12/2023 09:19:02 Reason for Referral None Reported. Results Created Date Observation Date Name Description Value Unit Range Abnormal Flag Note LastModifiedBy Organization Detail LastModifiedTime 01/13/2001/14/2023 QUANT IFERO N-TB GOLD PLUS quantiferon incubation INCUBA TION PERFOR MED. Not Available [facility] ([facility]) [address] [facility], [place], [address], 01/15/2023 08:07:08 01/13/20 23 01/14/2023 QUANT IFERO N-TB GOLD PLUS quantiferon criteria COMMEN T Quant iFERO N-TB Gold Plus is a quali tativ e indir ect test for M tuber culos is infec tion (incl uding disea se) and is inten ded for use in conju nctio n with risk asses sment , radio graph y, and other medic al and diagn ostic evalu ation s. The Quant iFERO N-TB Gold Plus resul t is deter mined by subtr actin g the Nil value from eithe r TB antig en (Ag) value . The Mitog en tube serve s as a contr ol for the test. Not Available [facility] ([facility]) [address] [place], [address], 01/15/2023 08:07:08 01/13/20 23 01/15/2023 QUANT IFERO N-TB GOLD PLUS quantiferon TB1 Ag value 0.01 IU/mL Not Available [facility] ([facility]) [address] [place], [address], 01/15/2023 08:07:08 01/13/20 23 01/15/2023 QUANT IFERO N-TB GOLD PLUS quantiferon TB2 Ag value 0.00 IU/mL Not Available [facility] ([facility]) [address] [place], [address], 01/15/2023 08:07:08 01/13/20 23 01/15/2023 QUANT IFERO N-TB GOLD PLUS quantiferon nil value 0.01 IU/mL Not Available [facility] ([facility]) [address] [place], [address], 01/15/2023 08:07:08 01/13/20 23 01/15/2023 QUANT IFERO N-TB GOLD PLUS quantiferon mitogen value >10.00 IU/mL Not Available [facility] ([facility]) [address] [place], [address], 01/15/2023 08:07:08 01/13/20 23 01/15/2023 QUANT IFERO N-TB GOLD PLUS quantiferon- TB gold plus NEGATI VE negati ve No respo nse to M doroteo boyd is antig ens detec rosita. Infec tion with M doroteo boyd is is unlik homero, but high risk indiv idual s shoul d be consi dered for addit ional testi ng (ATS/ IDSA/ CDC Clini marcella Pract ice Guide lines , 2017) . The refer ence range is an Antig en minus Nil resul t of <0.35 IU/mL . Chemi lumin escen ce immun oassa y metho dolog y Not Available [facility] ([facility]) [address] [facility], [place], [address], 01/15/2023 08:07:08 Result Notes None recorded. Procedures Surgical History Date Name Laterality Status Provider Name and Address Organization Details Recorded Time 01/13/20 23 OC - Venipuncture Template completed Joy Tad PA - [facility] 01/12/2023 09:16:13 01/13/20 23 OC-UDS Send Out Template DOT completed Joy Tad PA - [facility] 01/12/2023 09:05:46 01/13/20 23 OC-DOT PHYSICAL completed Joy Alvada PA - [facility] 01/12/2023 09:04:57 Imaging Results None recorded. Procedure Notes None recorded. Medical Equipment None Reported. Medications Name Sig Start Date Stop Date Status Note LastModified by Organization Details LastModified Time cyclobenzap rine 10 mg tablet TAKE 1 TABLET BY MOUTH AT BEDTIME active Not Available Not Available No t Available tizanidine 4 mg tablet TAKE 1 TABLET ORALLY 2 TIMES A DAY NEEDED FOR MUSCLE SPASTICIT Y FOR 30 DAYS 01/12 completed Not Available Not Available Not Available Nystop 100,000 unit/gram topical powder APPLY 1 APPLICATI ON TOPICALLY TWICE A DAY active Not Available Not Available No t Available meloxicam 15 mg tablet TAKE 1 TABLET BY MOUTH EVERY DAY active Not Available Not Available No t Available terbinafine HCl 250 mg tablet TAKE 1 TABLET BY MOUTH EVERY DAY active Not Available Not Available No t Available meclizine 25 mg tablet TAKE 1 TABLET BY MOUTH EVERY DAY NEEDED FOR DIZZINESS active Not Available Not Available No t Available nystatin-tr iamcinolone 100,000 unit/g-0.1 % topical cream APPLY 1 APPLICATI ON TOPICALLY TWICE A DAY active Not Available Not Available No t Available hydrocortis one 2.5 % topical cream USE 1 APPL TOPICALLY 2 TIMES A DAY NEEDED FOR SKIN IRRITATIO N active Not Available Not Available No t Available estradiol 0.0375 mg/24 hr semiweekly transdermal patch APPLY 1 PATCH TWICE WEEKLY active Not Available Not Available No t Available clotrimazol e 1 % topical cream USE 1 APPL TOPICALLY 2 TIMES A DAY FOR 4 WEEKS 01/12 completed Not Available Not Available Not Available doxycycline hyclate 100 mg tablet TAKE 1 TABLET BY MOUTH TWICE A DAY FOR 5 DAYS 01/12 completed Not Available Not Available Not Available DentaGel 1.1 % USE DIRECTED BEFORE BEDTIME active Not Available Not Available No t Available diclofenac 1 % topical gel APPLY 2 G TO THE AFFECTED AREA TWICE A DAY TO BOTH KNEES NEEDED. active Not Available Not Available No t Available Antifungal (miconazole ) 2 % topical powder APPLY TO AFFECTED AREA EVERY DAY 01/12 completed Not Available Not Available Not Available Vitals None Recorded Social History None recorded. Functional Status None recorded. Mental Status None recorded. Family History Nothing Reported. Medical History No medical history recorded. Gynecological HistoryNo gynecological history recorded. 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 743177389 Z02.4 History an d physical examination, pre-employment [id number] Z02.1 Health Concerns Section Related Observation LastModified by Organization Detai ls LastModified Time None Recorded Concern Status LastModified by Organization Details LastModified Time None Recorded Advance Directives Directive None Recorded Payers Encounter Date Sequence Insurance Name Policy Number Policy Bansal Covered Member ID Bansal Member ID Guarantor Name 01/12/2023 OC-ESCREEN Faith Valdivia [id number] Faith Valdivia Notes Date Note Type Note Provider Name a nd Address Organization Details Recorded Time 01/12/2023 text/html physical Abiodun ANTONIA Cardoso [address] [place], [address], [place] - [facility] 01/12/2023 09:20:06 OBGyn Episode No OBEpisode recorded.
== END 2024-09-20 14:39 | disposition home or self-care (01) ==
PROVIDERS: PCP Internal Medicine
DX: M50.30 Other cervical disc degeneration, unspecified cervical region (principal); S16.1XXA Strain of muscle, fascia and tendon at neck level, initial encounter

== ENCOUNTER → 2024-09-20 13:44 | Outpatient (BNVA) | payer OTHER, SELFPAY | PROVIDERS: PCP Internal Medicine | DX: M50.30 Other cervical disc degeneration, unspecified cervical region (principal); S16.1XXA Strain of muscle, fascia and tendon at neck level, initial encounter | CPT/HCPCS: 99212 ==

== ENCOUNTER 2024-09-27 08:56 | Outpatient (AMB) | payer OTHER, SELFPAY ==
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
--- OUTSIDE RECORDS SUMMARY | 2024-09-27 08:59 | XMS_ITS | Continuity of Care Document ---
Author Organization [facility] Address [address] [place] [address] [address] [place] [address] Phone Care Team Providers Care Sales Support Coordinator Name Role Phone Juan CHUN, JOSE FRANCISCO, [...] Providers Copied on [facility]counter [facility], [address] [place] [address] [address], [id number], tel:[phone] CV[place] - [place] - [place] No Information Sep- 4 Juan CHUN, MARGARET FELTON. [address] [facility] [address], [place], [place], [id number] , [place]. tel:[phone] Offic Cons New/estab Mod 40 Mi- [place] & [place] [facility], [address] [place] [address] [address], [id number], tel:[phone] [place] Pain in right lower legPain in left lower legPain in right legPain in left legRestless legs syndromeVenous insufficiency (chronic) (peripheral)Pru ritus, unspecifiedCram p and spasmLocalized edema 4 Juan CHUN, JOSE FRANCISCO, MARGARET Millard. [address] [facility], [address], [place], [id number] , [place]. tel:[phone] [facility], [address] [facility] [address], [place], [id number], [place] tel:[phone] CVR - [facility] Chronic venous hypertension (idiopathic) with other complications of bilateral lower extremity 4 Juan CHUN RVT, MARGARET Millard. [address] [facility], [address], [place], [id number] , [place]. tel:[phone] Referring Provider: Freeman Martinez MD, JOSE FRANCISCO, MARGARET, [address] [address], [place], [address] . tel:[phone] Family History Family Member Type Diagnosis Age At Onset No Information Payers Payer name Insurance type Covered alliance party ID Authormodesto nolasco(s) [facility] [id number] Social History Type Description Quantity Date [...]
--- OUTSIDE RECORDS SUMMARY | 2024-09-27 08:59 | XMS_ITS | Data Portability ---
Author Organization [facility], [address] Address [address] [place] [address] Assessment No assessment recorded. Plan of Treatment Reminders Order Date Submit Date Provider Last Modified By Organization Details Last Modified Time Details Appointments None recorded. Lab Mycobacteri um tuberculosi s stimulated gamma interferon, qual, blood 2022 023 [place] [facility], [address] [place] [address], [place], [address], 08:07:08 Referral None recorded. Procedures None recorded. Surgeries None recorded. Imaging None recorded. Medication Orders None recorded. Patient TargetsNo targets recorded. Patient Instructions Encounter Date Encounter Id Patient Instructions Last Modified By Organization Details Last Modified Time 01/12/2023 [id number] This physical does not replace the annual [...] INCUBA TION PERFOR MED. Not Available [facility] ([facility]) [address] [facility], [place], [address], 01/15/2023 08:07:08 01/13/20 23 01/14/2023 QUANT IFERO [...] ol for the test. Not Available [facility] ([facility]) [address] [place], [address], 01/15/2023 08:07:08 01/13/20 23 01/15/2023 QUANT IFERO N-TB GOLD PLUS quantiferon TB1 Ag value 0.01 IU/mL Not Available [facility] ([facility]) [address] [place], [address], 01/15/2023 08:07:08 01/13/20 23 01/15/2023 QUANT IFERO N-TB GOLD PLUS quantiferon TB2 Ag value 0.00 IU/mL Not Available [facility] ([facility]) [address] [place], [address], 01/15/2023 08:07:08 01/13/20 23 01/15/2023 QUANT IFERO N-TB GOLD PLUS quantiferon nil value 0.01 IU/mL Not Available [facility] ([facility]) [address] [place], [address], 01/15/2023 08:07:08 01/13/20 23 01/15/2023 QUANT IFERO N-TB GOLD PLUS quantiferon mitogen value >10.00 IU/mL Not Available [facility] ([facility]) [address] [place], [address], 01/15/2023 08:07:08 01/13/20 23 01/15/2023 QUANT IFERO [...] y metho dolog y Not Available [facility] ([facility]) [address] [facility], [place], [address], 01/15/2023 08:07:08 Result Notes None recorded. Procedures Surgical History Date Name Laterality Status Provider Name and Address Organization Details Recorded Time 01/13/20 23 OC - Venipuncture Template completed Joy Tad PA - [facility] 01/12/2023 09:16:13 01/13/20 23 OC-UDS Send Out Template DOT completed Joy Tad PA - [facility] 01/12/2023 09:05:46 01/13/20 23 OC-DOT PHYSICAL completed Joy Raymond PA - [facility] 01/12/2023 09:04:57 Imaging [...] Diagnosis/Indication Diagnosis SNOMED-CT Code Diagnosis ICD10 Code [id number] [place] [address] [address] 01/12/2023 08:05:46 01/12/2023 09:28:09 Neurologist license medical examination 575401236 Z02.4 History an d physical examination, pre-employment [id number] Z02.1 Health Concerns Section Related Observation LastModified by Organization Detai ls LastModified Time None Recorded Concern Status LastModified by Organization Details LastModified Time None Recorded Advance Directives Directive None Recorded Payers Encounter Date Sequence Insurance Name Policy Number Policy Banasl Covered Member ID Bansal Member ID Guarantor Name 01/12/2023 OC-ESCREEN Faith Valdivia [id number] Faith Valdivia Notes Date Note Type Note Provider Name a nd Address Organization Details Recorded Time 01/12/2023 text/html physical Aboidun ANTONIA Cardoso [address] [place], [address], [place] - [facility] 01/12/2023 09:20:06 OBGyn Episode No OBEpisode recorded.
[2024-09-27 09:04] VITALS: BP 128/69; PULSE 93; O2SAT 100; BMI 25.6
== END 2024-09-27 09:59 | disposition home or self-care (01) ==
PROVIDERS: PCP Internal Medicine; Visit Provider Nurse Practitioner Family
DX: M50.30 Other cervical disc degeneration, unspecified cervical region (principal); M47.812 Spondylosis without myelopathy or radiculopathy, cervical region; M54.12 Radiculopathy, cervical region
CPT/HCPCS: 99204; G2211

== ENCOUNTER → 2024-09-27 08:56 | Outpatient (BNVA) | payer OTHER, SELFPAY | PROVIDERS: PCP Internal Medicine; Visit Provider Nurse Practitioner Family | DX: M50.30 Other cervical disc degeneration, unspecified cervical region (principal); M47.812 Spondylosis without myelopathy or radiculopathy, cervical region; M54.2 Cervicalgia; M54.12 Radiculopathy, cervical region | CPT/HCPCS: 99202 ==

== ENCOUNTER 2024-10-14 16:46 | Outpatient (RCR) | payer OTHER, SELFPAY | END 2024-11-11 13:34 | disposition home or self-care (01) | LOC: HO.PT 16:46 | PROVIDERS: PCP Internal Medicine | DX: M50.30 Other cervical disc degeneration, unspecified cervical region (principal) | CPT/HCPCS: 97110; 97140; 97162 ==

== ENCOUNTER 2025-03-01 07:02 | Outpatient (REF) | payer OTHER, SELFPAY ==
--- OUTSIDE RECORDS SUMMARY | 2025-03-01 07:05 | XMS_ITS | Data Portability ---
Author Organization [facility], [address] Address [address] [place] [address] Assessment No assessment recorded. Plan of Treatment Reminders Order Date Submit Date Provider Last Modified By Organization Details Last Modified Time Details Appointments None recorded. Lab Mycobacteri um tuberculosi s stimulated gamma interferon, qual, blood 2022 023 [place] [facility], [address] [place] [address], [place], [address], 08:07:08 Referral None recorded. Procedures None recorded. Surgeries None recorded. Imaging None recorded. Medication Orders None recorded. Patient TargetsNo targets recorded. Patient Instructions Encounter Date Encounter Id Patient Instructions Last Modified By Organization Details Last Modified Time 01/12/2023 [id number] This physical does not replace the annual [...] INCUBA TION PERFOR MED. Not Available [facility] ([facility]) [address] [facility], [place], [address], 01/15/2023 08:07:08 01/13/20 23 01/14/2023 QUANT IFERO [...] ol for the test. Not Available [facility] ([facility]) [address] [place], [address], 01/15/2023 08:07:08 01/13/20 23 01/15/2023 QUANT IFERO N-TB GOLD PLUS quantiferon TB1 Ag value 0.01 IU/mL Not Available [facility]) [address] [place], [address], 01/15/2023 08:07:08 01/13/20 23 01/15/2023 QUANT IFERO N-TB GOLD PLUS quantiferon TB2 Ag value 0.00 IU/mL Not Available [facility] ([facility]) [address] [place], [address], 01/15/2023 08:07:08 01/13/20 23 01/15/2023 QUANT IFERO N-TB GOLD PLUS quantiferon nil value 0.01 IU/mL Not Available [facility] ([facility]) [address] [place], [address], 01/15/2023 08:07:08 01/13/20 23 01/15/2023 QUANT IFERO N-TB GOLD PLUS quantiferon mitogen value >10.00 IU/mL Not Available [facility] ([facility]) [address] [place], [address], 01/15/2023 08:07:08 01/13/20 23 01/15/2023 QUANT IFERO [...] y metho dolog y Not Available [facility] ([facility]) [address] [facility], [place], [address], 01/15/2023 08:07:08 Result Notes None recorded. Procedures Surgical History Date Name Laterality Status Provider Name and Address Organization Details Recorded Time 01/13/20 23 OC - Venipuncture Template completed Joy Tad PA - [facility] 01/12/2023 09:16:13 01/13/20 23 OC-UDS Send Out Template DOT completed Joy Tad PA - [facility] 01/12/2023 09:05:46 01/13/20 23 OC-DOT PHYSICAL completed Joy Tad PA - [facility] 01/12/2023 09:04:57 Imaging [...] Diagnosis/Indication Diagnosis SNOMED-CT Code Diagnosis ICD10 Code Diagnosis Note [id number] [place] [address] [facility] [address] [place] [address] 01/12/2023 08:05:46 01/12/2023 09:28:09 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 [id number] Z02.4 History an d physical examination, pre-employment [id number] Z02.1 Health Concerns Section Related Observation LastModified by Organization Detai ls LastModified Time None Recorded Concern Status LastModified by Organization Details LastModified Time None Recorded Advance Directives Directive None Recorded Payers Insurance Date Sequence Insurance Name Policy Number Policy Bansal Covered Member ID Bansal Member ID Guarantor Name 01/12/2023 OC-ESCREEN Faith Valdivia [id number] Faith Valdivia Notes Date Note Type Note Provider Name a nd Address Organization Details Recorded Time 01/12/2023 text/html physical Abiodun ANTONIA Cardoso [address] [place], [address], [place] - [facility] 01/12/2023 09:20:06 OBGyn Episode No OBEpisode recorded.
--- OUTSIDE RECORDS SUMMARY | 2025-03-01 07:05 | XMS_ITS | Clinical Summary ---
Author Organization [email or web address] Address [address] [facility] [address] [place] [address] Care Team Providers Care [facility] Torque Tester Name Role Phone Unavailable Primary Care Provider Unavailabl e Immunizations Immunization Administration Dates Next Due Moderna Covid-19 Vaccine 6+ Bivalent 11/07/2022 Social History Tobacco Use Types Packs/Day Years Used Date Smoking Tobacco: Never Assessed Comments Unknown Sex and Gender Information Value Date Recorded Sex Assigned at Female 08/15/2022 10:15 AM EDT Legal Sex Female 10:15 AM EDT Gender Identity Choose not to disclose 10:15 AM EDT Sexual Orientation Choose not to disclose 2021 10:15 AM EDT Plan of Treatment Health Maintenance Due Date Last Done Comments CT Colonography 1967 Colonoscopy 1967 Colorectal Cancer Screening 1967 Depression Screening 1967 FIT DNA/Cologuard 1967 FIT 1967 FOBT 1967 HIV Screening 1967 SDOH Screening 1967 Sigmoidoscopy 1967 Alcohol/Substance Use Screening 1979 Tobacco Screening 1979 Hepatitis C Screening 1985 Pap Smear 1988 Cervical Cancer Screening 1997 HPV/Cotest 1997 Mammogram 2007 Pneumococcal Vaccine: 50+ Years (1 of 1 - PCV) 2017 Zoster Vaccines (1 of 2) 2017 COVID-19 Vaccine ( season) 2024 11/07/2022, 09/17/2021, 11/09/2020, Additional history exists Influenza Vaccine (#1) 2024 07/13/2020 DTaP/Tdap/Td Vaccines (2 - Td or Tdap) 09/18/2025 09/18/2015 RSV Patients and Patients Aged 60 years or older (1 - 1-dose 75+ series) 2042 Hepatitis B Vaccines Completed 04/05/2022, 09/30/2021, 09/25/2020 HIB Vaccines Aged Out No longer eligi ble based on patient's age to complete this topic HPV Vaccines Aged Out No longer eligi ble based on patient's age to complete this topic Hepatitis A Vaccines Aged Out No long er eligible based on patient's age to complete this topic IPV Vaccines Aged Out No longer eligi ble based on patient's age to complete this topic Meningococcal B Vaccine Aged Out No l onger eligible based on patient's age to complete this topic Meningococcal Vaccine Aged Out No daljit chiki eligible based on patient's age to complete this topic RSV under 20 months Aged Out No longe r eligible based on patient's age to complete this topic Rotavirus Vaccines Aged Out No longer eligible based on patient's age to complete this topic Insurance [facility] STANDARD [facility]
--- OUTSIDE RECORDS SUMMARY | 2025-03-01 07:05 | XMS_ITS | Continuity of Care Document ---
Author Organization [facility] Address [address] [place] [address] Phone Care Team Providers Care Citrix Administrator Name Role Phone Minerva Ibarra Unavailable Unavailable Allergies, Adverse Reactions, Alerts Substance Reaction Status Criticality No Known Allergies Active No Inform ation Procedures Procedure Date Duplex Scan-extrem Veins; Uni/ CT & [place] A Inj Scleros Solut; Mx Veins 1- CT & [place] A Ultrason Guidan Needle Bx-rad- CT & [place] A Duplex Scan-extrem Veins; Uni/ CT & [place] A Endovenous Laser, 1st Vein- CT & [place] Endovenous Laser, 1st Vein- CT & [place] Ultrason Guidan Needle Bx-rad- CT & [place] A Inj Sclerosing Solution; Sngl- CT & [place] A Offic Cons New/estab Mod 40 Mi- CT & [place] Surgical Stockings CVR Reveal Thigh High 20-30 Duplex Scan-extrem Veins; Comp- CT & [place] Advance Directives Directive Yes / No Effective Date File Name No Information Encounters Encounter Description Practice Location Reason(s) For Visit Diagnoses Date Provider Providers Copied on Encounter [facility], [address] [place] [address] Dr Cardenas [address], [place], [id number], [place] tel:[phone] [facility] No Information Khadar Palma. [address], [address], [place], [address], [place]. tel:[phone] [facility], [address] [place] [address] [address]Suite [place]jel Sharma [place], [id number], [place] tel:[phone] CVR - [place] - Erhard Encounter for follow-up examination after completed treatment for conditions other than malignant neoplasmVaric ose veins of right lower extremity with pain 5 Juan CHUN RVT, MARGARET Millard. [address], [address], [facility], [place], [id number] , [place]. tel: [phone] Referring Provider: Karlene Ibrahim MD, [address] , [address] [place] D/B/[place]: [place], [address]. tel:[phone] [facility], [address] [place] [address] [address]Anjel [place], [id number], [place] tel:[phone] CVR - [place] - Erhard Varicose veins of right lower extremity with other complications 5 Juan CUHN RVT, MARGARET Millard. [address], [address], [facility], [place], [id number] , [place]. tel: [phone] Referring Provider: Karlene Ibrahim MD, [address] , [address] [place] D/B/A: [place], [address]. tel:[phone] [facility], [address] [place] [address] [address]Anjel [place], [id number], [place] [phone] CVR - [place] - Erhard Encounter for follow-up examination after completed treatment for conditions other than malignant neVaricose veins of left lower extremity with pain 5 Juan CHUN RVT, MARGARET Millard. [address], [address], [facility], [place], [id number] , [place]. tel:[phone] Referring Provider: Karlene Ibrahim MD, [address] , [address] [place] [address] D/B/A: [facility], [address]. tel:[phone] [facility], [address] [place] [address] [address] Anjel Sharma [place], [id number], [place] tel:[phone] CVR - [place] - [place]hard Chronic venous hypertension (idiopathic) with inflammation of left lower extremity Jan- 5 Juan CHUN RVT, MARGARET Millard. [address], [address], [place], [place], [id number] , [place]. tel: [phone] Referring Provider: Karlene Ibrahim MD, [address], [address] [place] [address] D/B/A: [facility], [address]. tel:[phone] [place] [facility], [address] [place] [address] [address] [place]jel Sharma [place], [id number], [place] tel:[phone] CVR - [place] - [place]hard Varicose veins of left lower extremity with other complications Apr- 5 Juan CHUN RVT, MARGARET Millard. [address], [address] [facility], [place], [place], [id number] , [place]. tel:[phone] Referring Provider: Karlene Ibrahim MD, [address], [address] [place] [address] D/B/A: [facility], [address]. tel:[phone] [facility], [address] [place] [address] [address]Anjel [place], [id number], [place] tel:[phone] CVR - [facility] No Information Dec-0 4 Juan CHUN RVT, MARGARET Millard. [address], [address], [place], [place], [id number] , [place]. tel:[phone] Offic Cons New/estab Mod 40 Mi- CT & [place] [facility], [address] [place] [address] [address] [place]jel Sharma [place], [id number], [place] tel:[phone] CVR - [place] - [place]hard Pain in right lower legPain in left lower legPain in right legPain in left legRestless legs syndromeVenou s insufficiency (chronic) (peripheral)P ruritus, unspecifiedCr amp and spasmLocalize d edema 4 Juan CHUN, JOSE FRANCISCO, MARGARET Freeman. [address] [place] [address], [place], [place], [id number] , . tel:[phone] [facility], [address], [place], [id number], tel:[phone] CVR - [place] - [place]hard Chronic venous hypertension (idiopathic) with other complications of bilateral lower extremity 4 Juan CHUN, JOSE FRANCISCO, RPJOSSE Freeman. [address] [place] [address], [place], [place], [id number] , . tel:[phone] Referring Provider: Freeman Martinez MD, JOSE FRANCISCO, MARGARET, [address] [place] [address], [id number]. tel:[phone] Family History Family Member Type Diagnosis Age At Onset No Information Payers Payer name Insurance type Covered democrat ID Estephania nolasco(s) [facility] [id number] Social History Type Description Quantity Date Captured Comments Alcohol Use Details Unknown Caffeine Use Details Unknown Tobacco Use Status No Information Smoking Status No Information Sex Female Chief Complaint And Reason For Visit No [...] No Information Instructions Date Instruction Additional Infor mation Giving Encouragement to exercise Related to Body mass index (BMI) 26.0-26.9, adult Diet education Related to Body mass index (BMI) 26.0-26.9, adult Lifestyle education Related to B kiara mass index (BMI) 26.0-26.9, adult Pre and post instruc tions reviewed and provided Related to Pain in right lower leg Patient education booklet given Related to Pain in right lower leg Assessments Type Assessment Date No Information Patient Care Teams Name Effective Dates (start - stop) Status Members No Information
[2025-03-01 07:17] LABS: MANUAL DIFF FLAG NO
[2025-03-01 07:32] LABS: Basophils Percent Auto 0.4 % (0-2); Eosinophils Absolute Auto 0.1 X10*3/uL (0.0-0.4); Eosinophils Percent Auto 1.8 % (0-4); Hematocrit 39.8 % (37.0-47.0); Hemoglobin 13.5 g/dl (12.0-16.0); Imm Gran Abs Auto 0.01 X10*3/uL (0.00-0.03); Imm Gran Pct Auto 0.2 % (0.0-0.4); Lymphocytes Absolute Auto 1.3 X10*3/uL (1.2-4.9); Lymphocytes Percent Auto 25.5 % (20-40); Mean Corpuscular HGB Conc 33.9 g/dl (31.0-35.0); Mean Corpuscular Hemoglobin 32.2 pg (27.0-33.0); Mean Platelet Volume 9.7 fL (9.4-12.3); Monocytes Absolute Auto 0.4 X10*3/uL (0.1-1.2); Monocytes Percent Auto 7.4 % (2-11); Neutrophils Absolute Auto 3.3 x10*3/uL (2.0-8.3); Neutrophils Percent Auto 64.7 % (45-73); Platelet Count 258 X10*3/uL (160-400); Red Blood Count 4.19 X10*6/uL (4.20-5.50); Red Cell Distribution Width 11.8 % (11.0-16.0)
[2025-03-01 08:03] LABS: Alanine Aminotransferase 34 U/L (0-31); Albumin Level 3.9 g/dL (3.5-5.0); Alkaline Phosphatase 65 U/L (39-117); Anion Gap 10 (12-20); Aspartate Amino Transferase 25 U/L (5-31); Bilirubin Total 0.5 mg/dL (0.0-1.0); Blood Urea Nitrogen 15 mg/dL (9-16); Carbon Dioxide 27 mmol/L (22-29); Chloride 106 mmol/L (96-108); Cholesterol 209 mg/dL (<200); Estimated Glomerular Filt Rate > 60; Glucose Random 93 mg/dL (60-115); HDL Cholesterol 51 mg/dL (>40); Iron 120 mcg/dL (30-160); LDL Cholesterol Calculated 136 mg/dL (<100); Percent Iron Saturation 47 % (15-50); Potassium 3.8 mmol/L (3.3-5.1); Sodium 139 mmol/L (135-145); Total Iron Binding Capacity 253 mcg/dL (228-428); Total Protein 6.8 g/dL (6.5-8.0); Triglycerides 112 mg/dL (<150); Unsaturated Iron Binding 133 ug/dL
[2025-03-01 08:17] LABS: Vitamin D 25-OH Total 39.3 ng/mL (>30)
[2025-03-01 08:34] LABS: Folate 14.3 ng/mL (> or = 4.0); Vitamin B12 470 pg/mL (200-900)
== END 2025-03-01 07:03 | disposition home or self-care (01) ==
LOC: HO.LAB 07:02
PROVIDERS: PCP Internal Medicine; Visit Provider Internal Medicine
DX: Z00.00 Encounter for general adult medical examination without abnormal findings (principal); E53.8 Deficiency of other specified B group vitamins; M17.10 Unilateral primary osteoarthritis, unspecified knee; E05.90 Thyrotoxicosis, unspecified without thyrotoxic crisis or storm; D64.9 Anemia, unspecified; E55.9 Vitamin D deficiency, unspecified
CPT/HCPCS: 36415; 80053; 80061; 82306; 82607; 82746; 83540; 84439; 84443; 85025

== ENCOUNTER 2025-07-08 16:23 | Outpatient (AMB) | payer OTHER, SELFPAY ==
[2025-07-08 16:31] VITALS: BP 122/74; PULSE 78; TEMP 36.2; O2SAT 98; BMI 25.5
--- NOTE | 2025-07-08 16:31 | A.OFFPC_ITS ---
Vital Signs 07/08/25 16:31 Height 5 ft 1 in Weight 135 lb BMI 25.5 BP 122/74 Blood Pressure Location Lt brachial Position Sitting Pulse 78 Pulse Source Pulse Oximeter Temp 97.1 F Temp Source Temporal Artery Scan Pulse Oximetry (%) 98 Oxygen Delivery Method Room Air Intake Visit Reasons: annual exam Body Art Technician Required: No Accompanied by: Self / Same As Patient Allergies No Known Allergies Allergy (Verified 07/08/25 16:45) Medication List - Last Reconciled 07/08/25 by Karlene Maxwell MD cetirizine (Zyrtec) 10 mg PO DAILY PRN estradiol 1 patch transdermal 2XW meloxicam 15 mg PO DAILY multivitamin 1 tab PO DAILY Tobacco use date assessed: 07/08/25 Dental Screening Dental Screen Date: 07/08/25 Did you have a dental visit in the last 12 months?: Yes Did you have a dental problem in the last 6 months where you did not have access to dental care?: No HPI HPI Comments History of Present Illness Details The patient is a 60-year-old female presenting with a wellness check, including discussions on mammography and colonoscopy. The patient has a history of breast biopsy and hysterectomy. Her family history is significant for hypertension in her father and diabetes in both parents. She reports an allergic reaction, the specifics of which are unclear, but she believes it may be exacerbated by environmental factors at home. The patient underwent a colonoscopy, which she describes as a positive experience despite initial discomfort. She reports no significant issues post- procedure. Her cholesterol levels are slightly elevated, but no medication is currently required. [facility] Medical History Strain of cervical portion of both trapezius muscles Cervicalgia Sprain of cervical neck Tinea corporis Irritant dermatitis Headache Paronychia of great toe Onychomycosis Palpitations Dizziness Tinea cruris Genital HSV Overweight (BMI 25.0-29.9) Ulnar neuropathy Vitamin D deficiency Hyperthyroidism Dyslipidemia GERD (gastroesophageal reflux disease) Goiter Graves' disease in remission Surgical History History of breast biopsy History of hysterectomy Family History Father Hypertension BPH (benign prostatic hyperplasia) Mother Diabetes mellitus Paternal Grandfather Prostate cancer Paternal Uncle Prostate cancer Paternal Aunt Colon cancer Liver cancer Brother Myocardial infarct Substance abuse Social History Housing: House Alcohol intake: never Patient Tobacco Use Status: Never used Tobacco e-Cigarette/Vaping Use: Never Used Second Hand Smoke Exposure: No service: No Current occupational status: employed 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 1. Little interest or pleasure in doing things: not at all 2. Feeling down, depressed, or hopeless: not at all 3. Trouble falling or staying asleep, or sleeping too much: not at all 4. Feeling tired or having little energy: not at all 5. Poor appetite or overeating: not at all 6. Feeling bad about yourself - or that you are a failure or have let yourself or your family down: not at all 7. Trouble concentrating on things, such as reading the newspaper or watching television: not at all 8. Moving or speaking so slowly that other people could have noticed. Or the opposite - being so fidgety or restless that you have been moving around a lot more than usual: not at all 9. Thoughts that you would be better off or of hurting yourself in some way: not at all Total score: 0 Depression Screening Interpretation: Negative Depression Screening Done: Yes 39992 - PHQ-9 Billing: Yes Source: Developed by Drs. Freeman Herring, Clementina Molina, Devaughn Davies and colleagues, with an educational aries from [employer]. Thrive Questionnaire Date Thrive assessed: 07/08/25 I am a: Patient What is your living situation today?: I have a steady place to live Within the past 12 months, did the food you bought not last and you didn't have the money to get more?: Never true Within the past 12 months, did you worry whether your food would run out before you got money to buy more?: Never true Do you have trouble paying for medicines?: No Do you have trouble getting transportation to medical appointments?: No Do you have trouble paying your heating and electricity bill?: No Do you have trouble taking care of your child, family member or friend?: No Do you have trouble with day-to-day activities such as bathing, preparing meals, shopping, managing finances, etc.?: No Are you currently unemployed and looking for a job?: No Are you interested in more education?: I choose not to answer this question Please select the resources that you would like help with: None Currently or been in a relationship where the following occur: No concerns reported THRIVE Score: 0 AUDIT C Alcohol Use Questionnaire (AUDIT-C) 1. How often do you have a drink containing alcohol?: Never 3. How often do you have six or more drinks on one occasion?: Never Total Score: 0 Score Reviewed/Action Taken: No DANA-7 AMB Questionnaire DANA-7 Date DANA - 7 assessed: 12/20/23 Feeling nervous, anxious, or on edge: 0 = Not at all Not being able to stop or control worryin = Not at all Worrying too much about different things: 0 = Not at all Trouble relaxin = Not at all Being so restless that it is hard to sit still: 0 = Not at all Becoming easily annoyed or irritable: 0 = Not at all Feeling afraid as if something awful might happen: 0 = Not at all Total DANA-7 score (0-4 normal; 5-9 mild; 10-14 moderate; 15-21 severe): 0 Source: Developed by Drs. Freeman Herring, Clementina Molina, Devaughn Davies and colleagues, with an educational aries from [employer]. DANA-7 Assessment Billing DANA-7 Assessment Tool: DANA-7 Assessment 27455 Review of Systems Const All systems reviewed & are unremarkable except as noted in HPI and below Card Denies chest pain at rest, Denies chest pain with activity, Denies edema, Denies irregular heart rhythm, Denies claudication, Denies dyspnea, Denies dyspnea on exertion, Denies orthopnea, Denies paroxysmal nocturnal dyspnea and Denies slow heart rate Resp Denies cough, Denies dyspnea and Denies dyspnea on exertion GI Denies abdominal pain, Denies change in bowel habits, Denies excessive flatus, Denies nausea and Denies vomiting Physical exam (Primary Care) Vital Signs: Last Vital Signs Temp 97.1 F 07/08/25 16:31 Pulse 78 07/08/25 16:31 BP 122/74 07/08/25 16:31 Pulse Ox 98 07/08/25 16:31 Oxygen Delivery Method Room Air 07/08/25 16:31 BMI result Body Mass Index 25.5 Tobacco/Smoking Status: Tobacco use Status Tobacco use date assessed 07/08/25 07/08/25 16:32 Patient Tobacco Use Status Never used Tobacco 07/08/25 16:32 e-Cigarette/Vaping Use Never Used 07/08/25 16:32 PHQ-9: PHQ-9 Score PHQ-9: Total score 0 07/08/25 16:32 Depression Screening Interpretation: Negative Thrive Assessment: Date of Thrive Assessment Date Thrive assessed 07/08/25 07/08/25 16:32 Currently or been in a relationship where the following occur: No concerns reported HENMT Head: Yes normal to inspection, Yes normocephalic and Yes atraumatic Ears: external ears normal Eyes General: appearance normal, both eyes and all related structures Eyelids: Yes eyelids normal Conjunctivae: conjunctivae normal Neck Neck: Yes normal visual inspection and Yes supple Resp Effort & Inspection: normal respiratory effort Auscultation: clear to auscultation bilaterally Cardio Jugular venous distension: no JVD Rate: regular rate Rhythm: regular rhythm Heart sounds: S1 normal heart sound present and S2 normal heart sound present GI Inspection: Yes normal to inspection Palpation (GI): Soft to palpation and nontender Auscultation: normal bowel sounds Skin General skin exam: no rashes or lesions noted Neuro General: no focal motor deficits Extrem General: Yes full ROM Psych Appearance: grossly normal Coding Level of Care Code Est Pt Prev Care 40-64y(30651) Diagnoses Annual physical exam Z00.00 Additional Codes PHQ-9 - 19371 - PHQ-9 Billing: Yes ([id number]) DANA-7 Assessment Billing - DANA-7 Assessment Tool: DANA-7 Assessment 34415 ([id number]) Time Spent (min) 30 Assessment & Plan Assessment & Plan (1) Annual physical exam: Code(s): Z00.00 - Encounter for general adult medical examination without abnormal findings Category: Medical Plan Plan Patient was informed and verbally consented to the use of an ambient scribe for clinic note documentation during this visit. 1. Encounter for general adult medical examination without abnormal findings Z00.00 The patient has a mammography scheduled for August 22 as part of her preventative care. Medications: Refilled estradiol apply 1 patch for 3 days alternating with 1 patch for 4 days each week 1 patch transdermal 2XW 8 ea 11RF
--- OUTSIDE RECORDS SUMMARY | 2025-07-08 18:41 | XMS_ITS | Patient Health Record ---
Author Organization [facility] Address [address] [place] [address] Care Team Providers Care Package Designer Name Role Phone Po Ag CHUN Primary Care Provider Freeman Pimentel [phone] Reason For Referral No Information Medications Medication SIG (Take, Route, Frequency, Duration) Notes Start Date End Date Status Alive Once Daily Womens 50+ - as directed Orally Active Estradiol 1 MG TAKE 1 TABLET EVERY DAY Oral for 30 Active Multivitamin & Mineral - as directed Ora lly as directed Active ibuprofen - 1 tab Oral NEEDED Active Immunizations Vaccine Route Administration Date Status Comme nts Influenza Unknown 12/25/2018 Refused Social History Tobacco Use: Social History Observation Description Date Details (start date - stop date) Never Smoker NA - NA Tobacco Use/Smoking Question Answer Notes Patient is a nonsmoker Alcohol Screen Question Answer Notes Did you have a drink containing alcohol in the p ast year? No Points 0 Interpretation Negative Section Notes: Nonsmoker; no sig alcohol Problems Problem Type SNOMED Code ICD Code Onset Dates Problem Status W/U Status Risk Notes Problem [id number] Encounter for screening for malignant neoplasm of colon (Z12.11) Active confirmed Problem [id number] Preprocedural examination (Z01.818) Active confirmed Plan Of Treatment Future Test Test Name Order Date COLONOSCOPY 12/25/2018 Insurance Providers Payer Name Payer Address Payer Phone Subscriber Number Group Number Insured Name Patient Relationship to Insured Coverage Start Date Coverage End Date [facility] [employer] [facility] [address] [address] [place], [place] [id number] MICHAEL DAVIS Self - patient is the insured Medical (General) History Medical History History ICD Code Denies SD,DM,CVA,Lung disease,renal dise ase Thyroiditis-sees Dr. Lucio-s/p treatment EGD [place] [address] Ramírez- lucero , mild GERD, duodenitis--gastric biopsies were negative for H.pylori Neg abd U/S in 2013 Surgical History Surgery Date(Month/Year) Partial hysterectomy 2004 Benign left breast biopsy
== END 2025-07-08 17:01 | disposition home or self-care (01) ==
LOC: HO.HMCH 16:24
PROVIDERS: PCP Internal Medicine; Visit Provider Internal Medicine
DX: Z00.00 Encounter for general adult medical examination without abnormal findings (principal)

== ENCOUNTER → 2025-07-08 16:23 | Outpatient (BNVA) | payer OTHER, SELFPAY | PROVIDERS: PCP Internal Medicine; Visit Provider Internal Medicine | DX: Z00.00 Encounter for general adult medical examination without abnormal findings (principal); Z91.09 Other allergy status, other than to drugs and biological substances | CPT/HCPCS: 96127; 99396 ==

== ENCOUNTER 2025-08-13 11:00 | Outpatient (AMB) | payer OTHER, SELFPAY ==
[2025-08-13 11:07] VITALS: BP 100/66; BMI 25.7
--- NOTE | 2025-08-13 11:07 | MHC.OFFVIS ---
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 Currently using estrogen 0.025 mg patch user for several years, had previously used 0.05mg. She reports being okay with taking the same dose that her primary care ordered for the next year. Transferring care and needs refills. Patient brought in records file, items not a scanned. She denies any contraindications to continued estrogen use. History of hysterectomy due to fibroids. Mammogram is up-to-date. [facility] Medical History Strain of cervical portion of both trapezius muscles Cervicalgia Sprain of cervical neck Tinea corporis Irritant dermatitis Headache Paronychia of great toe Onychomycosis Palpitations Dizziness Tinea cruris Genital HSV Overweight (BMI 25.0-29.9) Ulnar neuropathy Vitamin D deficiency Hyperthyroidism Dyslipidemia GERD (gastroesophageal reflux disease) Goiter Graves' disease in remission Surgical History History of breast biopsy History of hysterectomy Family History Father Hypertension BPH (benign prostatic hyperplasia) Mother Diabetes mellitus Paternal Grandfather Prostate cancer Paternal Uncle Prostate cancer Paternal Aunt Colon cancer Liver cancer Brother Myocardial infarct Substance abuse Social History Housing: House Alcohol intake: never Patient Tobacco Use Status: Never used Tobacco e-Cigarette/Vaping Use: Never Used Second Hand Smoke Exposure: No service: No Current occupational status: employed 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, 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 Current occupational exposures/hazards: No Cognitive needs: No Hearing needs: No Vision needs: Yes Female Reproductive History Menstrual Menopause type: surgical Total pregnancies: 3 Full term: 2 Number of Living Children: 2 Date of Mammogram: 08/20/24 (Birad 1) Review of Systems Const All systems reviewed & are unremarkable except as noted in HPI and below Endo Reports no additional complaints Physical Exam Vital Signs: Last Vital Signs BP 100/66 08/13/25 11:07 BMI result Body Mass Index 25.7 Const General: cooperative, healthy appearing and no acute distress Psych Appearance: well kempt Attitude: cooperative Thought process: Normal thought process present Assessment & Plan Assessment & Plan (1) Hot flashes: Code(s): R23.2 - Flushing Plan Discussed: Risks benefits of HRT and continued use. Importance of mammograms yearly and self-breast exam. Advised to report any breast lumps for immediate evaluation. Reviewed correlation with certain types of breast cancer and use of hormones. Schedule annual exam and med check in 3 months to evaluate the estrogen patch and symptoms. The patient expressed understanding and agreement with the plan of care. All of her questions and concerns were addressed to the best of my ability. This note is constructed using voice recognition software. While every effort has been made to ensure accuracy, mechanical maintenance supervisor errors may have been included. Coding Level of Care Code New Pt Level 3 (04261) Diagnoses Hot flashes R23.2
--- OUTSIDE RECORDS SUMMARY | 2025-08-13 13:58 | XMS_ITS | Patient Health Record ---
Author Organization [facility] Address [address] [place] [address] Care Team Providers Care Desk Lieutenant Name Role Phone Po Ag CHUN Primary Care Provider Freeman Pimentel [phone] Reason For Referral No Information Medications Medication SIG (Take, Route, Frequency, Duration) Notes Start Date End Date Status Alive Once Daily Womens 50+ - as directed Orally Active Estradiol 1 MG TAKE 1 TABLET EVERY DAY Oral; Duration: 30 Active Multivitamin & Mineral - as [...] Problem Status W/U Status Risk Notes Problem Screening for malignant neoplasm of colon (901160313) Encounter for screening for malignant neoplasm of colon (Z12.11) Active confirmed Problem Preprocedural examination ([id number]) Preprocedural examination (Z01.818) Active confirmed Plan Of Treatment Future Test Test Name Order Date COLONOSCOPY 12/25/2018 Insurance Providers Payer Name Payer Address Payer Phone Subscriber Number Group Number Insured Name Patient Relationship to Insured Coverage Start Date Coverage End Date [facility] [employer] [facility] [address] [address] [place], [place] [phone] [id number] MICHAEL DAVIS Self - patient is the insured Medical (General) History Medical History History ICD Code Denies [place],DM,CVA,Lung disease,renal dise ase Thyroiditis-sees Dr. Lucio-s/p treatment E[place] [address] Ramírez- lucero HH, mild GERD, duodenitis--gastric biopsies were negative for H.pylori Neg abd U/S in 2013 Surgical History Surgery Date(Month/Year) Partial hysterectomy 2004 Benign left breast biopsy
--- OUTSIDE RECORDS SUMMARY | 2025-08-13 13:58 | XMS_ITS | Clinical Summary ---
Author Organization [employer] Address [address] [facility] [address] [place] [address] Care Team Providers Care Pediatric Geneticist Name Role Phone Unavailable Primary Care Provider [...] Screening 1967 SDOH Screening 1967 Sigmoidoscopy 1967 Disability Screening 1967 Alcohol/Substance Use Screening 1979 Tobacco Screening 1979 Hepatitis C Screening 1985 Pap Smear 1988 Cervical Cancer Screening 1997 HPV/Cotest 1997 Mammogram 2007 Pneumococcal Vaccine: 50+ Years (1 of 1 - PCV) 2017 Zoster Vaccines (1 of 2) 2017 COVID-19 Vaccine (5 - season) 2025 11/07/2022, 09/17/2021, 11/09/2020, Additional history exists Influenza Vaccine (#1) 2025 07/13/2020 DTaP/Tdap/Td Vaccines (2 - Td or [...] patient's age to complete this topic Insurance [facility] [employer] [facility]
--- OUTSIDE RECORDS SUMMARY | 2025-08-13 13:58 | XMS_ITS | Data Portability ---
Author Organization [facility], [address] Address [address] [place] [address] Assessment No assessment recorded. Plan of Treatment Reminders Order Date Submit Date Provider Last Modified By Organization Details Last Modified Time Details Appointments None recorded. Lab Mycobacteri um tuberculosi s stimulated gamma interferon, qual, blood 2022 023 BERN [facility], [address] [place] [address], [place], [address], 08:07:08 Referral None recorded. Procedures None recorded. Surgeries None recorded. Imaging None recorded. Medication Orders None recorded. Patient TargetsNo targets recorded. Patient Instructions Encounter Date Encounter Id Patient Instructions Last Modified By Organization Details Last Modified Time 01/12/2023 [id number] This physical does not replace the annual physical to be performed by your PCP. There may be additional screening tests that they will perform that we do not in the urgent care setting. Failure to follow up as recommended may result in significant adverse health consequences. If your symptoms worsen or you develop new symptoms that concern you, go to the emergency department for further evaluation. [email or web address] Not available 01/12/2023 09:19:02 Reason for Referral None Reported. Results Created Date Observation Date Name Description Value Unit Range Abnormal Flag Note LastModifiedBy Organization Detail LastModifiedTime 01/13/2001/14/2023 QUANT IFERO N-TB GOLD PLUS quantiferon incubation INCUBA TION PERFOR MED. Not Available [facility] ([facility]) [address] [facility], [place], [address], 01/15/2023 08:07:08 01/13/20 23 01/14/2023 QUANT IFERO [...] [facility] ([facility]) [address] [place], [address], 01/15/2023 08:07:08 01/13/20 23 01/15/2023 QUANT IFERO N-TB GOLD PLUS quantiferon TB1 Ag value 0.01 IU/mL Not Available [facility] ([facility]) [address] [place], [address], 01/15/2023 08:07:08 01/13/20 23 01/15/2023 QUANT IFERO N-TB GOLD PLUS quantiferon TB2 Ag value 0.00 IU/mL Not Available [facility] ([facility]) [address] [place], [address], 01/15/2023 08:07:08 01/13/20 23 01/15/2023 QUANT IFERO N-TB GOLD PLUS quantiferon nil value 0.01 IU/mL Not Available [facility] ([facility]) [address] [place], [address], 01/15/2023 08:07:08 01/13/20 23 01/15/2023 QUANT IFERO N-TB GOLD PLUS quantiferon mitogen value >10.00 IU/mL Not Available [facility] ([facility]) [address] [place], [address], 01/15/2023 08:07:08 01/13/20 23 01/15/2023 QUANT IFERO N-TB GOLD PLUS quantiferon- TB gold plus NEGATI VE negati ve No respo nse to M tuber lianeos is antig ens detec rosita. Infec tion with M doroteo robos is is unlik homero, but high risk [...] [facility] ([facility]) [address] [facility], [place], [address], 01/15/2023 08:07:08 Result Notes None recorded. Procedures [...] Diagnosis SNOMED-CT Code Diagnosis ICD10 Code Diagnosis IMO Codes Diagnosis Note [id number] Abiodun Cardoso, ANTONIA [address] [facility] [address] [place] [address] 01/12/2023 08:05:46 01/12/2023 09:28:09 [employer] Work[employer] license medical examination 229362141 Z02.4 History an d physical examination, pre-employment [id number] Z02.1 Health Concerns Section Related Observation LastModified by Organization Detai ls LastModified Time None Recorded Concern Status LastModified by Organization Details LastModified Time None Recorded Advance Directives Directive None Recorded Payers Insurance Date Sequence Insurance Name Policy Number Policy Bansal Covered Member ID Bansal Member ID Guarantor Name 01/12/2023 OC-ESCREEN Faith Valdivia [id number] Faith Valdivia Notes Date Note Type Note Provider Name a nd Address Organization Details Recorded Time 01/12/2023 text/html physical Abiodun ANTONIA Cardoso [address] [place], [address], [place] - [facility] 01/12/2023 09:20:06 OBGyn Episode No OBEpisode recorded.
== END 2025-08-13 12:03 | disposition home or self-care (01) ==
LOC: HO.HWS 11:01
PROVIDERS: PCP Internal Medicine; Visit Provider Advanced Practice Midwife
DX: R23.2 Flushing (principal)
CPT/HCPCS: 99203

== ENCOUNTER → 2025-08-13 11:00 | Outpatient (BNVA) | payer OTHER, SELFPAY | PROVIDERS: PCP Internal Medicine; Visit Provider Advanced Practice Midwife | DX: R23.2 Flushing (principal) | CPT/HCPCS: 99202 ==

== ENCOUNTER 2025-08-22 15:47 | Outpatient (REF) | payer OTHER, SELFPAY ==
--- OUTSIDE RECORDS SUMMARY | 2025-08-22 16:42 | XMS_ITS | Clinical Summary ---
Author Organization [employer] Address [address] [facility] [address] [place] [address] Care Team Providers Care Retail Representative Name Role Phone Unavailable Primary Care Provider [...] patient's age to complete this topic Insurance [facility]
--- OUTSIDE RECORDS SUMMARY | 2025-08-22 16:42 | XMS_ITS | Data Portability ---
Author Organization [facility], [address] Address [address] [place] [address] Assessment No assessment recorded. Plan of Treatment Reminders Order Date Submit Date Provider Last Modified By Organization Details Last Modified Time Details Appointments None recorded. Lab Mycobacteri um tuberculosi s stimulated gamma interferon, qual, blood 2022 023 CRESSON [facility], [address] [place] [address], [place], [address], 08:07:08 Referral None recorded. Procedures None recorded. Surgeries None recorded. Imaging None recorded. Medication Orders None recorded. Patient TargetsNo targets recorded. Patient Instructions Encounter Date Encounter Id Patient Instructions Last Modified By Organization Details Last Modified Time 01/12/2023 [id number] This physical does not replace the annual [...] PERFOR MED. Not Available [facility] ([facility]) [address] [facility], [place], [address], 01/15/2023 08:07:08 01/13/20 23 01/14/2023 QUANT IFERO [...] ol for the test. Not Available [facility] ([facility]) [address] [place], [address], 01/15/2023 08:07:08 01/13/20 23 01/15/2023 QUANT IFERO N-TB GOLD PLUS quantiferon TB1 Ag value 0.01 IU/mL Not Available [facility] ([facility]) [address] [place], [address], 01/15/2023 08:07:08 01/13/20 23 01/15/2023 QUANT IFERO N-TB GOLD PLUS quantiferon TB2 Ag value 0.00 IU/mL Not Available [facility] ([facility]) [address] [place], [address], 01/15/2023 08:07:08 01/13/20 23 01/15/2023 QUANT IFERO N-TB GOLD PLUS quantiferon nil value 0.01 IU/mL Not Available [facility] ([facility]) [address] [place], [address], 01/15/2023 08:07:08 01/13/20 23 01/15/2023 QUANT IFERO N-TB GOLD PLUS quantiferon mitogen value >10.00 IU/mL Not Available [facility] ([facility]) [address] [place], [address], 01/15/2023 08:07:08 01/13/20 23 01/15/2023 QUANT IFERO [...] y metho dolog y Not Available [facility] ([facility]) [address] [facility], [place], [address], 01/15/2023 08:07:08 Result Notes None recorded. Procedures [...] ICD10 Code Diagnosis IMO Codes Diagnosis Note [id number] Abiodun Cardoso, ANTONIA [address] [facility] [address] [place] [address] 01/12/2023 08:05:46 01/12/2023 09:28:09 [employer] license medical examination [id number] Z02.4 History an d physical examination, pre-employment [id number] Z02.1 Health Concerns Section Related Observation LastModified by Organization Detai ls LastModified Time None Recorded Concern Status LastModified by Organization Details LastModified Time None Recorded Advance Directives Directive None Recorded Payers Insurance Date Sequence Insurance Name Policy Number Policy Bansal Covered Member ID Bansal Member ID Guarantor Name 01/12/2023 OC-ESCREEN Faith Valdivia [id number] Faith Valdivia Notes Date Note Type Note Provider Name a nd Address Organization Details Recorded Time 01/12/2023 text/html physical Abiodun ANTONIA Cardoso [address] [place], [address], [place] - [facility] 01/12/2023 09:20:06 OBGyn Episode No OBEpisode recorded.
== END 2025-08-22 15:48 | disposition home or self-care (01) ==
LOC: HO.MAMMO 15:47
PROVIDERS: PCP Internal Medicine; Visit Provider Internal Medicine
DX: Z12.31 Encounter for screening mammogram for malignant neoplasm of breast (principal)
CPT/HCPCS: 77063; 77067

== ENCOUNTER → 2025-08-22 16:00 | Outpatient (BNV) | payer OTHER, SELFPAY | PROVIDERS: PCP Internal Medicine; Visit Provider Internal Medicine | DX: Z12.31 Encounter for screening mammogram for malignant neoplasm of breast (principal) | CPT/HCPCS: 77063; 77067 ==